=== PATIENT | female | born 1970 | race Caucasian/White ===

== ENCOUNTER 2017-03-26 14:45 | Emergency (ER) | payer MEDICARE, OTHER ==
[2017-03-26 15:04] VITALS: BP 157/84; PULSE 60; RESP 16; TEMP 98.7
--- NOTE | 2017-03-26 15:29 | ED ---
General Adult HPI - General Chief complaint: Eye Problems Stated complaint: Eye Problem Time Seen by Provider: 03/26/17 15:05 Source: patient, RN notes reviewed Mode of arrival: ambulatory Limitations: no limitations - History of Present Illness Initial comments: This is a 46-year-old female who states she came in today because she has some bleeding on her right eye. Patient denies any trauma or injury patient denies any pain or blurred vision. Patient states she woke up this morning and noted that there is a little blood on the lateral aspect of her right eye. Patient denies any itching or discomfort of the eye. Patient denies any other problems at this time. Patient denies being on any blood thinners. - Related Data Previous Rx's Medication Instructions Recorded ALPRAZolam [Xanax] 1 mg PO Q12H PRN #30 tab 06/03/16 Allergies Allergy/AdvReac Type Severity Reaction Status Date / Time codeine Allergy Anaphylaxis Verified 03/26/17 15:20 Penicillins Allergy Rash/Hives Verified 03/26/17 15:20 Review of Systems ROS Statement: Those systems with pertinent positive or pertinent negative responses have been documented in the HPI. ROS Other: All systems not noted in ROS Statement are negative. Past Medical History Past Medical History: Hyperlipidemia, Hypertension, Myocardial Infarction ([place]), Osteoarthritis ([place]) Additional Past Medical History / Comment(s): chronic back, knee, hip pain, [place] x 4. ABDOMEN WOUND Last Myocardial Infarction Date:: 2012 History of Any Multi-Drug Resistant Organisms: MRSA Date of last positivie culture/infection: 09/08/2015 MDRO Source:: Abdomen Past Surgical History: Section, Heart Catheterization With Stent, Hernia Repair, Tubal Ligation Additional Past Surgical History / Comment(s): .stents 2012, stent 2015, abdominal hernia repair initially done in 2003, revision of the abdominal hernia repair in 10/23/2014, abdominal wall exploration and placement of wound VAC. ABDOMEN SURGERY SURGICAL DEBRIDEMENT X 15 JANUARY 2015 Additional Past Anesthesia/Blood Transfusion Reaction / Comment(s): Hard time coming out of anesthesia. Date of Last Stent Placement:: 2012 Past Psychological History: Anxiety, Bipolar, Depression Smoking Status: Current every day smoker Past Alcohol Use History: Rare Past Drug Use History: Marijuana - Past Family History Father Family Medical History: COPD, CVA/TIA, Diabetes Mellitus Mother Family Medical History: COPD Additional Family Medical History / Comment(s): Hiatal hernia, anxiety General Exam - General Exam Comments Initial Comments: GENERAL Patient is well-developed and well-nourished. Patient is in mild distress. EYES Patient's pupils are equal and round. Extraocular motion is intact. Patient has a conjunctival hemorrhage on the lateral aspect of her right eye. NEURO The patient is alert and oriented 3 PYSCH Patient has normal interpersonal interactions. MUSCULOSKELETAL All 4 times and full range of motion Limitations: no limitations Course Vital Signs 03/26/17 15:02 Temperature 98.7 F Pulse Rate 60 Respiratory 16 Rate Blood Pressure 157/84 O2 Sat by Pulse 99 Oximetry Disposition Clinical Impression: Subconjunctival hemorrhage Disposition: HOME SELF-CARE Condition: Good Instructions: Subconjunctival Hemorrhage (ED) Referrals: Kwan Moore MD [Primary Care Provider] - 1-2 days Time of Disposition: 15:28
== END 2017-03-26 15:40 | disposition home or self-care (01) ==
LOC: EC 14:45
DX: H11.31 Conjunctival hemorrhage, right eye (principal); F17.200 Nicotine dependence, unspecified, uncomplicated; Z86.14 Personal history of Methicillin resistant Staphylococcus aureus infection; Z88.0 Allergy status to penicillin; Z88.5 Allergy status to narcotic agent
CPT/HCPCS: 99283

== ENCOUNTER 2017-06-01 10:23 | Emergency (ER) | payer MEDICARE, OTHER ==
--- NOTE | 2017-06-01 10:50 | ED ---
General Adult HPI - General Chief complaint: Skin/Abscess/Foreign Body Stated complaint: ?GLASS IN RT FOOT Time Seen by Provider: 06/01/17 10:45 Source: patient, family, RN notes reviewed Mode of arrival: ambulatory Limitations: no limitations - History of Present Illness Initial comments: Patient is a pleasant 46-year-old female presenting to the emergency department with right foot pain. Patient states around a month ago she stepped on a piece of glass. Patient thought that she got it all out however now questions if she did. Patient has had continued discomfort since that time. Patient states it hurts to walk on. Last tetanus immunization was 1.5 years ago. No history of chronic foot prominence region. Area discomfort is the distal plantar foot proximal to the second toe. - Related Data Previous Rx's Medication Instructions Recorded Cephalexin [Keflex] 500 mg PO QID #40 cap 06/01/17 Allergies Allergy/AdvReac Type Severity Reaction Status Date / Time codeine Allergy Anaphylaxis Verified 06/01/17 10:42 Penicillins Allergy Rash/Hives Verified 06/01/17 10:42 Review of Systems ROS Statement: Those systems with pertinent positive or pertinent negative responses have been documented in the HPI. ROS Other: All systems not noted in ROS Statement are negative. Constitutional: Denies: fever Eyes: Denies: eye pain ENT: Denies: ear pain Respiratory: Denies: cough Cardiovascular: Denies: chest pain Endocrine: Denies: fatigue Gastrointestinal: Denies: abdominal pain Genitourinary: Denies: dysuria Musculoskeletal: Reports: as per HPI. Denies: back pain Skin: Denies: rash Neurological: Denies: weakness Past Medical History Past Medical History: Hyperlipidemia, Hypertension, Myocardial Infarction ([place]), Osteoarthritis ([place]) Additional Past Medical History / Comment(s): chronic back, knee, hip pain, [place] x 4. ABDOMEN WOUND Last Myocardial Infarction Date:: 2012 History of Any Multi-Drug Resistant Organisms: MRSA Date of last positivie culture/infection: 09/08/2015 MDRO Source:: Abdomen Past Surgical History: Section, Heart Catheterization With Stent, Hernia Repair, Tubal Ligation Additional Past Surgical History / Comment(s): .stents 2012, stent 2015, abdominal hernia repair initially done in 2003, revision of the abdominal hernia repair in 10/23/2014, abdominal wall exploration and placement of wound VAC. ABDOMEN SURGERY SURGICAL DEBRIDEMENT X 15 JANUARY 2015 Additional Past Anesthesia/Blood Transfusion Reaction / Comment(s): Hard time coming out of anesthesia. Date of Last Stent Placement:: 2012 Past Psychological History: Anxiety, Bipolar, Depression Smoking Status: Current every day smoker Past Alcohol Use History: Rare Past Drug Use History: Marijuana - Past Family History Father Family Medical History: COPD, CVA/TIA, Diabetes Mellitus Mother Family Medical History: COPD Additional Family Medical History / Comment(s): Hiatal hernia, anxiety General Exam Limitations: no limitations General appearance: alert, in no apparent distress Head exam: Present: atraumatic Eye exam: Present: normal appearance Neck exam: Present: normal inspection Respiratory exam: Present: normal lung sounds bilaterally Cardiovascular Exam: Present: regular rate, normal rhythm GI/Abdominal exam: Present: soft. Absent: tenderness Extremities exam: Present: tenderness (Right plantar foot on the distal portion just proximal to the second toe with mild swelling and moderate tenderness. No erythema. No warmth.), other (Good strength with flexion and extension against resistance of distal toes. Cap refill less than 2 seconds. Sensation intact.) Neurological exam: Present: alert, other. Absent: motor sensory deficit Psychiatric exam: Present: normal affect, normal mood Skin exam: Present: normal color. Absent: rash Course Vital Signs 06/01/17 10:31 Temperature 97.7 F Pulse Rate 64 Respiratory 20 Rate Blood Pressure 146/109 O2 Sat by Pulse 95 Oximetry Procedures - Incision & Drainage Consent Obtained: verbal consent Time Out Performed?: Yes Site: foot I&D Cleaning Method: Betadine Needle Aspiration Performed?: Yes (No drainage) Patient Tolerated Procedure: well, no complications Medical Decision Making - Medical Decision Making Attempted needle I&D without any evidence of drainage. Patient and family were updated on results and need for follow-up with orthopedics for further evaluation. Patiently placed on antibiotics for possible infection. - Radiology Data Radiology results: report reviewed (Ultrasound right foot shows no evidence of foreign body), image reviewed (Foot x-ray shows no evidence of foreign body) Disposition Clinical Impression: Foot pain Disposition: HOME SELF-CARE Condition: Stable Instructions: Acute Wound Care (ED), Soft Tissue Foreign Body (ED) Additional Instructions: Please follow-up with your primary care physician and orthopedics in the next day or 2 for recheck. Antibiotics as prescribed. Return for increased pain, swelling, redness, fever, worsening symptoms or other concerns. Prescriptions: Cephalexin [Keflex] 500 mg PO QID #40 cap Referrals: Kwan Moore MD [Primary Care Provider] - 1-2 days Omar Palma MD [STAFF PHYSICIAN] - 1-2 days Time of Disposition: 13:14
--- NOTE | 2017-06-01 11:05 | XR ---
EXAMINATION TYPE: XR foot complete RT DATE OF EXAM: 06/01/2017 CLINICAL HISTORY: Stepped on a piece of glass one month ago with persistent pain near the second meta tarsal phalangeal joint concern for foreign body. TECHNIQUE: Frontal, lateral, and oblique images of the right foot are obtained. COMPARISON: None FINDINGS: There is no acute fracture/dislocation evident in the right foot. The joint spaces in the right foot appear within normal limits. The overlying soft tissue appears unremarkable. No radiopaq ue foreign body is identified. Mild hallux valgus deformity is appreciated of the first metatarsal. IMPRESSION: There is no acute fracture or dislocation in the right foot. No radiopaque foreign body is appreciated.
--- NOTE | 2017-06-01 12:41 | US ---
EXAMINATION TYPE: US extremity nonvasc mass RT DATE OF EXAM: 06/01/2017 COMPARISON: NONE CLINICAL HISTORY: r foot pain, r/o fb. Patient states she stepped on glass 1 month ago. Right foot pa in. Small lump on bottom on right foot per patient No abnormality visualized at the area of concern. No focal subcutaneous edema or soft tissue swelling is appreciated sonographically. No focal fluid collection is seen. Plantar aspect of the imaged righ t foot appear symmetric to the left foot. IMPRESSION: No sonographic evidence of radiopaque foreign body.
[2017-06-01 13:27] VITALS: BP 126/69; PULSE 69; RESP 18; TEMP 97.3
== END 2017-06-01 13:26 | disposition home or self-care (01) ==
LOC: EC 10:23
DX: M79.671 Pain in right foot (principal); M79.89 Other specified soft tissue disorders; F17.200 Nicotine dependence, unspecified, uncomplicated; Z88.0 Allergy status to penicillin; Z88.5 Allergy status to narcotic agent
CPT/HCPCS: 10060; 99284

== ENCOUNTER 2017-08-31 12:31 | Inpatient (IN) | payer MEDICARE, OTHER ==
[2017-08-31 13:01] LABS: Basophils % (A) 1 %; Eosinophils # (A) 0.2 k/uL (0-0.7); Eosinophils % (A) 2 %; HCT 47.3 % (34.0-46.0); HGB 15.4 gm/dL (11.4-16.0); Lymphocytes # (A) 1.6 k/uL (1.0-4.8); Lymphocytes % (A) 18 %; MCH 29.3 pg (25.0-35.0); MCHC 32.7 g/dL (31.0-37.0); MCV 89.8 fL (80.0-100.0); Mean Platelet Volume 7.5; Monocytes # (A) 0.4 k/uL (0-1.0); Monocytes % (A) 4 %; Neutrophils % (A) 75 %; Platelet Count 264 k/uL (150-450); RBC 5.26 m/uL (3.80-5.40); RDW 13.2 % (11.5-15.5); WBC 9.4 k/uL (3.8-10.6)
[2017-08-31 13:11] LABS: ALT 33 U/L (9-52); AST 15 U/L (14-36); Acetaminophen <10.0 ug/mL; Alkaline Phosphatase 72 U/L (38-126); Anion Gap 11 mmol/L; Blood Urea Nitrogen 17 mg/dL (7-17); Calcium 9.3 mg/dL (8.4-10.2); Carbon Dioxide 22 mmol/L (22-30); Chloride 107 mmol/L (98-107); Glucose 104 mg/dL (74-99); Potassium 4.4 mmol/L (3.5-5.1); Salicylate <1.0 mg/dL; Sodium 140 mmol/L (137-145); Total Bilirubin 0.2 mg/dL (0.2-1.3)
--- NOTE | 2017-08-31 13:13 | ED ---
General Adult HPI - General Source: patient, family, EMS, RN notes reviewed, old records reviewed Mode of arrival: EMS Limitations: no limitations <Kristopher Shay - Last Filed: 08/31/17 13:12> <Nikunj Goodwin - Last Filed: 08/31/17 20:03> - General Chief complaint: Psychiatric Symptoms Stated complaint: Mental Health Time Seen by Provider: 08/31/17 12:57 - History of Present Illness Initial comments: This is a 47-year-old female to the ER for evaluation. States she presents for evaluation regarding overdose, patient overdosed on necessary as an attempt to kill herself, suicide attempt. Patient denies taking any other drugs or alcohol. (Kristopher Shay) - Related Data Home Medications Medication Instructions Recorded Confirmed No Known Home Medications [No 08/31/17 08/31/17 Known Home Medications] Allergies Allergy/AdvReac Type Severity Reaction Status Date / Time codeine Allergy Anaphylaxis Verified 08/31/17 12:55 Penicillins Allergy Anaphylaxis Verified 08/31/17 12:55 Review of Systems ROS Other: All systems not noted in ROS Statement are negative. <Kristopher Shay - Last Filed: 08/31/17 13:12> ROS Other: All systems not noted in ROS Statement are negative. <Nikunj Goodwin - Last Filed: 08/31/17 20:03> ROS Statement: Those systems with pertinent positive or pertinent negative responses have been documented in the HPI. Past Medical History Past Medical History: Hyperlipidemia, Hypertension, Myocardial Infarction ([place]), Osteoarthritis ([place]) Additional Past Medical History / Comment(s): chronic back, knee, hip pain, [place] x 4. ABDOMEN WOUND Last Myocardial Infarction Date:: 2012 History of Any Multi-Drug Resistant Organisms: MRSA Date of last positivie culture/infection: 09/08/2015 MDRO Source:: Abdomen Past Surgical History: Section, Heart Catheterization With Stent, Hernia Repair, Tubal Ligation Additional Past Surgical History / Comment(s): .stents 2012, stent 2015, abdominal hernia repair initially done in 2003, revision of the abdominal hernia repair in 10/23/2014, abdominal wall exploration and placement of wound VAC. ABDOMEN SURGERY SURGICAL DEBRIDEMENT X 15 JANUARY 2015 Additional Past Anesthesia/Blood Transfusion Reaction / Comment(s): Hard time coming out of anesthesia. Date of Last Stent Placement:: 2012 Past Psychological History: Anxiety, Bipolar, Depression Smoking Status: Current every day smoker Past Alcohol Use History: Rare Past Drug Use History: Marijuana - Past Family History Father Family Medical History: COPD, CVA/TIA, Diabetes Mellitus Mother Family Medical History: COPD Additional Family Medical History / Comment(s): Hiatal hernia, anxiety <Kristopher Shay - Last Filed: 08/31/17 13:12> General Exam Limitations: no limitations General appearance: alert, in no apparent distress Head exam: Present: atraumatic, normocephalic, normal inspection Eye exam: Present: normal appearance, PERRL, EOMI. Absent: scleral icterus, conjunctival injection, periorbital swelling ENT exam: Present: normal exam, mucous membranes moist Neck exam: Present: normal inspection. Absent: tenderness, meningismus, lymphadenopathy Respiratory exam: Present: normal lung sounds bilaterally. Absent: respiratory distress, wheezes, rales, rhonchi, stridor Cardiovascular Exam: Present: regular rate, normal rhythm, normal heart sounds. Absent: systolic murmur, diastolic murmur, rubs, gallop, clicks GI/Abdominal exam: Present: soft, normal bowel sounds. Absent: distended, tenderness, guarding, rebound, rigid Extremities exam: Present: normal inspection, full ROM, normal capillary refill. Absent: tenderness, pedal edema, joint swelling, calf tenderness Back exam: Present: normal inspection Neurological exam: Present: alert, oriented X3, CN II-XII intact Psychiatric exam: Present: normal affect, normal mood Skin exam: Present: warm, dry, intact, normal color. Absent: rash <Kristopher Shay - Last Filed: 08/31/17 13:12> Course <Kristopher Shay - Last Filed: 08/31/17 13:12> <Nikunj Goodwin - Last Filed: 08/31/17 20:03> Vital Signs 08/31/17 08/31/17 08/31/17 12:31 12:53 13:17 Temperature 97.7 F Pulse Rate 130 H 103 H 150 H Respiratory 22 18 24 Rate Blood Pressure 149/83 113/72 O2 Sat by Pulse 94 L 94 L 93 L Oximetry 08/31/17 08/31/17 08/31/17 14:39 16:22 17:10 Temperature 97.2 F L Pulse Rate 96 88 86 Respiratory 14 15 17 Rate Blood Pressure 128/67 120/81 103/56 O2 Sat by Pulse 98 100 95 Oximetry 08/31/17 08/31/17 19:06 19:18 Temperature Pulse Rate 94 80 Respiratory 17 18 Rate Blood Pressure 109/78 109/78 O2 Sat by Pulse 95 94 L Oximetry - Reevaluation(s) Reevaluation #1: 08/31/17 13:12 Patient is medically clear for psychiatric evaluation (Kristopher Shay) Medical Decision Making - Lab Data Result diagrams: 08/31/17 12:46 08/31/17 12:46 <Kristopher Shay - Last Filed: 08/31/17 13:12> - Lab Data Result diagrams: 08/31/17 12:46 08/31/17 12:46 <Nikunj Goodwin - Last Filed: 08/31/17 20:03> - Medical Decision Making This 47-year-old came in for cervical overdose. Patient was monitored in the ER for several half hours and was still quite somnolent. Psyche numbness here twice and was unable to get any information from her because of her somnolence. At this time I feel that she needs observation and serial EKGs until she is awake enough to speak with psychiatry. I spoke with Dr. Moore who accepts the admission. Orders were placed. Psych was placed on consult. (Nikunj Goodwin) - Lab Data Lab Results 08/31/17 08/31/17 Range/Units 12:46 12:46 WBC 9.4 (3.8-10.6) k/uL RBC 5.26 (3.80-5.40) m/uL Hgb 15.4 (11.4-16.0) gm/dL Hct 47.3 H (34.0-46.0) % MCV 89.8 (80.0-100.0) fL MCH 29.3 (25.0-35.0) pg MCHC 32.7 (31.0-37.0) g/dL RDW 13.2 (11.5-15.5) % Plt Count 264 (150-450) k/uL Neutrophils % 75 % Lymphocytes % 18 % Monocytes % 4 % Eosinophils % 2 % Basophils % 1 % Neutrophils # 7.0 (1.3-7.7) k/uL Lymphocytes # 1.6 (1.0-4.8) k/uL Monocytes # 0.4 (0-1.0) k/uL Eosinophils # 0.2 (0-0.7) k/uL Basophils # 0.0 (0-0.2) k/uL Sodium 140 (137-145) mmol/L Potassium 4.4 (3.5-5.1) mmol/L Chloride 107 (98-107) mmol/L Carbon Dioxide 22 (22-30) mmol/L Anion Gap 11 mmol/L BUN 17 (7-17) mg/dL Creatinine 0.90 (0.52-1.04) mg/dL Est GFR (MDRD) Af Amer >60 (>60 ml/min/1.73 sqM) Est GFR (MDRD) Non-Af >60 (>60 ml/min/1.73 sqM) Glucose 104 H (74-99) mg/dL Calcium 9.3 (8.4-10.2) mg/dL Total Bilirubin 0.2 (0.2-1.3) mg/dL AST 15 (14-36) U/L ALT 33 (9-52) U/L Alkaline Phosphatase 72 (38-126) U/L Total Protein 7.0 (6.3-8.2) g/dL Albumin 4.0 (3.5-5.0) g/dL Salicylates <1.0 mg/dL Acetaminophen <10.0 ug/mL Disposition <Kristopher Shay - Last Filed: 08/31/17 13:12> <Nikunj Goodwin - Last Filed: 08/31/17 20:03> Clinical Impression: Overdose Disposition: ADMITTED IP TO THIS [facility] Condition: Stable
[2017-08-31] MEDS ORDERED: SODIUM CHLORIDE 0.9% 500 ML IV STA (13:57)
[2017-08-31] MEDS ORDERED: SODIUM CHLORIDE 0.9% 1,000 ML IV STA ×2 (13:57)
[2017-08-31] MEDS ORDERED: NALOXONE 0.4 MG/ML 1 ML VIAL IV PRN (19:58)
[2017-08-31 21:47] VITALS: BMI 51.7
[2017-08-31 23:43] LABS: Glucose,Whole Blood 101 mg/dL (75-99)
[2017-08-31] MEDS ORDERED: SODIUM CHLORIDE 0.9% 1,000 ML IV ONE (23:44)
[2017-09-01 00:29] LABS: ABG Base Excess -1.1 mmol/L; ABG HCO3 23 mmol/L (21-25); ABG PCO2 38 mmHg (35-45); ABG PO2 70 mmHg (83-108); ABG TCO2 24 mmol/L (19-24)
[2017-09-01 04:52] LABS: HCT 41.5 % (34.0-46.0); HGB 13.3 gm/dL (11.4-16.0); MCH 29.2 pg (25.0-35.0); MCHC 32.1 g/dL (31.0-37.0); MCV 91.1 fL (80.0-100.0); Mean Platelet Volume 6.9; Platelet Count 249 k/uL (150-450); RBC 4.56 m/uL (3.80-5.40); RDW 13.3 % (11.5-15.5)
[2017-09-01 05:03] LABS: ALT 33 U/L (9-52); AST 15 U/L (14-36); Albumin 3.3 g/dL (3.5-5.0); Alkaline Phosphatase 58 U/L (38-126); Anion Gap 4 mmol/L; Blood Urea Nitrogen 15 mg/dL (7-17); Calcium 8.9 mg/dL (8.4-10.2); Carbon Dioxide 27 mmol/L (22-30); Chloride 112 mmol/L (98-107); Glucose 109 mg/dL (74-99); Phosphorus 4.4 mg/dL (2.5-4.5); Potassium 4.2 mmol/L (3.5-5.1); Sodium 143 mmol/L (137-145); Total Bilirubin 0.4 mg/dL (0.2-1.3)
[2017-09-01 05:46] LABS: Amphetamine Screen,Urine Not Detected (NotDetected); Appearance,Urine Clear (Clear); Bacteria,Urine Occasional /hpf; Barbiturate Screen,Urine Not Detected (NotDetected); Benzodiazepines Screen,Urine Detected (NotDetected); Bilirubin,Urine Negative (Negative); Blood,Urine Negative (Negative); Cocaine Screen,Urine Not Detected (NotDetected); Color,Urine Light Yellow; Glucose,Urine (UA) Negative (Negative); Ketones,Urine Negative (Negative); Leukocyte Esterase,Urine Negative (Negative); Methadone Screen, Urine Not Detected (NotDetected); Nitrite,Urine Positive (Negative); Opiate Screen,Urine Not Detected (NotDetected); Oxycodone Screen, Urine Not Detected (NotDetected); PH, Urine 5.5 (5.0-8.0); Phencyclidine Screen,Urine Not Detected (NotDetected); Protein,Urine Negative (Negative); Specific Gravity,Urine 1.004 (1.001-1.035); Squamous Epithelial Cell,Urine <1 /hpf (0-4); Tricyclic Antidepressant,Urine Detected (NotDetected); Urn Cannabinoid Scrn Detected (NotDetected); Urobilinogen,Urine <2.0 mg/dL (<2.0); WBC,Urine 1 /hpf (0-5)
[2017-09-01] MEDS ORDERED: HALOPERIDOL LACTATE 5 MG/ML 1 ML VIAL IVP PRN (09:58)
--- NOTE | 2017-09-01 15:52 | P.CNPUL ---
History of Present Illness Consult date: 09/01/17 Reason for consult: dyspnea, hypoxemia Chief complaint: Agitation and anxiety and hypoxia and drug overdose History of present illness: Mrs. Ma is a 47-year-old female who was seen and evaluated examined in the ICU not much data can be obtained from her and she is sleeping but off note that patient has been very anxious and agitated and combative on the floor as well as in the ICU she is been restrained data has been obtained from sore from the chart as exact details are not available patient unable to give a detailed history it appears that patient intend to do and commit suicide she overdose on Seroquel patient is being monitor observe by psych services as well her EKGs are being monitored closely besides said desaturation hemodynamic status are marginal but stable she was hypotensive requiring fluid resuscitation she did response her hypoxia improved with supplemental oxygen due to her combative nature some of the medical care could not be delivered to her I reviewed her laboratory data, CBC arterial blood gas and chemistry fairly within normal limit , urine for drug screen is positive for nitrite as well as positive for tricyclic antidepressant, benzodiazepine and marijuana Review of Systems ROS unobtainable: due to mental status All systems: negative Past Medical History Past Medical History: Hyperlipidemia, Hypertension, Myocardial Infarction ([place]), Osteoarthritis (OA) Additional Past Medical History / Comment(s): chronic back, knee, hip pain, [place] x 4. ABDOMEN WOUND Last Myocardial Infarction Date:: 2012 History of Any Multi-Drug Resistant Organisms: MRSA Date of last positivie culture/infection: 09/08/2015 MDRO Source:: Abdomen Past Surgical History: Section, Heart Catheterization With Stent, Hernia Repair, Tubal Ligation Additional Past Surgical History / Comment(s): .stents 2012, stent 2015, abdominal hernia repair initially done in 2003, revision of the abdominal hernia repair in 10/23/2014, abdominal wall exploration and placement of wound VAC. ABDOMEN SURGERY SURGICAL DEBRIDEMENT X 15 JANUARY 2015 Additional Past Anesthesia/Blood Transfusion Reaction / Comment(s): Hard time coming out of anesthesia. Date of Last Stent Placement:: 2012 Past Psychological History: Anxiety, Bipolar, Depression Smoking Status: Current every day smoker Past Alcohol Use History: Rare Additional Past Alcohol Use History / Comment(s): Patient is a smoker one pack per day and is currently cut back to 6 cigarettes per day since she was 9 years of age. She does smoke marijuana on a regular basis which is medicalshaneme. She denies any alcohol use. She lives at home with her parents. 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 She is currently unemployed. [place]. Past Drug Use History: Marijuana - Past Family History Father Family Medical History: COPD, CVA/TIA, Diabetes Mellitus Mother Family Medical History: COPD Additional Family Medical History / Comment(s): Hiatal hernia, anxiety Medications and Allergies Home Medications Medication Instructions Recorded Confirmed Type No Known Home Medications [No 08/31/17 08/31/17 History Known Home Medications] Allergies Allergy/AdvReac Type Severity Reaction Status Date / Time codeine Allergy Anaphylaxis Verified 08/31/17 12:55 Penicillins Allergy Anaphylaxis Verified 08/31/17 12:55 Physical Exam Vitals: Vital Signs Temp Pulse Pulse Resp BP BP Pulse Ox 09/01/17 15:00 79 21 138/81 94 L 09/01/17 14:30 77 22 141/73 97 09/01/17 14:00 82 21 137/82 96 09/01/17 13:30 83 19 97 09/01/17 13:00 79 19 181/99 99 09/01/17 12:30 82 20 95 09/01/17 12:00 97.4 F L 74 14 148/95 98 09/01/17 11:30 97 14 134/81 98 09/01/17 11:00 87 22 141/92 92 L 09/01/17 10:30 100 20 141/92 91 L 09/01/17 10:00 86 21 141/74 93 L 09/01/17 09:30 75 18 133/73 93 L 09/01/17 09:00 77 24 133/77 93 L 09/01/17 08:30 77 19 130/75 92 L 09/01/17 08:00 79 24 137/72 97 09/01/17 07:30 80 20 138/77 97 09/01/17 07:00 100 20 131/87 92 L 09/01/17 06:30 82 24 125/85 97 09/01/17 06:00 111 H 20 133/76 92 L 09/01/17 05:30 76 22 132/88 93 L 09/01/17 05:00 123 H 20 123/90 92 L 09/01/17 04:30 94 24 104/67 92 L 09/01/17 04:00 83 24 123/76 92 L 09/01/17 03:30 82 19 104/73 93 L 09/01/17 03:00 109 H 28 H 121/77 93 L 09/01/17 02:30 106 H 29 H 122/81 86 L 09/01/17 02:00 94 21 133/76 79 L 09/01/17 01:30 98 18 136/92 86 L 09/01/17 01:00 80 18 111/68 83 L 09/01/17 00:30 76 23 140/83 92 L 08/31/17 23:30 97 F L 80 18 80/42 90 L 08/31/17 19:18 80 18 109/78 94 L 08/31/17 19:06 94 17 109/78 95 08/31/17 17:10 97.2 F L 86 17 103/56 95 08/31/17 16:22 88 15 120/81 100 Intake and Output 09/01/17 09/01/17 09/01/17 06:59 14:59 22:59 Intake Total 1630 1100 100 Output Total 450 900 130 Balance 1180 200 -30 Intake: IV 1600 1100 100 Sodium Chloride 0.9% 1, 1600 1100 100 000 ml @ 100 mls/hr IV . Q10H [facility] Rx#:[id number] Oral 30 Output: Urine 450 900 130 Other: Voiding Method Indwelling Catheter Indwelling Catheter Indwelling Catheter # Voids 1 Limitations: no limitations General appearance: Reported to be very combinative alert, in no apparent distress, currently sleeping Head exam: Present: atraumatic, normocephalic, normal inspection Eye exam: Present: normal appearance, PERRL, EOMI. Absent: scleral icterus, conjunctival injection, periorbital swelling ENT exam: Present: normal exam, mucous membranes moist Neck exam: Present: normal inspection. Absent: tenderness, meningismus, lymphadenopathy Respiratory exam: Present: normal lung sounds bilaterally. Absent: respiratory distress, wheezes, rales, rhonchi, stridor Cardiovascular Exam: Present: regular rate, normal rhythm, normal heart sounds. Absent: systolic murmur, diastolic murmur, rubs, gallop, clicks GI/Abdominal exam: Present: soft, normal bowel sounds. Absent: distended, tenderness, guarding, rebound, rigid Extremities exam: Present: normal inspection, full ROM, normal capillary refill. Absent: tenderness, pedal edema, joint swelling, calf tenderness Back exam: Present: normal inspection Neurological exam: Agitated and combative but resting right now neurological examination is grossly within normal limits CN II-XII intact Psychiatric exam: As dictated above Skin exam: Present: warm, dry, intact, normal color. Absent: rash Results - Laboratory Findings CBC and BMP: 09/01/17 04:33 09/01/17 04:33 ABG ABG pH 7.40 (7.35-7.45) 09/01/17 00:28 ABG pCO2 38 mmHg (35-45) 09/01/17 00:28 ABG pO2 70 mmHg (83-108) L 09/01/17 00:28 ABG O2 Saturation 94.0 % (94-97) 09/01/17 00:28 Abnormal lab findings: Abnormal Labs 08/31/17 08/31/17 08/31/17 12:46 12:46 23:31 Hct 47.3 H ABG pO2 Chloride Glucose 104 H POC Glucose (mg/dL) 101 H Total Protein Albumin Urine Nitrite Urine Bacteria U Tricyclic Antidepress U Benzodiazepines Scrn U Marijuana (THC) Screen 09/01/17 09/01/17 09/01/17 00:28 03:00 03:00 Hct ABG pO2 70 L Chloride Glucose POC Glucose (mg/dL) Total Protein Albumin Urine Nitrite Positive H Urine Bacteria Occasional H U Tricyclic Antidepress Detected H U Benzodiazepines Scrn Detected H U Marijuana (THC) Screen Detected H 09/01/17 04:33 Hct ABG pO2 Chloride 112 H Glucose 109 H POC Glucose (mg/dL) Total Protein 6.0 L Albumin 3.3 L Urine Nitrite Urine Bacteria U Tricyclic Antidepress U Benzodiazepines Scrn U Marijuana (THC) Screen Assessment and Plan Assessment: Major depression with suicidal attempt with drug overdose Multiple substance overdose with positive urine drug screen Urinary tract infection and early Sirs-like process cannot be excluded Transient hypoxia and hypotension improved now clearly related to dehydration Plan: We'll continue gentle rehydration supportive care patient will be started on EMPERIC antibiotics DVT and peptic ulcer disease prophylaxis will obtain chest x -ray and labs as well Time with Patient: Greater than 30
[2017-09-01] MEDS ORDERED: LEVOFLOXACIN 500MG-D5W PMX 500 MG in DEXTROSE/WATER 1 100ML.BAG IVPB SCH (16:30)
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
[2017-09-01] MEDS: HEPARIN SODIUM,PORCINE 5,000 UNIT/ML 1 ML VIAL SQ SCH (20:33)
[2017-09-02 05:32] LABS: Basophils # (A) 0.1 k/uL (0-0.2); Basophils % (A) 1 %; Eosinophils # (A) 0.2 k/uL (0-0.7); Eosinophils % (A) 3 %; HCT 43.1 % (34.0-46.0); HGB 13.7 gm/dL (11.4-16.0); Lymphocytes # (A) 1.9 k/uL (1.0-4.8); Lymphocytes % (A) 28 %; MCH 29.5 pg (25.0-35.0); MCHC 31.7 g/dL (31.0-37.0); Mean Platelet Volume 7.7; Monocytes # (A) 0.5 k/uL (0-1.0); Monocytes % (A) 7 %; Neutrophils % (A) 60 %; Platelet Count 233 k/uL (150-450); RBC 4.64 m/uL (3.80-5.40); RDW 14.7 % (11.5-15.5); WBC 6.7 k/uL (3.8-10.6)
[2017-09-02 05:43] LABS: Anion Gap 8 mmol/L; Blood Urea Nitrogen 10 mg/dL (7-17); Calcium 8.7 mg/dL (8.4-10.2); Carbon Dioxide 24 mmol/L (22-30); Chloride 108 mmol/L (98-107); Glucose 89 mg/dL (74-99); Magnesium 1.8 mg/dL (1.6-2.3); Phosphorus 4.3 mg/dL (2.5-4.5); Potassium 4.4 mmol/L (3.5-5.1); Sodium 140 mmol/L (137-145)
[2017-09-02] MEDS ORDERED: PANTOPRAZOLE 40 MG TABLET PO SCH (07:30)
--- NOTE | 2017-09-02 07:45 | CONS ---
CONSULTATION DATE OF SERVICE: 09/01/2017 PURPOSE FOR CONSULTATION: Evaluate for overdose/suicide attempt. HISTORY OF PRESENTING ILLNESS: The patient is a 47-year-old female. She was admitted to ICU after having taken an unknown quantity of Seroquel and Xanax. The patient herself stated that she had 3 tablets of Xanax in a bottle which she took. She also described as having taken "a handful of Seroquel at a time in attempt to kill herself", Apparently on admission to ICU, she was very confused. She became aggressive. She was yelling and this hurtling obscenities at staff. She became very combative. She received p.r.n. medications. She slept some last night. Today she has been awake and clear in her thoughts. She told me today that she did not recall anything about yesterday including the difficult behavior she had. She said that she did have some suicide thoughts, though it came out of a stressful situation at home. She had been away for a few days. She returned early only to find that her significant other had been having an affair. They got into a big argument. She became agitated and had taken the medications. The patient says today she is not suicidal. She acknowledges that she had a behavior like this in 2012. She says that otherwise she is at home. She has not been sleeping well for many months. She has had low mood. She says the home situation is very stressful. She lives with her parents, her son and a niece and nephew. She says the niece and nephew are heavy into drugs. She says that she has had depression over a long period of time, though she ended up losing medication coverage so has not been taking any psychotropic medications. She did have 2 admissions in July 2016 in May 2016. During those admissions, it was noted that the patient was on Xanax 1 mg twice a day and Celexa 40 mg a day. There are no further details. The patient was vague at what point in time she may have stopped those medications. When I asked her about her daily life situation, she says mostly she is at home. She sits on the couch and watches TV as about her only activity. Notes that she smokes marijuana on a daily basis. She reports that she does not drink alcohol or do other abusive substances. MENTAL STATUS: When he saw the patient, she was lying in bed. She gave fair eye contact. Psychomotor activity was slow. Speech was monotone. She answered questions with brief responses. Her affect was blunted. Her mood reserved. It was difficult to say if she was distressed. ASSESSMENT: This 47-year-old female is diagnosed with major depression and overdose of Seroquel and Xanax. She also has likely marijuana dependence. When I started talking to the patient about the issues of ongoing marijuana use in the phase of depressive issues, the patient became very angry and indicated that she had no interest in getting information regarding marijuana. She said her issues at home had nothing to do with marijuana, but rather a bad situation. I did make the suggestion that use of marijuana can contribute to depression as well as impulsive behavior, though did not make an effort to discuss issues further. At this point, the patient has shown progress in terms of some clearing of cognition. I will not make any further changes in treatment at this time. I did make mention to the patient that there might be the option of transferring to the psychiatric unit if that seemed to be a good treatment choice. Indicated to nursing that we would need to look at making connection with the family if the patient were to return home as we need some reliable information about any risks for safety. I will continue to follow. GILBERTO / KAIT: [id number] /
[2017-09-02] MEDS: HEPARIN SODIUM,PORCINE 5,000 UNIT/ML 1 ML VIAL SQ SCH (08:59)
--- NOTE | 2017-09-02 09:20 | XR ---
EXAMINATION TYPE: XR chest 1V portable DATE OF EXAM: 09/02/2017 COMPARISON: 07/24/2016 HISTORY: Chest pain TECHNIQUE: Single frontal view of the chest is obtained. FINDINGS: Nodular appearing 8 mm density right midlung. Heart prominent but stable. No pleural effus ion or pneumothorax. No overt failure. IMPRESSION: 8 mm right midlung area of nodule or subsegmental consolidation. Short-term follow-up PA and lateral views the chest recommended.
[2017-09-02] MEDS ORDERED: CITALOPRAM HYDROBROMIDE 20 MG TAB PO SCH (09:30)
[2017-09-02] MEDS ORDERED: METOPROLOL TARTRATE 12.5 MG TAB PO SCH (12:45)
--- NOTE | 2017-09-02 12:52 | P.PN ---
Subjective Progress Note Date: 09/02/17 09/02/2017, patient seen and evaluated examined during the rounds she is awake and alert breathing comfortably more comfortable her blood pressure noted to be very I1 90/70 heart rate in 70s to 80s patient used to take Lopressor 2 times a day has stopped as well unknown time in the past, patient is being evaluated for the drug overdose suicidal ideation thought by psychiatric service Objective - Vital Signs Vital signs: Vital Signs Temp 98.6 F 09/02/17 12:00 Pulse 72 09/02/17 12:00 Resp 20 09/02/17 12:00 BP 171/100 09/02/17 12:00 Pulse Ox 93 L 09/02/17 12:00 Intake & Output 09/01/17 09/02/17 09/02/17 18:59 06:59 18:59 Intake Total 1600 740 500 Output Total 1580 1630 1030 Balance 20 -250 -530 Weight 141.5 kg Intake: IV 1600 740 400 Levofloxacin 500Mg-D5w 100 Pmx 500 mg In Dextrose/ Water 1 100ml.bag @ 100 mls/hr IVPB Q24H [facility] Rx#: [id number] Sodium Chloride 0.9% 1, 1500 740 400 000 ml @ 100 mls/hr IV . Q10H STA Rx#:[id number] Intake, IV Titration 100 Amount Sodium Chloride 0.9% 1, 100 000 ml @ 100 mls/hr IV . Q10H STA Rx#:[id number] Output: Urine 1580 1630 1030 Other: Voiding Method Indwelling Catheter Indwelling Catheter Indwelling Catheter - Exam Limitations: altered mental status General appearance: alert, in no apparent distress Head exam: Present: atraumatic Eye exam: Present: normal appearance, PERRL ENT exam: Present: mucous membranes dry Neck exam: Present: normal inspection Respiratory exam: Present: decreased breath sounds Cardiovascular Exam: Present: tachycardia, systolic murmur GI/Abdominal exam: Present: soft. Absent: tenderness Extremities exam: Present: normal inspection Neurological exam: Present: alert, oriented X3. Absent: motor sensory deficit Psychiatric exam: Present: normal affect, normal mood - Labs CBC & Chem 7: 09/02/17 04:50 09/02/17 04:50 Labs: Abnormal Lab Results - Last 24 Hours (Table) 09/02/17 Range/Units 04:50 Chloride 108 H (98-107) mmol/L Assessment and Plan Assessment: unControlled hypertension Major depression with suicidal attempt with drug overdose Multiple substance overdose with positive urine drug screen Urinary tract infection and early Sirs-like process cannot be excluded Transient hypoxia and hypotension improved now clearly related to dehydration Plan: Resume Lopressor 12.5 by mouth 2 times a day also on 25 mg of Cozaar and monitor observe clinical course closely, We'll continue gentle rehydration supportive care patient will be started on EMPERIC antibiotics DVT and peptic ulcer disease prophylaxis patient can be moved out of the ICU to the remote telemetry Time with Patient: Greater than 30
--- NOTE | 2017-09-02 14:45 | CDI ---
Last Revision, July 2017 Documentation Clarification Form Date: 09/02/2017 2:18:00 PM From: Rachelle Meyer Admit Date: 08/31/2017 7:58:00 PM Patient Name: Mirela Ma Visit Number: [id number] Discharge Date: ATTENTION: The Clinical Documentation Specialists (CDI) and [facility] Coding Staff appreciate your assistance in clarifying documentation. Please respond to the clarification below the line at the bottom and electronically sign. The CDI & [facility] Coding staff will review the response and follow-up if needed. Please note: Queries are made part of the Legal Health Record. If you have any questions, please contact the author of this message via ITS. Dr. Kwan Moore Altered mental status was documented in the in your consult on 09/01/17 review of systems unobtainable due to mental status. Patient history/risk factors: Hyperlipidemia, Hypertension, [place] Clinical Indicators: Present for intent to commit suicide with overdose on Seroquel. She is noted to have anxiety, agitated, combative and had to be restrained. She was hypotensive and requiring fluid resuscitation. Labs: Urine drug screen is positive for nitrite, tricyclic antidepressants, benzodiazepine and marijuana. WBC 9.0, 09/01/17 Psych consult: on admission to ICU she was very confused. She became aggressive. She was yelling obscenities at staff. Chest X-ray: 8 mm right midlung area of nodule or subsegmental consolidation Treatment: IV Fluids ICU/Telemetary monitoring Monitor labs In your professional opinion, please clarify the etiology of the altered mental status, if known. Encephalopathy (specify Type: Metabolic encephalopathy, Toxic encephalopathy, Other, and Underlying Medical Illness) Delirium (specify cause) Other condition (please specify) Unable to determine Please continue to document in your progress notes and discharge summary in order to capture severity of illness and risk of mortality. Include clinical findings that support your diagnosis. MTDD
--- NOTE | 2017-09-02 15:12 | CONS ---
CONSULTATION DATE OF SERVICE: 09/02/2017 PURPOSE FOR CONSULTATION: Evaluate for overdose/suicide attempt. INTERVAL HISTORY: The patient has been doing fairly well. She had a quiet evening last night. She has been awake. She interacts with staff. She has been appropriate in her mood and behavior. I met with the patient and her mother. The concern was about behavior at home that prompted her coming into the hospital, mainly an overdose. Both mother and the patient confirmed that the behavior was impulsive and out of character for the patient. Mother indicates that she believes it would be safe for the patient to return home and that inpatient psychiatric hospitalization is not needed at this time. The patient herself was in agreement with that. She stated that she was willing to continue on medications. Both she and her mother believe that Celexa was quite helpful for her in the past, though she did not have the money to keep getting refills and so ended up going off it. Mother indicates that the patient is consistent in her followup with Dr. Moore. The patient is willing to be referred for outpatient counseling, which she sees as a potential benefit for her. At this point, from a psychiatric standpoint, the patient is stable to return home. I have completed a negative cert in regards to the petition for hospitalization. I indicated to the nurse that the unit delinquency prevention social worker should meet with the patient to set up a follow-up appointment for individual counseling. She will continue on Celexa [address] Moore will follow her up for her medications. MMODL / IJN: [id number] /
[2017-09-02 15:36] VITALS: BP 163/85; PULSE 70; RESP 14; TEMP 97.8
[2017-09-02] MEDS ORDERED: LEVOFLOXACIN 500 MG TAB PO SCH (16:00)
[2017-09-03] MEDS ORDERED: LOSARTAN 25 MG TAB PO SCH (09:00)
--- NOTE | 2017-09-06 15:00 | CDI ---
Last Revision, July 2017 Documentation Clarification Form Date: 09/02/2017 2:18:00 PM From: Rachelle Meyer RN, CCDS Admit Date: 08/31/2017 7:58:00 PM Patient Name: Mirela Ma Visit Number: [id number] Discharge Date: ATTENTION: The Clinical Documentation Specialists (CDI) and [facility] Coding Staff appreciate your assistance in clarifying documentation. Please respond to the clarification below the line at the bottom and electronically sign. The CDI & [facility] Coding staff will review the response and follow-up if needed. Please note: Queries are made part of the Legal Health Record. If you have any questions, please contact the author of this message via ITS. Dr. Kwan Moore Altered mental status was documented in the in your consult on 09/01/17 review of systems unobtainable due to mental status. Patient history/risk factors: Hyperlipidemia, Hypertension, [place] Clinical Indicators: Present for intent to commit suicide with overdose on Seroquel. She is noted to have anxiety, agitated, combative and had to be restrained. She was hypotensive and requiring fluid resuscitation. Labs: Urine drug screen is positive for nitrite, tricyclic antidepressants, benzodiazepine and marijuana. WBC 9.0, 09/01/17 Psych consult: on admission to ICU she was very confused. She became aggressive. She was yelling obscenities at staff. Chest X-ray: 8 mm right midlung area of nodule or subsegmental consolidation Treatment: IV Fluids ICU/Telemetary monitoring Monitor labs In your professional opinion, please clarify the etiology of the altered mental status, if known. Encephalopathy (specify Type: Metabolic encephalopathy, Toxic encephalopathy, Other, and Underlying Medical Illness) Delirium (specify cause) Other condition (please specify) Unable to determine Please continue to document in your progress notes and discharge summary in order to capture severity of illness and risk of mortality. Include clinical findings that support your diagnosis. MTDD
--- NOTE | 2017-09-15 09:13 | CDI ---
Last Revision, July 2017 Documentation Clarification Form Date: 09/02/2017 2:18:00 PM From: Rachelle Meyer RN, CCDS Admit Date: 08/31/2017 7:58:00 PM Patient Name: Mirela Ma Visit Number: [id number] Discharge Date: ATTENTION: The Clinical Documentation Specialists (CDI) and [facility] Coding Staff appreciate your assistance in clarifying documentation. Please respond to the clarification below the line at the bottom and electronically sign. The CDI & [facility] Coding staff will review the response and follow-up if needed. Please note: Queries are made part of the Legal Health Record. If you have any questions, please contact the author of this message via ITS. Dr. Kwan Moore Altered mental status was documented in the in your consult on 09/01/17 review of systems unobtainable due to mental status. Patient history/risk factors: Hyperlipidemia, Hypertension, [place] Clinical Indicators: Present for intent to commit suicide with overdose on Seroquel. She is noted to have anxiety, agitated, combative and had to be restrained. She was hypotensive and requiring fluid resuscitation. Labs: Urine drug screen is positive for nitrite, tricyclic antidepressants, benzodiazepine and marijuana. WBC 9.0, 09/01/17 Psych consult: on admission to ICU she was very confused. She became aggressive. She was yelling obscenities at staff. Chest X-ray: 8 mm right midlung area of nodule or subsegmental consolidation Treatment: IV Fluids ICU/Telemetary monitoring Monitor labs In your professional opinion, please clarify the etiology of the altered mental status, if known: Encephalopathy (specify Type: Metabolic encephalopathy, Toxic encephalopathy, Other, and Underlying Medical Illness) Delirium (specify cause) Other condition (please specify) Unable to determine Please continue to document in your progress notes and discharge summary in order to capture severity of illness and risk of mortality. Include clinical findings that support your diagnosis. MTDD
--- NOTE | 2017-09-29 14:36 | CDI ---
Last Revision, July 2017 Documentation Clarification Form Date: 09/02/2017 2:18:00 PM From: Rachelle Meyer RN, CCDS Admit Date: 08/31/2017 7:58:00 PM Patient Name: Mirela Ma Visit Number: [id number] Discharge Date: ATTENTION: The Clinical Documentation Specialists (CDI) and [facility] Coding Staff appreciate your assistance in clarifying documentation. Please respond to the clarification below the line at the bottom and electronically sign. The CDI & [facility] Coding staff will review the response and follow-up if needed. Please note: Queries are made part of the Legal Health Record. If you have any questions, please contact the author of this message via ITS. Dr. Kwan Moore Altered mental status was documented in the consult on 09/01/17 review of systems unobtainable due to mental status. Patient history/risk factors: Hyperlipidemia, Hypertension, [place] Clinical Indicators: Per your H/P: Present for intent to commit suicide with overdose on Seroquel. She is noted to have anxiety, agitated, combative and had to be restrained. She is aggressive, yelling and screaming. She was hypotensive and requiring fluid resuscitation. 08/31/17 Vital sign: 80/42 80 18 97. 90 % RA Labs: Urine drug screen is positive for nitrite, tricyclic antidepressants, benzodiazepine and marijuana. WBC 9.0, 09/01/17 Psych consult: on admission to ICU she was very confused. She became aggressive. She was yelling obscenities at staff. Chest X-ray: 8 mm right midlung area of nodule or subsegmental consolidation Treatment: IV Fluids ICU/Telemetary monitoring Monitor labs Neuro checks per protocol In your professional opinion, please further clarify the etiology of the altered mental status, if known. Encephalopathy (specify Type: Toxic encephalopathy, Metabolic encephalopathy, Other, and Underlying Medical Illness) Delirium (specify cause) Other condition (please specify) Unable to determine Please continue to document in your progress notes and discharge summary in order to capture severity of illness and risk of mortality. Include clinical findings that support your diagnosis. MTDD
--- NOTE | 2017-10-01 09:14 | DS ---
DISCHARGE SUMMARY ADDENDUM: Please add under diagnoses: 1. Acute toxic encephalopathy, possibly due to Seroquel overdose. MMODL / IJN: [id number] /
--- NOTE | 2017-10-30 07:27 | DS ---
DISCHARGE SUMMARY DATE OF ADMISSION: 08/31/2017. DATE OF DISCHARGE: 09/02/2017. MEDICATIONS: None. CONDITION: Stable. PROGNOSIS: Guarded. Ambulate as tolerated. Patient was admitted with acute toxic encephalopathy secondary to Seroquel overdose. She was stabilized from medical admission. In the ICU she had delirium and emotional disturbance. Once cleared by psychiatry and Neurology for discharge, she signed herself out AGAINST MEDICAL ADVICE and left the hospital from the ICU. MMODL / IJN: [id number] /
== END 2017-09-02 15:40 | disposition home or self-care (01) | DRG 917 ==
LOC: EC 12:31 → 6SEL 19:58 → 6ICU 23:52
PROVIDERS: ADMIT Family Medicine; ATTEND Family Medicine
DX: T43.592A Poisoning by other antipsychotics and neuroleptics, intentional self-harm, initial encounter (principal); G92 Toxic encephalopathy; Z78.1 Physical restraint status; Z68.42 Body mass index [BMI] 45.0-49.9, adult; N39.0 Urinary tract infection, site not specified; F31.9 Bipolar disorder, unspecified; I25.10 Atherosclerotic heart disease of native coronary artery without angina pectoris; E78.5 Hyperlipidemia, unspecified; I10 Essential (primary) hypertension; M19.90 Unspecified osteoarthritis, unspecified site; R01.1 Cardiac murmur, unspecified; R00.0 Tachycardia, unspecified; R09.02 Hypoxemia; E86.0 Dehydration; F12.20 Cannabis dependence, uncomplicated; R45.87 Impulsiveness; F17.210 Nicotine dependence, cigarettes, uncomplicated; E66.9 Obesity, unspecified; F41.9 Anxiety disorder, unspecified; Z83.3 Family history of diabetes mellitus; I25.2 Old myocardial infarction; Z82.5 Family history of asthma and other chronic lower respiratory diseases; Z82.3 Family history of stroke; Z88.0 Allergy status to penicillin; Z88.5 Allergy status to narcotic agent; Z79.899 Other long term (current) drug therapy; Z86.14 Personal history of Methicillin resistant Staphylococcus aureus infection; Z87.19 Personal history of other diseases of the digestive system; Z95.5 Presence of coronary angioplasty implant and graft; Z91.5 Personal history of self-harm
CPT/HCPCS: 36415; 36600; 71045; 80048; 80053; 80306; 81001; 82075; 82805; 83520; 83735; 84100; 85025; 85027; 93005; 96360; 96361; 99285

== ENCOUNTER 2021-01-10 20:36 | Observation (INO) | payer MEDICARE, OTHER ==
[2021-01-10] MEDS ORDERED: LORazepam 2 MG/ML INJ IV STA (21:05)
[2021-01-10 21:14] LABS: Basophils # (A) 0.1 k/uL (0-0.2); Basophils % (A) 0 %; Eosinophils # (A) 0.2 k/uL (0-0.7); Eosinophils % (A) 2 %; HCT 43.9 % (34.0-46.0); HGB 15.1 gm/dL (11.4-16.0); Lymphocytes # (A) 1.8 k/uL (1.0-4.8); Lymphocytes % (A) 12 %; MCH 29.8 pg (25.0-35.0); MCHC 34.4 g/dL (31.0-37.0); MCV 86.7 fL (80.0-100.0); Mean Platelet Volume 7.2; Monocytes # (A) 0.7 k/uL (0-1.0); Monocytes % (A) 5 %; Neutrophils # (A) 11.9 k/uL (1.3-7.7); Neutrophils % (A) 80 %; Platelet Count 282 k/uL (150-450); RBC 5.06 m/uL (3.80-5.40); RDW 14.1 % (11.5-15.5); WBC 14.8 k/uL (3.8-10.6)
[2021-01-10 21:23] LABS: Albumin 4.1 g/dL (3.5-5.0); Magnesium 1.7 mg/dL (1.6-2.3); Potassium 4.6 mmol/L (3.5-5.1); Total Bilirubin 0.5 mg/dL (0.2-1.3)
--- NOTE | 2021-01-10 21:29 | XR ---
EXAMINATION TYPE: XR chest 2V DATE OF EXAM: 01/10/2021 COMPARISON: 09/02/2017 HISTORY: Chest pain TECHNIQUE: 2 views FINDINGS: There is no heart failure nor confluent pneumonic infiltrate. Costophrenic angles are clear . There are chest leads. IMPRESSION: No active cardiopulmonary disease. Normal heart.
[2021-01-10 21:41] LABS: D-Dimer 0.53 mg/L FEU (<0.60); Partial Thromboplastin Time 23.5 sec (22.0-30.0); Prothrombin Time 10.3 sec (9.0-12.0)
[2021-01-10] MEDS ORDERED: ASPIRIN 81 MG PO STA (21:52)
[2021-01-10] MEDS ORDERED: HYDROmorphone 0.5 MG/0.5 ML SYRINGE IVP STA (21:53)
--- NOTE | 2021-01-10 21:55 | ED ---
General Adult HPI - General Chief complaint: Chest Pain Stated complaint: Chest Pain Time Seen by Provider: 01/10/21 20:48 Source: patient, RN notes reviewed Mode of arrival: wheelchair Limitations: no limitations - History of Present Illness Initial comments: 50-year-old female with a past medical history of CAD with 5 stents presents to the emergency room for chest pain. Patient reports that she is having chest pain and left shoulder numbness. States the pain is sharp in nature. Patient also feels short of breath. States she feels very anxious. Patient reports the pain started around 3:30 this afternoon or about 5 hours prior to arrival. She states she also feels diaphoretic. Patient has no other complaints at this time including shortness of breath, chest pain, abdominal pain, nausea or vomiting, headache, or visual changes. - Related Data Home Medications Medication Instructions Recorded Confirmed No Known Home Medications 08/31/17 08/31/17 Allergies Allergy/AdvReac Type Severity Reaction Status Date / Time codeine Allergy Anaphylaxis Verified 01/10/21 20:45 Influenza Virus Vaccines Allergy Anaphylaxis Verified 01/10/21 20:45 Penicillins Allergy Anaphylaxis Verified 01/10/21 20:45 Review of Systems ROS Statement: Those systems with pertinent positive or pertinent negative responses have been documented in the HPI. ROS Other: All systems not noted in ROS Statement are negative. Past Medical History Past Medical History: Hyperlipidemia, Hypertension, Myocardial Infarction ([place]), Osteoarthritis ([place]) Additional Past Medical History / Comment(s): chronic back, knee, hip pain, [place] x 4. ABDOMEN WOUND Last Myocardial Infarction Date:: 2012 History of Any Multi-Drug Resistant Organisms: MRSA Date of last positivie culture/infection: 09/08/2015 MDRO Source:: Abdomen Past Surgical History: Section, Heart Catheterization With Stent, Hernia Repair, Tubal Ligation Additional Past Surgical History / Comment(s): .stents 2012, stent 2015, abdominal hernia repair initially done in 2003, revision of the abdominal hernia repair in 10/23/2014, abdominal wall exploration and placement of wound VAC. ABDOMEN SURGERY SURGICAL DEBRIDEMENT X 15 JANUARY 2015 Additional Past Anesthesia/Blood Transfusion Reaction / Comment(s): Hard time coming out of anesthesia. Date of Last Stent Placement:: 2012 Past Psychological History: Anxiety, Bipolar, Depression Smoking Status: Current every day smoker Past Alcohol Use History: Rare Past Drug Use History: IV Drug Use, Marijuana - Past Family History Father Family Medical History: COPD, CVA/TIA, Diabetes Mellitus Mother Family Medical History: COPD Additional Family Medical History / Comment(s): Hiatal hernia, anxiety General Exam Limitations: no limitations General appearance: alert, in no apparent distress Head exam: Present: atraumatic, normocephalic, normal inspection Eye exam: Present: normal appearance, PERRL, EOMI. Absent: scleral icterus, conjunctival injection, periorbital swelling ENT exam: Present: normal exam, mucous membranes moist Neck exam: Present: normal inspection, full ROM. Absent: tenderness, meningismus, lymphadenopathy Respiratory exam: Present: normal lung sounds bilaterally. Absent: respiratory distress, wheezes, rales, rhonchi, stridor Cardiovascular Exam: Present: regular rate, normal rhythm, normal heart sounds. Absent: systolic murmur, diastolic murmur, rubs, gallop, clicks GI/Abdominal exam: Present: soft, normal bowel sounds. Absent: distended, tenderness, guarding, rebound, rigid Course Vital Signs 01/10/21 01/10/21 20:43 22:22 Temperature 97.9 F 97.7 F Pulse Rate 98 70 Respiratory 26 H 18 Rate Blood Pressure 156/87 123/74 O2 Sat by Pulse 95 91 L Oximetry EKG Findings - EKG Comments: EKG Findings:: 2054: Sinus rhythm, ventricular rate 85, AL interval 136, QTC 473. 2055: Normal sinus rhythm, ventricular rate 72, QRS duration 80, QTc 453 Medical Decision Making - Medical Decision Making Vitals are stable. Patient very anxious upon arrival. Nonischemic. Pain did not resolve with nitro 3 at home, although patient reports these may have been . CBC shows leukocytosis, likely reactive. CMP unremarkable. Troponin negative. D-dimer within normal limits. Given patient's risk factors she will be admitted for cardiology consultation and trending troponin. - Lab Data Result diagrams: 01/10/21 21:07 01/10/21 21:07 Lab Results 01/10/21 01/10/21 01/10/21 Range/Units 21:07 21:07 21:07 WBC 14.8 H (3.8-10.6) k/uL RBC 5.06 (3.80-5.40) m/uL Hgb 15.1 (11.4-16.0) gm/dL Hct 43.9 (34.0-46.0) % MCV 86.7 (80.0-100.0) fL MCH 29.8 (25.0-35.0) pg MCHC 34.4 (31.0-37.0) g/dL RDW 14.1 (11.5-15.5) % Plt Count 282 (150-450) k/uL MPV 7.2 Neutrophils % 80 % Lymphocytes % 12 % Monocytes % 5 % Eosinophils % 2 % Basophils % 0 % Neutrophils # 11.9 H (1.3-7.7) k/uL Lymphocytes # 1.8 (1.0-4.8) k/uL Monocytes # 0.7 (0-1.0) k/uL Eosinophils # 0.2 (0-0.7) k/uL Basophils # 0.1 (0-0.2) k/uL PT 10.3 (9.0-12.0) sec INR 1.0 (<1.2) APTT 23.5 (22.0-30.0) sec D-Dimer 0.53 (<0.60) mg/L FEU Sodium 135 L (137-145) mmol/L Potassium 4.6 (3.5-5.1) mmol/L Chloride 103 (98-107) mmol/L Carbon Dioxide 23 (22-30) mmol/L Anion Gap 9 mmol/L BUN 14 (7-17) mg/dL Creatinine 0.92 (0.52-1.04) mg/dL Est GFR (CKD-EPI)AfAm 83 (>60 ml/min/1.73 sqM) Est GFR (CKD-EPI)NonAf 72 (>60 ml/min/1.73 sqM) Glucose 111 H (74-99) mg/dL Calcium 9.0 (8.4-10.2) mg/dL Magnesium 1.7 (1.6-2.3) mg/dL Total Bilirubin 0.5 (0.2-1.3) mg/dL AST 23 (14-36) U/L ALT 17 (4-34) U/L Alkaline Phosphatase 78 (38-126) U/L Troponin I (0.000-0.034) ng/mL Total Protein 7.0 (6.3-8.2) g/dL Albumin 4.1 (3.5-5.0) g/dL Lipase 81 (23-300) U/L 01/10/21 Range/Units 21:07 WBC (3.8-10.6) k/uL RBC (3.80-5.40) m/uL Hgb (11.4-16.0) gm/dL Hct (34.0-46.0) % MCV (80.0-100.0) fL MCH (25.0-35.0) pg MCHC (31.0-37.0) g/dL RDW (11.5-15.5) % Plt Count (150-450) k/uL MPV Neutrophils % % Lymphocytes % % Monocytes % % Eosinophils % % Basophils % % Neutrophils # (1.3-7.7) k/uL Lymphocytes # (1.0-4.8) k/uL Monocytes # (0-1.0) k/uL Eosinophils # (0-0.7) k/uL Basophils # (0-0.2) k/uL PT (9.0-12.0) sec INR (<1.2) APTT (22.0-30.0) sec D-Dimer (<0.60) mg/L FEU Sodium (137-145) mmol/L Potassium (3.5-5.1) mmol/L Chloride (98-107) mmol/L Carbon Dioxide (22-30) mmol/L Anion Gap mmol/L BUN (7-17) mg/dL Creatinine (0.52-1.04) mg/dL Est GFR (CKD-EPI)AfAm (>60 ml/min/1.73 sqM) Est GFR (CKD-EPI)NonAf (>60 ml/min/1.73 sqM) Glucose (74-99) mg/dL Calcium (8.4-10.2) mg/dL Magnesium (1.6-2.3) mg/dL Total Bilirubin (0.2-1.3) mg/dL AST (14-36) U/L ALT (4-34) U/L Alkaline Phosphatase (38-126) U/L Troponin I <0.012 (0.000-0.034) ng/mL Total Protein (6.3-8.2) g/dL Albumin (3.5-5.0) g/dL Lipase (23-300) U/L Disposition Clinical Impression: Chest pain Disposition: ADMITTED IP TO THIS HOSP Is patient prescribed a controlled substance at d/c from ED?: No Referrals: Kwan Moore MD [Primary Care Provider] - 1-2 days Time of Disposition: 22:26
[2021-01-10] MEDS ORDERED: NITROGLYCERIN SL TABS 0.4 MG TAB SUBLINGUAL PRN (22:36)
[2021-01-10] MEDS ORDERED: ONDANSETRON 4 MG/2 ML VIAL IVP PRN (22:39)
[2021-01-11] MEDS: HYDROmorphone 0.5 MG/0.5 ML SYRINGE IVP PRN ×4 (01:11→15:44)
[2021-01-11 01:28] LABS: Glucose,Whole Blood 107 mg/dL (75-99)
[2021-01-11] MEDS ORDERED: LORazepam 2 MG/ML INJ IV STA (07:55)
[2021-01-11] MEDS ORDERED: ATORVASTATIN 80 MG TAB PO SCH ×2 (08:11→21:00)
[2021-01-11] MEDS ORDERED: METOPROLOL SUCCINATE (ER) 25 MG TAB.ER.24H PO SCH ×2 (08:11→21:00)
--- NOTE | 2021-01-11 08:54 | CONS ---
CONSULTATION Mirela Ma is a 50-year-old lady who is morbidly obese and seems to be quite noncompliant with medications. She has history of CAD with prior stenting of circumflex performed in May, rechecked in July and this was in 2015. However, she stopped all her medications and recently saw Dr. Melgoza and medications were resumed in the form of aspirin 81 mg daily, metoprolol succinate 25 mg daily and Lipitor 80 mg daily. She was at a [facility] yesterday and developed chest discomfort and decided to come to the emergency room. She was having left shoulder numbness and a sharp pain in the left chest. Quality of pain seemed very atypical. She was quite anxious on arrival and after arrival 3 sets of troponins have been performed and were unremarkable. When I walked into the room, she was actually sleeping and I asked her about the chest pain. She started crying and then I asked her about compliance with medications and then she was very rude and nasty, did not wish to see me and wanted to see Dr. Melgoza. I explained to her that I am production operator and I will be the one evaluating her. She continues to smoke. When I questioned about her smoking, she was also upset again. However, it appears that this patient is noncompliant with medications, wishes to have some pain medications and has no chest pain to suggest angina. She carries a diagnosis of anxiety, depression, possible bipolar disorder, smokes every day and uses marijuana. At the time of my evaluation, she is more upset but does not have any chest discomfort. Her 3 sets of troponins are unremarkable. EKG is unremarkable. I am suggesting that we should optimize her medical therapy and suggested that I will resume aspirin 81 mg daily, metoprolol succinate and Lipitor. She is receptive to this. PAST MEDICAL HISTORY: 1. Morbid obesity. 2. Smoking and COPD, possible sleep apnea. 3. History of smoking and marijuana use and also IV drug abuse in the past according to the chart. 4. She has anxiety and depression. 5. She has a chronic back pain and knee and hip pain as well. 6. She is status post PCI of circumflex in May 2016, which was patent in July 2016. EXAMINATION: Her blood pressure is 130/70, pulse rate is 68 per minute regular. HEENT unremarkable. Fundus was not examined by me. Neck is supple. Short, thick cannot appreciate JVD. No carotid bruit. Heart exam reveals S1, S2. distant heart sounds. No significant murmurs. Lungs reveal diminished air entry. Abdomen is soft. Lower extremities reveal diminished pulses. Central nervous system grossly no focal deficits. EKG revealed sinus mechanism, leftward axis, nonspecific ST changes. LAB DATA: Reveals normal troponins. IMPRESSION: 1. Agitation. 2. Atypical chest pain. 3. History of coronary artery disease with previous stenting of circumflex in 2016. 4. Obesity. 5. Hypertension. 6. Hyperlipidemia. 7. History of bipolar disorder. RECOMMENDATIONS: I am recommending that we should resume her medications and observe her till tomorrow. If she has no further pain, she can be discharged. I would increase activity. However, patient is agitated. She may sign out against medical advice. Advised to be compliant with medications. Thank you very much for the consult. MMODL / IJN: [id number] /
[2021-01-11] MEDS ORDERED: ASPIRIN 81 MG PO SCH (09:00)
[2021-01-11] MEDS ORDERED: ASPIRIN 325 MG TAB PO SCH (09:00)
[2021-01-11 09:56] LABS: Chol/HDL Ratio 3.37; LDL Cholesterol,Calculated 66.8 mg/dL (0.0-131.0); VLDL Calculation 16.2 mg/dL (5.00-40.00)
[2021-01-11 15:17] VITALS: BP 115/73; PULSE 58; RESP 20; TEMP 98.2
--- NOTE | 2021-01-11 21:34 | P.HPIM ---
History of Present Illness H&P Date: 01/11/21 Chief Complaint: Chest pain 50-year-old female with a past medical history of CAD with 5 stents presents to the emergency room for chest pain. Patient reports that she is having chest pain and left shoulder numbness. States the pain is sharp in nature. Patient also feels short of breath. States she feels very anxious. Patient reports the pain started around 3:30 this afternoon or about 5 hours prior to arrival. She states she also feels diaphoretic. Patient has no other complaints at this time including shortness of breath, chest pain, abdominal pain, nausea or vomiting, headache, or visual changes. EKG Findings:: 2054: Sinus rhythm, ventricular rate 85, PA interval 136, QTC 473. 2055: Normal sinus rhythm, ventricular rate 72, QRS duration 80, QTc 453 CBC shows leukocytosis, likely reactive. CMP unremarkable. Troponin negative. D-dimer within normal limits. Given patient's risk factors she will be admitted for cardiology consultation and trending troponin. Review of Systems REVIEW OF SYSTEMS: CONSTITUTIONAL: No fever, no malaise, no fatigue. HEENT: No recent visual problems or hearing problems. Denied any sore throat. CARDIOVASCULAR: No chest pain, orthopnea, PND, no palpitations, no syncope. PULMONARY: No shortness of breath, no cough, no hemoptysis. GASTROINTESTINAL: No diarrhea, no nausea, no vomiting, no abdominal pain. NEUROLOGICAL: No headaches, no weakness, no numbness. HEMATOLOGICAL: Denies any bleeding or petechiae. GENITOURINARY: Denies any burning micturition, frequency, or urgency. MUSCULOSKELETAL/RHEUMATOLOGICAL: Denies any joint pain, swelling, or any muscle pain. ENDOCRINE: Denies any polyuria or polydipsia. The rest of the 14-point review of systems is negative. Past Medical History Past Medical History: Hyperlipidemia, Hypertension, Myocardial Infarction ([place]), Osteoarthritis (OA) Additional Past Medical History / Comment(s): chronic back, knee, hip pain, [place] x 4. ABDOMEN WOUND Last Myocardial Infarction Date:: 2012 History of Any Multi-Drug Resistant Organisms: MRSA Date of last positivie culture/infection: 09/08/2015 MDRO Source:: Abdomen Past Surgical History: Section, Heart Catheterization With Stent, Herni a Repair, Tubal Ligation Additional Past Surgical History / Comment(s): .stents 2012, stent 2015, abdominal hernia repair initially done in 2004, revision of the abdominal hernia repair in 10/23/2014, abdominal wall exploration and placement of wound VAC. ABDOMEN SURGERY SURGICAL DEBRIDEMENT X 15 JANUARY 2015 Additional Past Anesthesia/Blood Transfusion Reaction / Comment(s): Hard time coming out of anesthesia. Date of Last Stent Placement:: 2012 Past Psychological History: Anxiety, Bipolar, Depression Smoking Status: Current every day smoker, Current some day smoker Past Alcohol Use History: Rare Additional Past Alcohol Use History / Comment(s): Patient is a smoker one pack per day and is currently cut back to 6 cigarettes per day since she was 9 years of age. She does smoke marijuana on a regular basis which is m [email or web address]. She denies any alcohol use. She lives at home with her parents. 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 She is currently unemployed. There [facility]. Past Drug Use History: IV Drug Use, Marijuana - Past Family History Father Family Medical History: COPD, CVA/TIA, Diabetes Mellitus Mother Family Medical History: COPD Additional Family Medical History / Comment(s): Hiatal hernia, anxiety Medications and Allergies Home Medications Medication Instructions Recorded Confirmed Type Aspirin 81 mg PO DAILY chew 01/11/21 Rx Atorvastatin [Lipitor] 80 mg PO HS 01/11/21 01/11/21 History Metoprolol Succinate (ER) [Toprol 25 mg PO HS 01/11/21 01/11/21 History XL] Allergies Allergy/AdvReac Type Severity Reaction Status Date / Time codeine Allergy Anaphylaxis Verified 01/11/21 07:27 Influenza Virus Vaccines Allergy Anaphylaxis Verified 01/11/21 07:27 Penicillins Allergy Anaphylaxis Verified 01/11/21 07:27 Physical Exam Vitals: Vital Signs Temp Pulse Pulse Resp BP BP Pulse Ox 01/11/21 15:00 98.2 F 58 L 20 115/73 92 L 01/11/21 14:50 58 L 01/11/21 08:00 18 01/11/21 07:00 97.7 F 67 18 130/79 93 L 01/11/21 01:08 98.1 F 81 20 132/84 94 L 01/10/21 23:23 98.0 F 71 20 126/75 95 01/10/21 22:22 97.7 F 70 18 123/74 91 L 01/10/21 20:43 97.9 F 98 26 H 156/87 95 Intake and Output 01/11/21 01/11/21 01/11/21 06:59 14:59 22:59 Other: # Voids 1 Weight 163.293 kg - Constitutional General appearance: Present: average body habitus, cooperative, no acute distress - EENT Eyes: Present: anicteric sclerae, EOMI, PERRLA, normal appearance ENT: Present: hearing grossly normal, normal oropharynx Ears: bilateral: normal - Neck Neck: Present: normal ROM. Absent: lymphadenopathy, rigidity, thyromegaly Carotids: negative: bruit present Thyroid: bilateral: normal size, negative: enlarged, nodule - Respiratory Respiratory: bilateral: CTA, negative: rales, rhonchi, wheezing - Cardiovascular Rhythm: regular Heart sounds: normal: S1, S2 Abnormal Heart Sounds: Absent: systolic murmur, diastolic murmur - Gastrointestinal General gastrointestinal: Present: normal bowel sounds, soft. Absent: distended, organomegaly, tenderness - Genitourinary Genitourinary Comment(s): deferred - Integumentary Integumentary: Present: normal turgor. Absent: jaundiced, rash, ulcer - Neurologic Neurologic: Present: CNII-XII intact. Absent: focal deficits - Musculoskeletal Musculoskeletal: Present: gait normal, strength equal bilaterally - Psychiatric Psychiatric: Present: A&O x's 3, appropriate affect, intact judgment & insight Results CBC & Chem 7: 01/10/21 21:07 01/10/21 21:07 Labs: Abnormal Lab Results - Last 24 Hours (Table) 01/10/21 01/10/21 01/11/21 Range/Units 21:07 21:07 01:26 WBC 14.8 H (3.8-10.6) k/uL Neutrophils # 11.9 H (1.3-7.7) k/uL Sodium 135 L (137-145) mmol/L Glucose 111 H (74-99) mg/dL POC Glucose (mg/dL) 107 H (75-99) mg/dL HDL Cholesterol (40.0-60.0) mg/dL 01/11/21 Range/Units 02:53 WBC (3.8-10.6) k/uL Neutrophils # (1.3-7.7) k/uL Sodium (137-145) mmol/L Glucose (74-99) mg/dL POC Glucose (mg/dL) (75-99) mg/dL HDL Cholesterol 35.0 L (40.0-60.0) mg/dL Thrombosis Risk Factor Assmnt - Choose All That Apply Each Factor Represents 1 point: Acute [place], Age 41-60 years, Obesity (BMI >25), Swollen legs (current), Varicose veins Thrombosis Risk Factor Assessment Total Risk Factor Score: 5 Thrombosis Risk Factor Assessment Level: High Risk Assessment and Plan Assessment: 1. Atypical chest pain/history of coronary artery disease - Patient had previous stenting of left circumflex in 2016 - We will monitor EKG and trend troponin - Consult cardiology for further recommendations 2. Hypertension; metoprolol 25 mg daily 3. Hyperlipidemia; Lipitor 80 mg by mouth daily at bedtime 4. Morbid obesity; counseling done and need for weight reduction 5. Bipolar disorder; currently not on any meds DVT prophylaxis; SCDs CODE STATUS; full code
== END 2021-01-11 16:43 | disposition home or self-care (01) ==
LOC: EC 20:36 → 6NMEDSUR 22:36
PROVIDERS: ADMIT Hospitalist; ATTEND Hospitalist
DX: R07.89 Other chest pain (principal); I25.10 Atherosclerotic heart disease of native coronary artery without angina pectoris; I10 Essential (primary) hypertension; E78.5 Hyperlipidemia, unspecified; E66.01 Morbid (severe) obesity due to excess calories; F31.9 Bipolar disorder, unspecified; Z20.822 Contact with and (suspected) exposure to COVID-19; Z91.14 Patient's other noncompliance with medication regimen; D72.829 Elevated white blood cell count, unspecified; J44.9 Chronic obstructive pulmonary disease, unspecified; M19.90 Unspecified osteoarthritis, unspecified site; I25.2 Old myocardial infarction; G89.29 Other chronic pain; M54.9 Dorsalgia, unspecified; M25.559 Pain in unspecified hip; F41.9 Anxiety disorder, unspecified; F17.210 Nicotine dependence, cigarettes, uncomplicated; Z68.25 Body mass index [BMI] 25.0-25.9, adult; F12.90 Cannabis use, unspecified, uncomplicated; Z79.82 Long term (current) use of aspirin; Z79.899 Other long term (current) drug therapy; Z88.5 Allergy status to narcotic agent; Z88.0 Allergy status to penicillin; Z88.7 Allergy status to serum and vaccine; Z16.24 Resistance to multiple antibiotics; Z98.51 Tubal ligation status; Z56.0 Unemployment, unspecified; Z98.890 Other specified postprocedural states; Z98.891 History of uterine scar from previous surgery; Z87.19 Personal history of other diseases of the digestive system; Z86.59 Personal history of other mental and behavioral disorders; Z95.5 Presence of coronary angioplasty implant and graft; Z82.5 Family history of asthma and other chronic lower respiratory diseases; Z83.3 Family history of diabetes mellitus
CPT/HCPCS: 96376; 96374; 96375; 99285; 36415; 93005; 85379; 80061; 80053; 83690; 83735; 84484 ×2; 85025; 85610; 85730; 87635; 71046; G0378 ×2; J2060 ×2; J1170 ×2

== ENCOUNTER 2021-02-12 05:47 | Day surgery (SDC) | payer MEDICARE, OTHER ==
[2021-02-09 16:20] VITALS: BMI 59.5
[2021-02-12] MEDS ORDERED: NITROGLYCERIN SL TABS 0.4 MG TAB SUBLINGUAL PRN (05:53)
[2021-02-12] MEDS ORDERED: ASPIRIN 325 MG TAB PO STA (05:53)
[2021-02-12] MEDS ORDERED: SODIUM CHLORIDE 0.9% 1,000 ML in EMPTY BAG 1 BAG IV ONE (05:53)
[2021-02-12] MEDS ORDERED: ATORVASTATIN 80 MG TAB PO STA (05:53)
[2021-02-12] MEDS ORDERED: ALPRAZolam 0.25 MG TAB PO PRN (05:53)
[2021-02-12] MEDS ORDERED: ALPRAZolam 0.5 MG TAB PO PRN (05:53)
[2021-02-12 06:39] VITALS: TEMP 98.4
[2021-02-12 06:41] LABS: Basophils # (A) 0.1 k/uL (0-0.2); Basophils % (A) 1 %; Eosinophils # (A) 0.2 k/uL (0-0.7); Eosinophils % (A) 2 %; HCT 48.3 % (34.0-46.0); HGB 15.6 gm/dL (11.4-16.0); Lymphocytes # (A) 1.8 k/uL (1.0-4.8); Lymphocytes % (A) 16 %; MCH 28.8 pg (25.0-35.0); MCHC 32.4 g/dL (31.0-37.0); Mean Platelet Volume 7.2; Monocytes # (A) 0.6 k/uL (0-1.0); Monocytes % (A) 5 %; Neutrophils # (A) 8.6 k/uL (1.3-7.7); Neutrophils % (A) 75 %; Platelet Count 300 k/uL (150-450); RBC 5.42 m/uL (3.80-5.40); RDW 14.3 % (11.5-15.5); WBC 11.5 k/uL (3.8-10.6)
[2021-02-12] MEDS ORDERED: HEPARIN SODIUM,PORCINE 2,500 UNIT in SODIUM CHLORIDE 0.9% 250 ML IRRIGATION PRN (07:00)
[2021-02-12] MEDS ORDERED: HEPARIN SODIUM,PORCINE 10,000 UNIT in SODIUM CHLORIDE 0.9% 1,000 ML IRRIGATION PRN (07:00)
[2021-02-12 07:13] LABS: Potassium 4.8 mmol/L (3.5-5.1)
[2021-02-12] MEDS ORDERED: MIDAZOLAM 2 MG/2 ML VIAL IV ONE ×2 (07:50→07:58)
[2021-02-12] MEDS ORDERED: LIDOCAINE 1% INJ 10MG/ML (20 ML MDV) SQ ONE ×2 (07:51→08:09)
[2021-02-12] MEDS ORDERED: IOPAMIDOL-370 125ML BTL INJ ONE (08:10)
[2021-02-12] MEDS ORDERED: fentaNYL (PF) 50 MCG/ML 2 ML AMP IV ONE (08:12)
[2021-02-12] MEDS ORDERED: RX INFO: IV CONTRAST WAS GIVEN 1 EACH MISC MISCELLANE PRN (08:13)
[2021-02-12] MEDS ORDERED: SODIUM CHLORIDE 0.9% 1,000 ML IV SCH (08:15)
[2021-02-12] MEDS ORDERED: HYDROmorphone 1 MG/ML 1 ML SYRINGE ONE (09:04)
[2021-02-12] MEDS ORDERED: HYDROmorphone 1 MG/ML 1 ML SYRINGE IVP STA (09:05)
--- NOTE | 2021-02-12 09:16 | CC ---
CARDIAC CATHETERIZATION REPORT DATE OF SERVICE: 02/12/2021 PERFORMING PHYSICIAN: Micheal Melgoza MD. PROCEDURE PERFORMED: 1. Selective right and left coronary angiogram. 2. Left heart catheterization. INDICATION: Chest discomfort concerning for angina in this 50-year-old female patient who unfortunately continues to smoke. APPROACH: Right common femoral artery. COMPLICATION: None. LEVEL OF SEDATION: Moderate with sedation length of 16 minutes. PROCEDURE DESCRIPTION: After obtaining informed consent, the patient was brought to the cardiac equipment operator/laborer. The right common femoral artery was cannulated using micropuncture technique and a micropuncture wire passed easily. Then I placed a 6-Eritrean sheath in the right common femoral artery. I did selective right and left coronary angiogram performed using JR4 and JL4 catheters. Left heart catheterization was performed using the JR4 catheter which crossed the aortic valve then I did pullback across the valve. The procedure was completed without any complication. SELECTIVE CORONARY ANGIOGRAM: 1. The RCA is a large caliber vessel and is a dominant vessel. The RCA is angiographically normal. Distally, it bifurcates into PDA and PLV branches and both appeared to be angiographically normal. 2. The left main is angiographically normal. It bifurcates into LCX and LAD. 3. The LCX is a moderate caliber vessel. It is a nondominant vessel. The LCX is chronically occluded by the ostium from the left main. It fills by collateral very faintly. 4. The LAD is a large caliber vessel. The LAD is angiographically normal. The LAD gives branches into the first and second diagonal branches and both appeared to be angiographically normal. CONCLUSION: 1. 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 The chronic total occlusion is in-stent occlusion. 2. Normal LVEDP. POSTPROCEDURE MANAGEMENT: 1. Given the above anatomy, with the occlusion from the bifurcation from the left main, I would advise a conservative medical approach and maximize medical treatment at this point. 2. If the patient continues to be symptomatic in spite of that, we will perform a PCI of the left circumflex. MMODL / IJN: [id number] /
--- NOTE | 2021-02-12 09:21 | LTR ---
02/12/2021 RE: Mirela Ma Dear Dr. Moore. Ms. Mirela Ma underwent today heart catheterization and that revealed chronic total occlusion of the left circumflex coronary artery. I advised maximized medical treatment and follow up with the patient. I want to thank you for allowing me to participate in her care and please do not hesitate to call if you have any questions or concerns. Sincerely, MD GILBERTO Power / KATI: [id number] /
[2021-02-12 10:26] VITALS: BP 149/70; PULSE 54; RESP 16
== END 2021-02-12 12:37 | disposition home or self-care (01) ==
LOC: CATHCVL 05:47
PROVIDERS: ATTEND Internal Medicine Interventional Cardiology
DX: I25.110 Atherosclerotic heart disease of native coronary artery with unstable angina pectoris (principal); I25.82 Chronic total occlusion of coronary artery; I10 Essential (primary) hypertension; E78.00 Pure hypercholesterolemia, unspecified; Z20.822 Contact with and (suspected) exposure to COVID-19
CPT/HCPCS: 93458; 80048; 85025; 81025; 87635; C1760; C1894 ×2; C1769 ×2; J2250; J2001; J3010; J1170; Q9967

== ENCOUNTER 2021-05-15 15:11 | Emergency (ER) | payer MEDICARE, OTHER ==
--- NOTE | 2021-05-15 15:39 | ED ---
General Adult HPI - General Chief complaint: Psychiatric Symptoms Stated complaint: Mental Health Time Seen by Provider: 05/15/21 15:22 Source: patient, police, RN notes reviewed Mode of arrival: ambulatory Limitations: no limitations - History of Present Illness Initial comments: Patient is a pleasant 50-year-old female presenting to the emergency Department with complaints of depression. Patient states symptoms worsen especially today. Patient is having palms with her sister who tells her she has not been enough money for rent. Patient feels depressed and suicidal. Patient had thoughts of shooting herself with a gun. Patient states police officers remove the gun from her. No homicidal thoughts. No hallucinations. Patient did take an extra Xanax today because of her anxiety. No other ingestion. No new physical complaints. - Related Data Home Medications Medication Instructions Recorded Confirmed Atorvastatin [Lipitor] 80 mg PO DAILY 01/11/21 05/15/21 Metoprolol Succinate (ER) [Toprol 25 mg PO DAILY 01/11/21 05/15/21 XL] Previous Rx's Medication Instructions Recorded Aspirin 81 mg PO DAILY chew 01/11/21 Allergies Allergy/AdvReac Type Severity Reaction Status Date / Time codeine Allergy Anaphylaxis Verified 05/15/21 16:36 Influenza Virus Vaccines Allergy Anaphylaxis Verified 05/15/21 16:36 Penicillins Allergy Anaphylaxis Verified 05/15/21 16:36 Review of Systems ROS Statement: Those systems with pertinent positive or pertinent negative responses have been documented in the HPI. ROS Other: All systems not noted in ROS Statement are negative. Constitutional: Denies: fever Eyes: Denies: eye pain ENT: Denies: ear pain Respiratory: Denies: cough, dyspnea Cardiovascular: Denies: palpitations Endocrine: Denies: fatigue Gastrointestinal: Denies: abdominal pain Genitourinary: Denies: dysuria Musculoskeletal: Denies: back pain Skin: Denies: rash Neurological: Denies: weakness Psychiatric: Reports: anxiety, depression, suicidal thoughts Past Medical History Past Medical History: Chest Pain / Angina, Hyperlipidemia, Hypertension, Myocardial Infarction (DC), Osteoarthritis (OA) Additional Past Medical History / Comment(s): chronic back, knee, hip pain, DC x 4. hx. ABDOMEN WOUND 2016, recent hospitalization for chest pain Last Myocardial Infarction Date:: 2012 History of Any Multi-Drug Resistant Organisms: MRSA Date of last positivie culture/infection: 09/08/2015 MDRO Source:: Abdomen Past Surgical History: Section, Heart Catheterization With Stent, Hernia Repair, Tubal Ligation Additional Past Surgical History / Comment(s): stents 2012, stent 2015, abdominal hernia repair initially done in 2003, revision of the abdominal hernia repair in 10/23/2014, abdominal wall exploration and placement of wound VAC. ABDOMEN SURGERY SURGICAL DEBRIDEMENT X 15 JANUARY 2015 Past Anesthesia/Blood Transfusion Reactions: Previous Problems w/ Anesthesia Additional Past Anesthesia/Blood Transfusion Reaction / Comment(s): Hard time coming out of anesthesia. Date of Last Stent Placement:: 2015 Past Psychological History: Anxiety, Bipolar, Depression Smoking Status: Current every day smoker Past Alcohol Use History: Occasional Past Drug Use History: Marijuana - Past Family History Father Family Medical History: COPD, CVA/TIA, Diabetes Mellitus Mother Family Medical History: COPD Additional Family Medical History / Comment(s): Hiatal hernia, anxiety General Exam Limitations: no limitations General appearance: alert, anxious Head exam: Present: normocephalic Eye exam: Present: normal appearance Neck exam: Present: normal inspection Respiratory exam: Present: normal lung sounds bilaterally Cardiovascular Exam: Present: regular rate, normal rhythm GI/Abdominal exam: Present: soft. Absent: tenderness Extremities exam: Present: normal inspection Neurological exam: Present: alert Psychiatric exam: Present: depressed Skin exam: Present: normal color Course Vital Signs 05/15/21 05/15/21 15:13 16:16 Temperature 98.4 F Pulse Rate 98 Respiratory 18 18 Rate Blood Pressure 157/103 O2 Sat by Pulse 98 Oximetry Medical Decision Making - Medical Decision Making Patient seen by mental health services with plan for psychiatric transfer. Positive clinical certificate completed. Disposition Clinical Impression: Depression, Suicidal ideation Disposition: TRANSFER TO PSYCH HOSP/UNIT Is patient prescribed a controlled substance at d/c from ED?: No Referrals: Kwan Moore MD [Primary Care Provider] - 1-2 days Decision Time: 17:00
[2021-05-15] MEDS ORDERED: LORazepam 1 MG TAB PO STA (17:50)
[2021-05-15 18:31] LABS: Amphetamine Screen,Urine Not Detected (NotDetected); Barbiturate Screen,Urine Not Detected (NotDetected); Benzodiazepines Screen,Urine Detected (NotDetected); Cocaine Screen,Urine Not Detected (NotDetected); Methadone Screen, Urine Not Detected (NotDetected); Opiate Screen,Urine Not Detected (NotDetected); Oxycodone Screen, Urine Not Detected (NotDetected); Phencyclidine Screen,Urine Not Detected (NotDetected); Tricyclic Antidepressant,Urine Not Detected (NotDetected); Urn Cannabinoid Scrn Detected (NotDetected)
[2021-05-15 20:35] LABS: Appearance,Urine Cloudy (Clear); Bacteria,Urine Many /hpf; Bilirubin,Urine Negative (Negative); Blood,Urine Negative (Negative); Color,Urine Yellow; Glucose,Urine (UA) Negative (Negative); Ketones,Urine Trace (Negative); Leukocyte Esterase,Urine Large (Negative); Mucus,Urine Occasional /hpf; Nitrite,Urine Positive (Negative); PH, Urine 5.5 (5.0-8.0); Protein,Urine Trace (Negative); RBC,Urine 4 /hpf (0-5); Specific Gravity,Urine 1.031 (1.001-1.035); Squamous Epithelial Cell,Urine 2 /hpf (0-4); Urobilinogen,Urine <2.0 mg/dL (<2.0); WBC,Urine 106 /hpf (0-5)
[2021-05-15 21:00] LABS: Basophils # (A) 0.1 k/uL (0-0.2); Basophils % (A) 1 %; Eosinophils # (A) 0.3 k/uL (0-0.7); Eosinophils % (A) 3 %; HCT 43.4 % (34.0-46.0); HGB 14.4 gm/dL (11.4-16.0); Lymphocytes % (A) 21 %; MCHC 33.1 g/dL (31.0-37.0); MCV 90.5 fL (80.0-100.0); Mean Platelet Volume 7.3; Monocytes # (A) 0.3 k/uL (0-1.0); Monocytes % (A) 3 %; Neutrophils # (A) 6.6 k/uL (1.3-7.7); Neutrophils % (A) 70 %; Platelet Count 332 k/uL (150-450); RBC 4.79 m/uL (3.80-5.40); RDW 14.9 % (11.5-15.5); WBC 9.4 k/uL (3.8-10.6)
[2021-05-15] MEDS ORDERED: HALOPERIDOL LACTATE 5 MG/ML 1 ML VIAL IM STA (23:46)
[2021-05-16] MEDS ORDERED: ZIPRASIDONE 20 MG VIAL IM STA (00:15)
[2021-05-16] MEDS ORDERED: ACETAMINOPHEN TAB 325 MG TAB PO PRN (08:06)
[2021-05-16] MEDS: METOPROLOL SUCCINATE (ER) 25 MG TAB.ER.24H PO SCH (11:42)
[2021-05-16] MEDS: ATORVASTATIN 80 MG TAB PO SCH (13:05)
[2021-05-16] MEDS: ASPIRIN 81 MG PO SCH (13:05)
[2021-05-16] MEDS ORDERED: ACETAMINOPHEN TAB 325 MG TAB PO STA (19:34)
[2021-05-17 07:55] LABS: ALT 23 U/L (4-34); AST 19 U/L (14-36); African American GFR (CKD) >90 (>60 ml/min/1.73 sqM); Albumin 3.6 g/dL (3.5-5.0); Alkaline Phosphatase 87 U/L (38-126); Anion Gap 7 mmol/L; Blood Urea Nitrogen 11 mg/dL (7-17); Calcium 8.9 mg/dL (8.4-10.2); Carbon Dioxide 26 mmol/L (22-30); Chloride 105 mmol/L (98-107); Glucose 119 mg/dL (74-99); Non-African American GFR(CKD) >90 (>60 ml/min/1.73 sqM); Potassium 4.4 mmol/L (3.5-5.1); Sodium 138 mmol/L (137-145); Total Bilirubin 0.4 mg/dL (0.2-1.3); Total Protein 6.9 g/dL (6.3-8.2)
[2021-05-17] MEDS ORDERED: ACETAMINOPHEN TAB 325 MG TAB PO STA (12:09)
[2021-05-17] MEDS: ATORVASTATIN 80 MG TAB PO SCH (12:15)
[2021-05-17] MEDS: METOPROLOL SUCCINATE (ER) 25 MG TAB.ER.24H PO SCH (12:15)
[2021-05-17] MEDS: ASPIRIN 81 MG PO SCH (12:15)
[2021-05-17] MEDS ORDERED: HYDROcodone/APAP 5-325MG 1 EACH TAB PO STA (20:20)
[2021-05-18 04:10] VITALS: RESP 18
[2021-05-18 07:56] VITALS: BP 135/82; PULSE 71; TEMP 97.8
[2021-05-18] MEDS ORDERED: ACETAMINOPHEN TAB 325 MG TAB PO STA (08:50)
[2021-05-18] MEDS ORDERED: METOPROLOL SUCCINATE (ER) 25 MG TAB.ER.24H PO SCH (09:00)
[2021-05-18] MEDS ORDERED: ASPIRIN 81 MG PO SCH (09:00)
[2021-05-18] MEDS ORDERED: ATORVASTATIN 80 MG TAB PO SCH (09:00)
--- NOTE | 2021-05-18 14:51 | P.CN ---
Psychiatric Consult - . Consult date: 05/18/21 Consult:: 05/18/21 14:41 IDENTIFYING DATA: This patient is a 50-year-old female currently lives with her mother in a house has one son collects Social Security and is on food stamps. REASON FOR REFERRAL: Psychiatry was consulted for depression HISTORY OF PRESENT ILLNESS: The patient presented to the hospital and evaluated in the ER for depression. Patient came on May 15. She was endorsing at the time problems with her sister and not enough money for rent. Patient apparently had a gun in her hand and was threatening to shoot herself. Police apparently had removed the guns from the house. Patient was brought into the ER for evaluation and was certified by the ER doctor. Patient's UDS is positive for methamphetamine and benzodiazepines and THC. Patient was seen today for reevaluation over the weekend as patient was reportedly doing better. Patient nurse claims that patient has been more cooperative and not endorsing any suicidal thoughts. Patient states that she was feeling overwhelmed and angry at her sister over money issues. She claims that "she drove me to the breaking point" and spoke about taking a gun and was threatening to harm herself with it. She states that she wasn't actually going to do it and that the bag valver pulled it out of her hand and took it away from her. She states there are no other guns in the house. She states that since then she has regretted it and claims that she wants to use better coping skills When she gets upset. She states that she is not feeling depressed at all today. She claims that she is not endorsing any anxiety. She states that she spoke to her mom over the weekend and talked about how they can pay for different bills and how she can be more supportive. She states that her sleep is fair and appetite is fair . At this time patient denies any suicidal or homical ideations, intent or plan. Patient denies any auditory, visual hallucinations and denies any paranoia or delusions. Patients admits to using cigarettes occasional alcohol and smokes marijuana every other day. She denies any methamphetamine use. PAST PSYCHIATRIC HISTORY: Patient has a a history of anxiety and depression. Patient apparently used to have access to Xanax however is on no other psychiatric meds. She states that she was admitted to [facility] in 2011 for an overdose. Patient denies any psychiatric outpatient follow-up. PAST MEDICAL HISTORY: Please refer to ER note.. ALLERGIES: as per EMR. CHEMICAL DEPENDENCY HISTORY: as per HPI. FAMILY PSYCHIATRIC/SUBSTANCE USE HISTORY: denies SOCIAL HISTORY: Patient was born and raised in [place]. She states that she completed up to the 10th grade. 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 She is currently on Social Security and collecting food stamps. She went to care home for 11 days in the past for drug related charges. She has 1 son. She lives in a house with her mother.. MENTAL STATUS EXAM: General Appearance: Patient appears to be obese, stated age is alert, pleasant, and cooperative. Patient appears to have improved hygiene and grooming wearing hospital gown with fair eye contact. Behavior: Patient is calmly lying in bed without any agitated behavior. Cooperative Speech: Patient's speech is fluent and nonpressured. Mood/Affect: Patient reports their mood is "ok today ", affect is congruent Suicidality/Homicidality: Patient denies having any suicidal or homicidal ideation intent or plan. Perceptions: Patient denies any visual hallucinations and denies any auditory hallucinations Though content/process: There is no evidence of any delusional thought content and thought process is linear and goal-directed. Memory and concentration: AOX3, grossly intact for the purposes of this session. Can spell "WORLD" backwards Judgment and insight: Improving IMPRESSIONS: Adjustment disorder History of depression and anxiety Cannabis use disorder mild Nicotine dependence PLAN: -At this time patient DOES NOT meet criteria for inpatient psychiatric admission. -Would recommend the following medication changes/additions: Sizer Hand reviewed medication options with patient however patient claims that she will be following up with an outpatient psychrist to be started on medications. -Sizer Hand completed a negative certificate. -Sizer Hand spoke with patient's sister Cristina over the phone at [phone] who claims that patient is allowed back to the mother's house and also that the bag valver have taken away all the guns and weapons from the house and that the environment is safe. She also claims that she will be helping patient get enrolled in mental health treatment and find a psychiatrist. -Nurse will provide patient with outpatient mental health/psychiatry resources for appropriate follow up upon discharge -Sizer Hand spoke with patient about substance abuse and the harmful effects on medical and mental health, patient verbally understood and agreed. -Please provide patient substance use treatment resources including AA/NA meetings in the community. -Communicated plan to patient's nurse -Psychiatry will sign off at this time -Please contact with any questions.
== END 2021-05-18 14:33 ==
LOC: EC 15:11
DX: F32.9 Major depressive disorder, single episode, unspecified (principal); R45.851 Suicidal ideations; I10 Essential (primary) hypertension; I25.2 Old myocardial infarction; E78.5 Hyperlipidemia, unspecified; M19.90 Unspecified osteoarthritis, unspecified site; F41.9 Anxiety disorder, unspecified; F12.90 Cannabis use, unspecified, uncomplicated; F17.200 Nicotine dependence, unspecified, uncomplicated; Z79.82 Long term (current) use of aspirin; Z79.899 Other long term (current) drug therapy; Z83.3 Family history of diabetes mellitus; Z88.0 Allergy status to penicillin
CPT/HCPCS: 96372 ×2; 99285 ×2; 82075; 36415 ×2; 85025; 81001; 80306; 87635; J1630

== ENCOUNTER 2023-10-21 16:26 | Inpatient (IN) | payer MEDICARE, OTHER ==
[2023-10-21 17:15] LABS: Basophils % (A) 0 %; Eosinophils # (A) 0.1 k/uL (0-0.7); Eosinophils % (A) 1 %; HCT 42.1 % (34.0-46.0); HGB 13.7 gm/dL (11.4-16.0); Hypochromasia Slight; Lymphocytes # (A) 1.2 k/uL (1.0-4.8); Lymphocytes % (A) 14 %; MCH 28.9 pg (25.0-35.0); MCHC 32.4 g/dL (31.0-37.0); Mean Platelet Volume 7.7; Monocytes # (A) 0.4 k/uL (0-1.0); Monocytes % (A) 5 %; Neutrophils % (A) 79 %; Platelet Count 207 k/uL (150-450); RBC 4.73 m/uL (3.80-5.40); RDW 15.7 % (11.5-15.5); WBC 8.9 k/uL (3.8-10.6)
[2023-10-21 17:30] LABS: ALT 18 U/L (4-34); AST 20 U/L (14-36); African American GFR (CKD) >90 (>60 ml/min/1.73 sqM); Albumin 3.6 g/dL (3.5-5.0); Alkaline Phosphatase 102 U/L (38-126); Anion Gap 5 mmol/L; Blood Urea Nitrogen 14 mg/dL (7-17); Calcium 8.4 mg/dL (8.4-10.2); Carbon Dioxide 29 mmol/L (22-30); Chloride 105 mmol/L (98-107); Glucose 102 mg/dL (74-99); Non-African American GFR(CKD) >90 (>60 ml/min/1.73 sqM); Potassium 4.2 mmol/L (3.5-5.1); Sodium 139 mmol/L (137-145); Total Bilirubin 0.9 mg/dL (0.2-1.3); Total Protein 6.6 g/dL (6.3-8.2)
[2023-10-21 17:31] LABS: Partial Thromboplastin Time 23.1 sec (22.0-30.0); Prothrombin Time 11.1 sec (10.0-12.5)
[2023-10-21 17:39] LABS: NT-Pro-B-Type Natriuretic Pept 924 pg/mL
--- NOTE | 2023-10-21 18:06 | XR ---
EXAMINATION TYPE: XR chest 2V DATE OF EXAM: 10/21/2023 COMPARISON: 09/17/2022 HISTORY: 53 year-old female shortness of breath, difficulty breathing TECHNIQUE: PA and lateral views FINDINGS: Heart borderline in size. Diffuse interstitial density without consolidation. Also trace effusion on the lateral view. IMPRESSION: Borderline heart size and diffuse interstitial density. Possible trace effusion on the lateral view. Consider mild CHF with pulmonary vascular congestion.
--- NOTE | 2023-10-21 18:13 | US ---
EXAMINATION TYPE: US venous doppler duplex LE RT DATE OF EXAM: 10/21/2023 5:08 PM COMPARISON: NONE CLINICAL INDICATION: Female, 53 years old with history of leg swelling; RT lower leg swelling and red ness x 6 months SIDE PERFORMED: Right TECHNIQUE: The lower extremity deep venous system is examined utilizing real time linear array sonog anh with graded compression, doppler sonography and color-flow sonography. VESSELS IMAGED: Common Femoral Vein Deep Femoral Vein Greater Saphenous Vein * Femoral Vein Popliteal Vein Small Saphenous Vein * Proximal Calf Veins (* superficial vessels) Right Leg: Negative for DVT IMPRESSION: No evidence for DVT within the right lower extremity imaged from the groin to the upper calf.
[2023-10-21] MEDS: FUROSEMIDE 10 MG/ML 4 ML VIAL IV STA (19:51)
[2023-10-21] MEDS ORDERED: NALOXONE 0.4 MG/ML 1 ML VIAL IV PRN (20:12)
--- NOTE | 2023-10-21 20:12 | ED ---
SOB HPI - General Chief Complaint: Shortness of Breath Stated Complaint: Heart issues/SOB Source: patient Mode of arrival: ambulatory Limitations: no limitations - History of Present Illness Initial Comments: 53-year-old female with past medical history of COPD not on home O2, congestive heart failure, morbid obesity who presents to the emergency department reporting shortness of breath. States that she has been short of breath for several months however it has gotten progressively worse. She does report to swelling in her bilateral lower extremities with the swelling being worse than the right. Patient has progressed to having upper extremity swelling. Admits that she has gained 100 pounds. She is more short of breath with laying flat. Admits to a history of congestive heart failure for which she was prescribed Lasix but does not take it. She denies any chest pain. Was seen in her primary care office this morning and was instructed to come to the emergency department for evaluation - Related Data Home Medications Medication Instructions Recorded Confirmed Atorvastatin [Lipitor] 80 mg PO DAILY 01/11/21 10/21/23 Metoprolol Succinate (ER) [Toprol 25 mg PO DAILY 01/11/21 10/21/23 XL] Albuterol Inhaler [Ventolin Hfa 2 puff INHALATION RT-QID PRN 10/21/23 10/21/23 Inhaler] Albuterol Nebulized [Ventolin 2.5 mg INHALATION RT-QID 10/21/23 10/21/23 Nebulized] Previous Rx's Medication Instructions Recorded Clopidogrel [Plavix] 75 mg PO DAILY #30 tab 09/19/22 Allergies Allergy/AdvReac Type Severity Reaction Status Date / Time codeine Allergy Anaphylaxis Verified 10/21/23 20:10 Influenza Virus Vaccines Allergy Anaphylaxis Verified 10/21/23 20:10 Penicillins Allergy Anaphylaxis Verified 10/21/23 20:10 Review of Systems ROS Statement: Those systems with pertinent positive or pertinent negative responses have been documented in the HPI. ROS Other: All systems not noted in ROS Statement are negative. Past Medical History Past Medical History: Chest Pain / Angina, Heart Failure, COPD, CVA/TIA, Hearing Disorder / Deafness, Hyperlipidemia, Hypertension, Myocardial Infarction (NE), Osteoarthritis (OA), Skin Disorder Additional Past Medical History / Comment(s): See Dr Melgoza's H&P. SOB with activity, has O2 that she uses as needed, but states it was not prescibed to her, it was her Dad's. Chronic back, knee and hip pain. Hx NE X4. Varicose veins. Acne. Last Myocardial Infarction Date:: 2012 History of Any Multi-Drug Resistant Organisms: MRSA Date of last positivie culture/infection: 09/08/2015 MDRO Source:: Abdomen Past Surgical History: Section, Heart Catheterization With Stent, Hernia Repair, Tubal Ligation Additional Past Surgical History / Comment(s): Cardiac stents 2012 and 2015, abdominal hernia repair initially done in 2003, with revision 10/23/2014, abdominal wall exploration and placement of wound vac, abdominal wound surgical debridement X3 January 2015. Past Anesthesia/Blood Transfusion Reactions: Previous Problems w/ Anesthesia, Motion Sickness Additional Past Anesthesia/Blood Transfusion Reaction / Comment(s): Very hard time coming out of anesthesia. Dad and Mom have hard time up waking up. Date of Last Stent Placement:: 2015 Past Psychological History: Anxiety, Bipolar, Depression Smoking Status: Current every day smoker Past Alcohol Use History: Occasional Past Drug Use History: Marijuana - Past Family History Father Family Medical History: COPD, CVA/TIA, Diabetes Mellitus, Deep Vein Thrombosis (DVT) Mother Family Medical History: COPD Additional Family Medical History / Comment(s): Hiatal hernia, anxiety. Sister(s) Family Medical History: Cancer Additional Family Medical History / Comment(s): Lung cancer. General Exam Limitations: no limitations General appearance: obese Head exam: Present: atraumatic, normocephalic, normal inspection Eye exam: Present: normal appearance, PERRL, EOMI. Absent: scleral icterus, conjunctival injection, periorbital swelling ENT exam: Present: normal exam, mucous membranes moist Neck exam: Present: normal inspection. Absent: tenderness, meningismus, lymphadenopathy Respiratory exam: Present: wheezes, accessory muscle use, decreased breath sounds. Absent: respiratory distress, rales, rhonchi, stridor Cardiovascular Exam: Present: regular rate, normal rhythm, normal heart sounds. Absent: systolic murmur, diastolic murmur, rubs, gallop, clicks GI/Abdominal exam: Present: soft, normal bowel sounds. Absent: distended, tenderness, guarding, rebound, rigid Extremities exam: Present: full ROM, normal capillary refill, pedal edema. Absent: tenderness, joint swelling, calf tenderness Back exam: Present: normal inspection Neurological exam: Present: alert, oriented X3, CN II-XII intact Psychiatric exam: Present: normal affect, normal mood Skin exam: Present: warm, dry, intact, normal color. Absent: rash Course Vital Signs 10/21/23 10/21/23 10/21/23 16:32 21:16 21:27 Temperature 98.5 F Pulse Rate 72 84 80 Respiratory 28 H Rate Blood Pressure 139/69 O2 Sat by Pulse 90 L Oximetry 10/21/23 10/21/23 10/21/23 22:52 23:20 23:53 Temperature Pulse Rate 66 66 Respiratory 18 Rate Blood Pressure 151/79 O2 Sat by Pulse 90 L 92 L Oximetry 10/22/23 10/22/23 00:02 00:35 Temperature Pulse Rate 68 85 Respiratory 16 Rate Blood Pressure 152/83 O2 Sat by Pulse 92 L Oximetry Medical Decision Making - Medical Decision Making Was pt. sent in by a medical professional or institution (, PA, COLOR DEVELOPER, urgent care, hospital, or detention...) When possible be specific @ -No Did you speak to anyone other than the patient for history (EMS, parent, family, police, friend...)? What history was obtained from this source @ -Spoke with patient's family Did you review nursing and triage notes (agree or disagree)? Why? @ -I reviewed and agree with nursing and triage notes Were old charts reviewed (outside hosp., previous admission, EMS record, old EKG, old radiological studies, urgent care reports/EKG's, detention records)? Report findings @ -No old charts were reviewed Differential Diagnosis (chest pain, altered mental status, abdominal pain women, abdominal pain men, vaginal bleeding, weakness, fever, dyspnea, syncope, headache, dizziness, GI bleed, back pain, seizure, CVA, palpatations, mental health, musculoskeletal)? @ -Differential Dyspnea: Coronary syndrome, arrhythmia, tamponade, asthma, COPD, pulmonary embolism, pneumonia, pneumothorax, pulmonary effusion, anaphylaxis, diabetic ketoacidosis, flailed chest, pulmonary contusion, diaphragmatic rupture, anemia, neuromuscular, this is not meant to be an all-inclusive list. EKG interpreted by me (3pts min.). @ -Yes and demonstrates sinus rhythm with a rate of 80. IN interval 147. QRS 98. QTc of 395. No acute ST segment elevations or depressions X-rays interpreted by me (1pt min.). @ -Yes and demonstrates some pulmonary vascular congestion CT interpreted by me (1pt min.). @ -None done U/S interpreted by me (1pt. min.). @ -Yes and demonstrates no DVT What testing was considered but not performed or refused? (CT, X-rays, U/S, labs)? Why? @ -None What meds were considered but not given or refused? Why? @ -None Did you discuss the management of the patient with other professionals (professionals i.e. , PA, COLOR DEVELOPER, lab, RT, psych nurse, social problems specialist, supervisor throwing department, teacher, small business banking officer, patient case manager)? Give summary @ -Yes, spoke with Ross from [facility] Was smoking cessation discussed for >3mins.? @ -No Was critical care preformed (if so, how long)? @ -No Were there social determinants of health that impacted care today? How? (Homelessness, low income, unemployed, alcoholism, drug addiction, transportation, low edu. Level, literacy, decrease access to med. care, custodial, rehab)? @ -No Was there de-escalation of care discussed even if they declined (Discuss DNR or withdrawal of care, Hospice)? DNR status @ -No What co-morbidities impacted this encounter? (DM, HTN, Smoking, COPD, CAD, Cancer, CVA, ARF, Chemo, Hep., AIDS, mental health diagnosis, sleep apnea, morbid obesity)? @ -Morbid obesity, COPD Was patient admitted / discharged? Hospital course, mention meds given and route, prescriptions, significant lab abnormalities, going to OR and other pertinent info. @ -Admitted. Upon arrival patient placed into room 8. Thorough history and physical exam was performed. Patient placed on continuous pulse ox and cardiac monitoring. Laboratory studies are conducted. Chest x-ray was performed. Patient given a dose of Lasix, DuoNeb breathing treatment and steroids. Recommended admission for which she was agreeable. Spoke with Ross from [facility] who will admit the patient Undiagnosed new problem with uncertain prognosis? @ -Yes Drug Therapy requiring intensive monitoring for toxicity (Heparin, Nitro, Insulin, Cardizem)? @ -No Were any procedures done? @ -No Diagnosis/symptom? @ -Acute respiratory insufficiency, acute exacerbation of COPD, CHF exacerbation Acute, or Chronic, or Acute on Chronic? @ -Acute Uncomplicated (without systemic symptoms) or Complicated (systemic symptoms)? @ -Complicated Side effects of treatment? @ -No Exacerbation, Progression, or Severe Exacerbation? @ -No Poses a threat to life or bodily function? How? (Chest pain, USA, NE, pneumonia, PE, COPD, DKA, ARF, appy, cholecystitis, CVA, Diverticulitis, Homicidal, Suicidal, threat to staff... and all critical care pts) @Yes as patient is severely dyspneic - Lab Data Result diagrams: 10/22/23 07:36 10/22/23 07:36 Lab Results 10/21/23 10/21/23 10/21/23 Range/Units 17:02 17:02 17:02 WBC 8.9 (3.8-10.6) k/uL RBC 4.73 (3.80-5.40) m/uL Hgb 13.7 (11.4-16.0) gm/dL Hct 42.1 (34.0-46.0) % MCV 89.0 (80.0-100.0) fL MCH 28.9 (25.0-35.0) pg MCHC 32.4 (31.0-37.0) g/dL RDW 15.7 H (11.5-15.5) % Plt Count 207 (150-450) k/uL MPV 7.7 Neutrophils % 79 % Lymphocytes % 14 % Monocytes % 5 % Eosinophils % 1 % Basophils % 0 % Neutrophils # 7.0 (1.3-7.7) k/uL Lymphocytes # 1.2 (1.0-4.8) k/uL Monocytes # 0.4 (0-1.0) k/uL Eosinophils # 0.1 (0-0.7) k/uL Basophils # 0.0 (0-0.2) k/uL Hypochromasia Slight PT 11.1 (10.0-12.5) sec INR 1.0 (<1.2) APTT 23.1 (22.0-30.0) sec D-Dimer 1.17 H (<0.60) mg/L FEU Sodium 139 (137-145) mmol/L Potassium 4.2 (3.5-5.1) mmol/L Chloride 105 (98-107) mmol/L Carbon Dioxide 29 (22-30) mmol/L Anion Gap 5 mmol/L BUN 14 (7-17) mg/dL Creatinine 0.61 (0.52-1.04) mg/dL Est GFR (CKD-EPI)AfAm >90 (>60 ml/min/1.73 sqM) Est GFR (CKD-EPI)NonAf >90 (>60 ml/min/1.73 sqM) Glucose 102 H (74-99) mg/dL Estimated Ave Glu mg/dL mg/dL Hemoglobin A1c (<=6.0) % Plasma Lactic Acid Valerio (0.7-2.0) mmol/L Calcium 8.4 (8.4-10.2) mg/dL Total Bilirubin 0.9 (0.2-1.3) mg/dL AST 20 (14-36) U/L ALT 18 (4-34) U/L Alkaline Phosphatase 102 (38-126) U/L Troponin I (0.000-0.034) ng/mL NT-Pro-B Natriuret Pep 924 pg/mL Total Protein 6.6 (6.3-8.2) g/dL Albumin 3.6 (3.5-5.0) g/dL TSH 2.750 (0.465-4.680) mIU/L 10/21/23 10/21/23 10/21/23 Range/Units 17:02 17:02 17:02 WBC (3.8-10.6) k/uL RBC (3.80-5.40) m/uL Hgb (11.4-16.0) gm/dL Hct (34.0-46.0) % MCV (80.0-100.0) fL MCH (25.0-35.0) pg MCHC (31.0-37.0) g/dL RDW (11.5-15.5) % Plt Count (150-450) k/uL MPV Neutrophils % % Lymphocytes % % Monocytes % % Eosinophils % % Basophils % % Neutrophils # (1.3-7.7) k/uL Lymphocytes # (1.0-4.8) k/uL Monocytes # (0-1.0) k/uL Eosinophils # (0-0.7) k/uL Basophils # (0-0.2) k/uL Hypochromasia PT (10.0-12.5) sec INR (<1.2) APTT (22.0-30.0) sec D-Dimer (<0.60) mg/L FEU Sodium (137-145) mmol/L Potassium (3.5-5.1) mmol/L Chloride (98-107) mmol/L Carbon Dioxide (22-30) mmol/L Anion Gap mmol/L BUN (7-17) mg/dL Creatinine (0.52-1.04) mg/dL Est GFR (CKD-EPI)AfAm (>60 ml/min/1.73 sqM) Est GFR (CKD-EPI)NonAf (>60 ml/min/1.73 sqM) Glucose (74-99) mg/dL Estimated Ave Glu mg/dL 123 mg/dL Hemoglobin A1c 5.9 (<=6.0) % Plasma Lactic Acid Valerio 1.8 (0.7-2.0) mmol/L Calcium (8.4-10.2) mg/dL Total Bilirubin (0.2-1.3) mg/dL AST (14-36) U/L ALT (4-34) U/L Alkaline Phosphatase (38-126) U/L Troponin I <0.012 (0.000-0.034) ng/mL NT-Pro-B Natriuret Pep pg/mL Total Protein (6.3-8.2) g/dL Albumin (3.5-5.0) g/dL TSH (0.465-4.680) mIU/L Disposition Clinical Impression: COPD exacerbation, CHF exacerbation, Respiratory insufficiency, Lymphedema, Elevated d-dimer Disposition: ADMITTED IP TO THIS [facility] Condition: Stable Is patient prescribed a controlled substance at d/c from ED?: No Time of Disposition: 20:12 Decision to Admit Reason: Admit from EC Decision Date: 10/21/23 Decision Time: 20:12
[2023-10-21] MEDS: methylPREDNISolone SOD SUCCI 125 MG/2 ML VIAL IV STA (21:02)
[2023-10-21] MEDS: IPRATROPIUM-ALBUTEROL 3 ML NEB INHALATION STA (21:16)
[2023-10-21] MEDS: FUROSEMIDE 10 MG/ML 4 ML VIAL IV SCH (23:23)
[2023-10-21] MEDS: methylPREDNISolone SOD SUCCI 40 MG/ML 1 ML VIAL IV SCH (23:24)
[2023-10-21] MEDS: IPRATROPIUM-ALBUTEROL 3 ML NEB INHALATION SCH (23:53)
[2023-10-22] MEDS: CLOPIDOGREL 75 MG TAB PO SCH (08:26)
[2023-10-22] MEDS: ATORVASTATIN 80 MG TAB PO SCH (08:26)
[2023-10-22] MEDS: FAMOTIDINE 20 MG/2 ML VIAL IV SCH (08:26)
[2023-10-22] MEDS: HEPARIN SODIUM,PORCINE 5,000 UNIT/ML 1 ML VIAL SQ SCH (08:26)
[2023-10-22] MEDS: METOPROLOL SUCCINATE (ER) 25 MG TAB.ER.24H PO SCH (08:26)
[2023-10-22 08:37] LABS: Basophils % (A) 0 %; Eosinophils % (A) 0 %; HCT 43.5 % (34.0-46.0); HGB 14.2 gm/dL (11.4-16.0); Hypochromasia Slight; Lymphocytes # (A) 0.4 k/uL (1.0-4.8); Lymphocytes % (A) 6 %; MCH 29.2 pg (25.0-35.0); MCHC 32.7 g/dL (31.0-37.0); MCV 89.3 fL (80.0-100.0); Mean Platelet Volume 8.1; Monocytes # (A) 0.1 k/uL (0-1.0); Monocytes % (A) 2 %; Neutrophils # (A) 6.3 k/uL (1.3-7.7); Neutrophils % (A) 91 %; Platelet Count 208 k/uL (150-450); RBC 4.87 m/uL (3.80-5.40); RDW 15.7 % (11.5-15.5); WBC 6.9 k/uL (3.8-10.6)
[2023-10-22 09:10] LABS: African American GFR (CKD) >90 (>60 ml/min/1.73 sqM); Anion Gap 10 mmol/L; Blood Urea Nitrogen 17 mg/dL (7-17); Calcium 8.8 mg/dL (8.4-10.2); Carbon Dioxide 29 mmol/L (22-30); Chloride 99 mmol/L (98-107); Glucose 144 mg/dL (74-99); Non-African American GFR(CKD) >90 (>60 ml/min/1.73 sqM); Potassium 4.7 mmol/L (3.5-5.1); Sodium 138 mmol/L (137-145)
--- NOTE | 2023-10-22 09:52 | P.HPIM ---
History of Present Illness This is a pleasant 53 years old female with past medical history of Coronary artery disease status post stent , heart Failure, COPD, CVA/TIA, Hearing Disorder / Deafness, Hyperlipidemia, Hypertension,, Osteoarthritis (OA), has O2 that she uses as needed, but states it was not prescibed to her, it was her Dad's. Chronic back, knee and hip, anxiety depression and bipolar Patient presents because of worsening dyspnea over a few days without specification associated with cough and yellow phlegm but no chest pain She denies chills or urine or bowel symptoms. No headache dizziness weakness. She cutting down her smoking down to 3 to 7 cigarettes/day and she was counseled to quit and she agrees but she declines nicotine patch. No alcohol or illicit drugs. Currently she is saturating 90s on 6 L oxygen via nasal cannula. Blood pressure stable. Patient is afebrile. She has unremarkable CBC, INR, BMP, liver enzymes and troponin x 3 are negative less than 0.012. D-dimer is 1.17. proBNP is 924. Chest x-ray showing evidence of congestive heart failure. Right leg ultrasound is negative for deep venous thrombosis Patient was started on IV Lasix 40 mgevery 8 hours with IV Solu-Medrol 40 mg. He was admitted with pulmonary and cardiology consult. Review of Systems Review of systems CONSTITUTIONAL: No fever, no malaise, no fatigue. HEENT: No recent visual problems or hearing problems. Denied any sore throat. CARDIOVASCULAR: No orthopnea, PND, no palpitations, no syncope. PULMONARY: No shortness of breath, no cough, no hemoptysis. GASTROINTESTINAL: No diarrhea, no nausea, no vomiting, no abdominal pain. Normoactive bowel sounds. NEUROLOGICAL: No headaches, no weakness, no numbness. HEMATOLOGICAL: Denies any bleeding or petechiae. GENITOURINARY: Denies any burning micturition, frequency, or urgency. MUSCULOSKELETAL/RHEUMATOLOGICAL: Denies any joint pain, swelling, or any muscle pain. ENDOCRINE: Denies any polyuria or polydipsia. Past Medical History Past Medical History: Chest Pain / Angina, Heart Failure, COPD, CVA/TIA, Hearing Disorder / Deafness, Hyperlipidemia, Hypertension, Myocardial Infarction (ID), Osteoarthritis (OA), Skin Disorder Additional Past Medical History / Comment(s): See Dr Melgoza's H&P. SOB with activity, has O2 that she uses as needed, but states it was not prescibed to her, it was her Dad's. Chronic back, knee and hip pain. Hx ID [id number]. Varicose veins. Acne. Last Myocardial Infarction Date:: 2020 History of Any Multi-Drug Resistant Organisms: MRSA Date of last positivie culture/infection: 09/08/2015 MDRO Source:: Abdomen Past Surgical History: Section, Heart Catheterization With Stent, Hernia Repair, Tubal Ligation Additional Past Surgical History / Comment(s): Cardiac and peripheral stents 2012 and 2015, abdominal hernia repair initially done in 2003, with revision 10/23/2014, abdominal wall exploration and placement of wound vac, abdominal wound surgical debridement X3 January 2015. Past Anesthesia/Blood Transfusion Reactions: Previous Problems w/ Anesthesia, Motion Sickness Additional Past Anesthesia/Blood Transfusion Reaction / Comment(s): Very hard time coming out of anesthesia. Dad and Mom have hard time up waking up. Date of Last Stent Placement:: 2018 Past Psychological History: Anxiety, Bipolar, Depression Smoking Status: Current every day smoker Past Alcohol Use History: Occasional Additional Past Alcohol Use History / Comment(s): Smoker of 1ppd, currently down to 6-10 cigarettes per day, has smoked since age 9. No alcohol in 2 yrs. Past Drug Use History: Marijuana Additional Drug Use History / Comment(s): Occasional medical marijuana. Aware no use 24 hrs prior to procedure. - Past Family History Father Family Medical History: COPD, CVA/TIA, Diabetes Mellitus, Deep Vein Thrombosis (DVT) Mother Family Medical History: COPD Additional Family Medical History / Comment(s): Hiatal hernia, anxiety. Sister(s) Family Medical History: Cancer Additional Family Medical History / Comment(s): Lung cancer. Medications and Allergies Home Medications Medication Instructions Recorded Confirmed Type Atorvastatin [Lipitor] 80 mg PO DAILY 01/11/21 10/21/23 History Metoprolol Succinate (ER) [Toprol 25 mg PO DAILY 01/11/21 10/21/23 History XL] Clopidogrel [Plavix] 75 mg PO DAILY #30 tab 09/19/22 10/21/23 Rx Albuterol Inhaler [Ventolin Hfa 2 puff INHALATION RT-QID PRN 10/21/23 10/21/23 History Inhaler] Albuterol Nebulized [Ventolin 2.5 mg INHALATION RT-QID 10/21/23 10/21/23 History Nebulized] Allergies Allergy/AdvReac Type Severity Reaction Status Date / Time codeine Allergy Anaphylaxis Verified 10/21/23 20:10 Influenza Virus Vaccines Allergy Anaphylaxis Verified 10/21/23 20:10 Penicillins Allergy Anaphylaxis Verified 10/21/23 20:10 Physical Exam Vitals: Vital Signs Temp Pulse Pulse Resp BP BP Pulse Ox 10/22/23 09:08 85 10/22/23 08:58 84 10/22/23 08:00 98.2 F 83 24 150/76 91 L 10/22/23 05:00 98.2 F 91 22 137/75 92 L 10/22/23 04:36 67 10/22/23 04:27 65 10/22/23 01:00 98.1 F 92 28 H 142/72 10/22/23 00:35 85 16 152/83 92 L 10/22/23 00:02 68 10/21/23 23:53 66 10/21/23 23:20 92 L 10/21/23 22:52 66 18 151/79 90 L 10/21/23 21:27 80 10/21/23 21:16 84 10/21/23 16:32 98.5 F 72 28 H 139/69 90 L Intake and Output 10/21/23 10/22/23 10/22/23 22:59 06:59 14:59 Output Total 1999 3200 Balance -1999 -3200 Output: Urine 1999 3200 Other: Voiding Method Bedside Commode External Catheter # Voids 1 Weight 186.88 kg 195 kg -GENERAL: The patient is alert and oriented x3, not in any acute distress. We morbidly obese. HEENT: Pupils are round and equally reacting to light. EOMI. No scleral icterus. No conjunctival pallor. Normocephalic, atraumatic. No pharyngeal erythema. No thyromegaly. CARDIOVASCULAR: S1 and S2 present. No murmurs, rubs, or gallops. -PULMONARY: Chest is clear to auscultation, no wheezing. Faint bilateral basal crackles. Mildly tachypneic ABDOMEN: Soft, nontender, nondistended, normoactive bowel sounds. No palpable organomegaly. MUSCULOSKELETAL: No joint swelling or deformity. -EXTREMITIES: No cyanosis, clubbing,. Bilateral pitting leg edema. NEUROLOGICAL: Gross neurological examination did not reveal any focal deficits. SKIN: No rashes. no petechiae. Results CBC & Chem 7: 10/22/23 07:36 10/22/23 07:36 Labs: Abnormal Lab Results - Last 24 Hours (Table) 10/21/23 10/21/23 10/21/23 Range/Units 17:02 17:02 17:02 RDW 15.7 H (11.5-15.5) % Lymphocytes # (1.0-4.8) k/uL D-Dimer 1.17 H (<0.60) mg/L FEU Glucose 102 H (74-99) mg/dL 10/22/23 10/22/23 Range/Units 07:36 07:36 RDW 15.7 H (11.5-15.5) % Lymphocytes # 0.4 L (1.0-4.8) k/uL D-Dimer (<0.60) mg/L FEU Glucose 144 H (74-99) mg/dL Thrombosis Risk Factor Assmnt - Choose All That Apply Any of the Below Risk Factors Present?: Yes Each Factor Represents 1 point: Abnormal pulmonary function (COPD), Age 41-60 years, Obesity (BMI >25), Swollen legs (current) Other Risk Factors: No Other congenital or acquired thrombophilia - If yes, enter type in comment: No Thrombosis Risk Factor Assessment Total Risk Factor Score: 4 Thrombosis Risk Factor Assessment Level: Moderate Risk Assessment and Plan Assessment: Acute on chronic diastolic CHF with preserved ejection fraction Acute COPD exacerbation Acute on chronic hypoxic respiratory failure Morbid obesity with BMI of 69.4. History of coronary artery disease status post stent Diabetes mellitus Hypertension Hyperlipidemia History of osteoarthritis Plan: Continue with IV Lasix Continue with IV Solu-Medrol Continue with bronchodilator Continue with oxygen as needed. Pulmonary and cardiology consult. Labs and medication were reviewed.. Continue same treatment. Continue with symptomatic treatment. Resume home medication. Monitor lytes and vitals. DVT and GI prophylaxis. Further recommendations depends on the clinical course of the patient DVT prophylaxis: Subcutaneous heparin GI Prophylaxis: Pepcid PT/OT: Pending Prognosis is guarded
[2023-10-22] MEDS: IPRATROPIUM-ALBUTEROL 3 ML NEB INHALATION SCH (12:05)
--- NOTE | 2023-10-22 13:46 | P.CNPUL ---
History of Present Illness Consult date: 10/22/23 Requesting physician: Alexx García Reason for consult: dyspnea, hypoxemia, abnormal CXR/CT Chief complaint: Shortness of breath, cough, swelling History of present illness: This is a pleasant 53-year-old female patient who is morbidly obese and has a history of chronic diastolic congestive heart failure, chronic and ongoing tobacco dependence, oxygen dependent chronic obstructive pulmonary disease, hyperlipidemia, coronary disease with previous stent placement, preserved left ventricular systolic function with ejection fraction 55 to 60%. She presented here to the emergency room yesterday with complaints of increasing shortness of breath and swelling of her lower extremities. She was sent here from her PCP Dr. Christine's office. X-ray reveals borderline cardiomegaly with diffuse in terstitial density. Mild CHF with pulmonary vascular congestion. Doppler of the lower right extremity negative for DVT. White count 6.9. Hemoglobin 14.2. Platelets 208. Sodium 138. Potassium 4.7. Bicarb 29. BUN 17. Creatinine 0.64. Glucose 144. Troponins were negative x 3. proBNP 924. Lactic acid 1.8. She is seen today in consultation on the regular medical floor. She is currently sitting up in a chair. Awake and alert in no acute distress. She is breathing a bit easier today compared to yesterday. She is requiring oxygen at 6 L high flow nasal cannula. She is normally on 2 to 4 L at home. She has been initiated on Lasix 40 mg IVP every 8 hours. Currently in a -3.2 L balance. She is afebrile. Hemodynamically stable Review of Systems REVIEW OF SYSTEMS: CONSTITUTIONAL: Denies any recent significant weight loss or weight gain. EYES: Denies change in vision. EARS, NOSE, MOUTH, THROAT: Denies headaches, denies sore throat. CARDIOVASCULAR: Denies chest pain, palpitations or syncopal episodes. RESPIRATORY: Positive for shortness of breath, cough, congestion no hemoptysis. GASTROINTESTINAL: Denies change in appetite, denies abdominal pain GENITOURINARY: Denies hematuria, denies infections. MUSKULOSKELETAL: Positive for lower extremity swelling. INTEGUMENTARY: Denies rash, denies eczema. NEUROLOGICAL: Denies recent memory loss, no recent seizure activity. PSYCHIATRIC: Denies anxiety, denies depression. HEMATOLOGIC/LYMPHATIC: Denies anemia, denies enlarged lymph nodes. Past Medical History Past Medical History: Chest Pain / Angina, Heart Failure, COPD, CVA/TIA, Hearing Disorder / Deafness, Hyperlipidemia, Hypertension, Myocardial Infarction (OR), Osteoarthritis (OA), Skin Disorder Additional Past Medical History / Comment(s): See Dr Melgoza's H&P. SOB with activity, has O2 that she uses as needed, but states it was not prescibed to her, it was her Dad's. Chronic back, knee and hip pain. Hx OR X6. Varicose veins. Acne. Last Myocardial Infarction Date:: 2020 History of Any Multi-Drug Resistant Organisms: MRSA Date of last positivie culture/infection: 09/08/2015 MDRO Source:: Abdomen Past Surgical History: Section, Heart Catheterization With Stent, Hernia Repair, Tubal Ligation Additional Past Surgical History / Comment(s): Cardiac and peripheral stents 2012 and 2015, abdominal hernia repair initially done in 2003, with revision 10/23/2014, abdominal wall exploration and placement of wound vac, abdominal wound surgical debridement X3 January 2015. Past Anesthesia/Blood Transfusion Reactions: Previous Problems w/ Anesthesia, Motion Sickness Additional Past Anesthesia/Blood Transfusion Reaction / Comment(s): Very hard time coming out of anesthesia. Dad and Mom have hard time up waking up. Date of Last Stent Placement:: 2018 Past Psychological History: Anxiety, Bipolar, Depression Smoking Status: Current every day smoker Past Alcohol Use History: Occasional Additional Past Alcohol Use History / Comment(s): Smoker of 1ppd, currently down to 6-10 cigarettes per day, has smoked since age 9. No alcohol in 2 yrs. Past Drug Use History: Marijuana Additional Drug Use History / Comment(s): Occasional medical marijuana. Aware no use 24 hrs prior to procedure. - Past Family History Father Family Medical History: COPD, CVA/TIA, Diabetes Mellitus, Deep Vein Thrombosis (DVT) Mother Family Medical History: COPD Additional Family Medical History / Comment(s): Hiatal hernia, anxiety. Sister(s) Family Medical History: Cancer Additional Family Medical History / Comment(s): Lung cancer. Medications and Allergies Home Medications Medication Instructions Recorded Confirmed Type Atorvastatin [Lipitor] 80 mg PO DAILY 01/11/21 10/21/23 History Metoprolol Succinate (ER) [Toprol 25 mg PO DAILY 01/11/21 10/21/23 History XL] Clopidogrel [Plavix] 75 mg PO DAILY #30 tab 09/19/22 10/21/23 Rx Albuterol Inhaler [Ventolin Hfa 2 puff INHALATION RT-QID PRN 10/21/23 10/21/23 History Inhaler] Albuterol Nebulized [Ventolin 2.5 mg INHALATION RT-QID 10/21/23 10/21/23 History Nebulized] Allergies Allergy/AdvReac Type Severity Reaction Status Date / Time codeine Allergy Anaphylaxis Verified 10/21/23 20:10 Influenza Virus Vaccines Allergy Anaphylaxis Verified 10/21/23 20:10 Penicillins Allergy Anaphylaxis Verified 10/21/23 20:10 Physical Exam Vitals: Vital Signs Temp Pulse Pulse Resp BP BP Pulse Ox 10/22/23 12:18 82 10/22/23 12:05 82 10/22/23 09:08 85 10/22/23 08:58 84 10/22/23 08:00 98.2 F 83 24 150/76 91 L 10/22/23 05:00 98.2 F 91 22 137/75 92 L 10/22/23 04:36 67 10/22/23 04:27 65 10/22/23 01:00 98.1 F 92 28 H 142/72 10/22/23 00:35 85 16 152/83 92 L 10/22/23 00:02 68 10/21/23 23:53 66 10/21/23 23:20 92 L 10/21/23 22:52 66 18 151/79 90 L 10/21/23 21:27 80 10/21/23 21:16 84 10/21/23 16:32 98.5 F 72 28 H 139/69 90 L Intake and Output 10/21/23 10/22/23 10/22/23 22:59 06:59 14:59 Output Total 1999 3200 1650 Balance -1999 -3200 -1650 Output: Urine 1999 3200 1650 Other: Voiding Method Bedside Commode External Catheter # Voids 1 1 Weight 186.88 kg 195 kg GENERAL EXAM: Alert, morbidly obese, 53-year-old female, on 6 L high flow nasal cannula, fairly comfortable in no apparent distress. HEAD: Normocephalic. EYES: Normal reaction of pupils, equal size. NOSE: Clear with pink turbinates. THROAT: No erythema or exudates. NECK: No masses, no JVD. CHEST: No chest wall deformity. LUNGS: Equal air entry with Eckels in the bilateral bases. CVS: S1 and S2 normal with no audible murmur, regular rhythm. ABDOMEN: Obesity, unable to appreciate organomegaly, normal bowel sounds, no guarding or rigidity. SPINE: No scoliosis or deformity SKIN: No rashes CENTRAL NERVOUS SYSTEM: No focal deficits, tone is normal in all 4 extremities. EXTREMITIES: Changes of chronic venous stasis. There is 1-2+ peripheral edema. No clubbing, no cyanosis. Peripheral pulses are intact. Results - Laboratory Findings CBC and BMP: 10/22/23 07:36 10/22/23 07:36 PT/INR, D-dimer PT 11.1 sec (10.0-12.5) 10/21/23 17:02 INR 1.0 (<1.2) 10/21/23 17:02 D-Dimer 1.17 mg/L FEU (<0.60) H 10/21/23 17:02 Abnormal lab findings: Abnormal Labs 10/21/23 10/21/23 10/21/23 17:02 17:02 17:02 RDW 15.7 H Lymphocytes # D-Dimer 1.17 H Glucose 102 H 10/22/23 10/22/23 07:36 07:36 RDW 15.7 H Lymphocytes # 0.4 L D-Dimer Glucose 144 H - Diagnostic Findings Chest x-ray: image reviewed Assessment and Plan Assessment: Acute on chronic hypoxemic respiratory failure secondary to an acute exacerbation of diastolic congestive heart failure Acute exacerbation of chronic obstructive pulmonary disease Chronic hypoxemic respiratory failure maintained on oxygen at 2 to 4 L at outpatient setting Chronic and ongoing tobacco dependence Morbid obesity with a BMI of 69.4 kg/m Suspect obesity/hypoventilation syndrome. Mainly sleeps up in a chair Coronary disease with previous stent placement Changes of chronic venous stasis of the lower extremity Hyperlipidemia Hypertension History of hearing disorder History of anxiety/depression History of marijuana use Plan: The patient was seen and evaluated Chest x-ray, labs and medications reviewed Continue with IV diuretics, accurate I& O Continue bronchodilators, steroids Heparin for DVT prophylaxis Educated regarding the importance of smoking cessation Educated regarding the importance of weight loss Titrate the FiO2 as tolerated Increase her activity as tolerated We will continue to follow and make further recommendations based on her clinical status I have personally seen and examined the patient, performed the documentation and the assessment and plan as written. Number of minutes spent on the visit: 20.
[2023-10-22] MEDS: methylPREDNISolone SOD SUCCI 125 MG/2 ML VIAL IV SCH (14:51)
[2023-10-22] MEDS: CYCLOBENZAPRINE 10 MG TAB PO STA ×2 (14:56→21:29)
--- NOTE | 2023-10-22 16:28 | CA ---
Transthoracic Echo Report Name: Mirela Ma Age: 53 Gender: F : 1970 Exam Date: 10/22/2023 13:50 Exam Location: [facility] Ht (in): 66 Wt (lb): 429 Ordering Physician: Thomas Serna MD ([id number]) Attending/Referring Phys: Shoes Salesperson Sirisha Camacho RDCS Procedure CPT: Indications: chf Cardiac Hx: Technical Quality: Very technically difficult study Contrast 1: Definity Total Dose (mL): 2 Contrast 2: Total Dose (mL): MEASUREMENTS (Male / Female) Normal Values 2D ECHO RV Internal Dim ED PLAX 4.2 cm LA Systolic Diameter LX 4.5 cm 3.0 - 4.0 / 2.7 - 3.8 cm LV Diastolic Volume MOD BP 67.7 cm??? 67 - 155 / 56 - 104 cm??? LV Systolic Volume MOD BP 27.3 cm??? 22 - 58 / 19 - 49 cm??? LV Ejection Fraction MOD BP 59.7 % >= 55 % LV Cardiac Index MOD BP 912.4 cm???/min???m??? LV Diastolic Volume MOD 4C 62.9 cm??? LV Systolic Volume MOD 4C 21.0 cm??? LV Ejection Fraction MOD 4C 66.6 % LV Cardiac Index MOD 4C 945.1 cm???/min???m??? LV Diastolic Length 4C 8.4 cm LV Systolic Length 4C 5.8 cm LV Diastolic Volume MOD 2C 71.3 cm??? LV Systolic Volume MOD 2C 32.8 cm??? LV Ejection Fraction MOD 2C 54.0 % LV Cardiac Index MOD 2C 868.7 cm???/min???m??? LV Diastolic Length 2C 8.8 cm LV Systolic Length 2C 6.8 cm M-MODE LV Diastolic Diameter MM 6.5 cm 4.2 - 5.9 / 3.9 - 5.3 cm LV Systolic Diameter MM 3.9 cm LV Cardiac Index MM Teich 3292.8 cm???/min???m??? IVS Diastolic Thickness MM 1.0 cm 0.6 - 1.0 / 0.6 - 0.9 cm LVPW Diastolic Thickness MM 1.1 cm 0.6 - 1.0 / 0.6 - 0.9 cm LV Relative Wall Thickness MM 0.3 0.24 - 0.42 / 0.22 - 0.42 LV Mass Index MM 94.1 g/m??? 49 - 115 / 43 - 95 g/m??? Aortic Root Diameter MM 3.1 cm DOPPLER AV Peak Velocity 171.3 cm/s AV Peak Gradient 11.7 mmHg MV Area PHT 2.0 cm??? Mitral E Point Velocity 89.2 cm/s Mitral A Point Velocity 82.0 cm/s Mitral E to A Ratio 1.1 MV Deceleration Time 385.8 ms TR Peak Velocity 353.1 cm/s TR Peak Gradient 49.9 mmHg Right Ventricular Systolic Press 54.9 mmHg FINDINGS Left Ventricle Left ventricular ejection fraction is estimated at 55-60%. Severely increased left ventricular diastolic diameter. Right Ventricle Severe pulmonary hypertension. Right ventricular systolic pressure estimated at 55 mm hg. Right Atrium Right atrium not well visualized. Left Atrium Moderately increased left atrial diameter. Mitral Valve Mitral valve not well visualized. Aortic Valve Aortic valve not well visualized. Tricuspid Valve Tricuspid valve not well visualized. Mild tricuspid regurgitation. Pulmonic Valve Pulmonic valve not well visualized. Pericardium No pericardial effusion. Aorta Normal size aortic root and proximal ascending aorta. CONCLUSIONS Very technically difficult study. Left ventricular ejection fraction is estimated at 55-60 %. Probably normal wall motion on definity imaging. RV not well visulaized. Severe Pulmo HTN with RVSP 55 mmHg Dilated IVC with poor respiratory collapse Previewed by: Dr Thomas Serna (Electronically Signed) Final Date: 22 October 2023 16:27
--- NOTE | 2023-10-22 17:15 | P.CRDCN ---
History of Present Illness Consult date: 10/22/23 History of present illness: HISTORY OF PRESENTING ILLNESS 53-year-old morbidly obese female presented to the hospital because of worsening dyspnea on exertion, shortness of breath. She has a past medical history of diastolic heart failure, smoking, COPD on oxygen, dyslipidemia, CAD with prior PCI by Dr. Melgoza. Prior echocardiogram showed an EF of 55 to 60%. On presentation her labs showed troponins negative x 3, BNP 900, lactate 1.8, bicarb 29, BUN 17, creatinine 0.6, sodium 138, potassium 4.7. Hemoglobin 14 X-ray showed increased interstitial markings and signs of pulm congestion. Patient reported that she had significant swelling in her bilateral lower and upper extremities. She has received 40 mg of IV Lasix every 8 hours and has significant urine output with a negative fluid balance of 3.2 L per REVIEW OF SYSTEMS 14 point review of system is negative except what is mentioned above in HPI. PHYSICAL EXAMINATION Vital signs reviewed. Neck: Difficult to assess JVD due to body habitus Lungs: Diminished breath sounds bilaterally, mild crackles audible Heart: Regular rate and rhythm, S1-S2, no S3, no murmur or rub. Abdomen: Soft nontender, positive bowel sounds. Extremities: 1+ pitting edema bilateral lower extremity. Neuro: Alert, oritented, no focal deficits. Detailed neuro exam was not performed. ASSESSMENT HFpEF exacerbation Moderate pulmonary hypertension, suspect obstructive sleep apnea COPD with chronic hypoxia on home oxygen Tobacco smoker Morbid obesity CAD s/p PCI PLAN Obtain echocardiogram which showed an EF of 55 to 60%, no obvious regional wall motion abnormality. RV was poorly visualized. RVSP is elevated at 55 mmHg, IVC is dilated suggest fluid overload. Continue IV Lasix 40 mg every 8 hours today. Transition it to twice daily tomorrow Start lisinopril 5 mg daily, spironolactone 25 mg daily for diastolic heart failure Would benefit from SGLT2 which will be started prior to discharge Thomas Serna MD, FACC, RPVI Thank you for allowing [facility] to participate in this patient's care. Feel free to reach out in case of any followup questions. Past Medical History Past Medical History: Chest Pain / Angina, Heart Failure, COPD, CVA/TIA, Hearing Disorder / Deafness, Hyperlipidemia, Hypertension, Myocardial Infarction (SD), Osteoarthritis (OA), Skin Disorder Additional Past Medical History / Comment(s): See Dr Melgoza's H&P. SOB with activity, has O2 that she uses as needed, but states it was not prescibed to her, it was her Dad's. Chronic back, knee and hip pain. Hx SD X6. Varicose veins. Acne. Last Myocardial Infarction Date:: 2020 History of Any Multi-Drug Resistant Organisms: MRSA Date of last positivie culture/infection: 09/08/2015 MDRO Source:: Abdomen Past Surgical History: Section, Heart Catheterization With Stent, Hernia Repair, Tubal Ligation Additional Past Surgical History / Comment(s): Cardiac and peripheral stents 2012 and 2015, abdominal hernia repair initially done in 2003, with revision 10/23/2014, abdominal wall exploration and placement of wound vac, abdominal wound surgical debridement X3 January 2015. Past Anesthesia/Blood Transfusion Reactions: Previous Problems w/ Anesthesia, Motion Sickness Additional Past Anesthesia/Blood Transfusion Reaction / Comment(s): Very hard time coming out of anesthesia. Dad and Mom have hard time up waking up. Date of Last Stent Placement:: 2018 Past Psychological History: Anxiety, Bipolar, Depression Smoking Status: Current every day smoker Past Alcohol Use History: Occasional Additional Past Alcohol Use History / Comment(s): Smoker of 1ppd, currently down to 6-10 cigarettes per day, has smoked since age 9. No alcohol in 2 yrs. Past Drug Use History: Marijuana Additional Drug Use History / Comment(s): Occasional medical marijuana. Aware no use 24 hrs prior to procedure. - Past Family History Father Family Medical History: COPD, CVA/TIA, Diabetes Mellitus, Deep Vein Thrombosis (DVT) Mother Family Medical History: COPD Additional Family Medical History / Comment(s): Hiatal hernia, anxiety. Sister(s) Family Medical History: Cancer Additional Family Medical History / Comment(s): Lung cancer. Medications and Allergies Home Medications Medication Instructions Recorded Confirmed Type Atorvastatin [Lipitor] 80 mg PO DAILY 01/11/21 10/21/23 History Metoprolol Succinate (ER) [Toprol 25 mg PO DAILY 01/11/21 10/21/23 History XL] Clopidogrel [Plavix] 75 mg PO DAILY #30 tab 09/19/22 10/21/23 Rx Albuterol Inhaler [Ventolin Hfa 2 puff INHALATION RT-QID PRN 10/21/23 10/21/23 History Inhaler] Albuterol Nebulized [Ventolin 2.5 mg INHALATION RT-QID 10/21/23 10/21/23 History Nebulized] Allergies Allergy/AdvReac Type Severity Reaction Status Date / Time codeine Allergy Anaphylaxis Verified 10/21/23 20:10 Influenza Virus Vaccines Allergy Anaphylaxis Verified 10/21/23 20:10 Penicillins Allergy Anaphylaxis Verified 10/21/23 20:10 Physical Exam Vitals: Vital Signs Temp Pulse Pulse Resp BP BP Pulse Ox 10/22/23 14:00 83 24 10/22/23 12:18 82 10/22/23 12:05 82 10/22/23 09:08 85 10/22/23 08:58 84 10/22/23 08:00 98.2 F 83 24 150/76 91 L 10/22/23 05:00 98.2 F 91 22 137/75 92 L 10/22/23 04:36 67 10/22/23 04:27 65 10/22/23 01:00 98.1 F 92 28 H 142/72 10/22/23 00:35 85 16 152/83 92 L 10/22/23 00:02 68 10/21/23 23:53 66 10/21/23 23:20 92 L 10/21/23 22:52 66 18 151/79 90 L 10/21/23 21:27 80 10/21/23 21:16 84 Intake and Output 10/22/23 10/22/23 10/22/23 06:59 14:59 22:59 Output Total 3200 1650 1000 Balance -3200 -1650 -1000 Output: Urine 3200 1650 1000 Other: Voiding Method Bedside Commode External Catheter # Voids 1 1 Weight 195 kg Results 10/22/23 07:36 10/22/23 07:36 Cardiac Enzymes 10/21/23 10/21/23 10/21/23 Range/Units 17:02 17:02 20:27 AST 20 (14-36) U/L Troponin I <0.012 <0.012 (0.000-0.034) ng/mL 10/22/23 Range/Units 01:26 AST (14-36) U/L Troponin I <0.012 (0.000-0.034) ng/mL Coagulation 10/21/23 Range/Units 17:02 PT 11.1 (10.0-12.5) sec APTT 23.1 (22.0-30.0) sec CBC 10/21/23 10/22/23 Range/Units 17:02 07:36 WBC 8.9 6.9 (3.8-10.6) k/uL RBC 4.73 4.87 (3.80-5.40) m/uL Hgb 13.7 14.2 (11.4-16.0) gm/dL Hct 42.1 43.5 (34.0-46.0) % Plt Count 207 208 (150-450) k/uL Comprehensive Metabolic Panel 10/21/23 10/22/23 Range/Units 17:02 07:36 Sodium 139 138 (137-145) mmol/L Potassium 4.2 4.7 (3.5-5.1) mmol/L Chloride 105 99 (98-107) mmol/L Carbon Dioxide 29 29 (22-30) mmol/L BUN 14 17 (7-17) mg/dL Creatinine 0.61 0.64 (0.52-1.04) mg/dL Glucose 102 H 144 H (74-99) mg/dL Calcium 8.4 8.8 (8.4-10.2) mg/dL AST 20 (14-36) U/L ALT 18 (4-34) U/L Alkaline Phosphatase 102 (38-126) U/L Total Protein 6.6 (6.3-8.2) g/dL Albumin 3.6 (3.5-5.0) g/dL Current Medications Generic Name Dose Route Start Last Admin Trade Name Freq PRN Reason Stop Dose Admin Albuterol/Ipratropium 3 ml 10/22/23 12:00 10/22/23 16:34 Ipratropium-Albuterol 3 Ml Neb INHALATION Not Given RT-QID CHARBEL Atorvastatin Calcium 80 mg 10/22/23 09:00 10/22/23 08:26 Atorvastatin 80 Mg Tab PO 80 mg DAILY CHARBEL Administration Budesonide/Formoterol Fumarate 2 puff 10/22/23 20:00 Symbicort 160-4.5 Mcg Inhaler INHALATION RT-BID CHARBEL Clopidogrel Bisulfate 75 mg 10/22/23 09:00 10/22/23 08:26 Clopidogrel 75 Mg Tab PO 75 mg DAILY CHARBEL Administration Famotidine 20 mg 10/22/23 09:00 10/22/23 08:26 Famotidine 20 Mg/2 Ml Vial IV 20 mg Q12HR CHARBEL Administration Furosemide 40 mg 10/22/23 00:00 10/22/23 14:51 Furosemide 10 Mg/Ml 4 Ml Vial IV 40 mg Q8HR CHARBEL Administration Heparin Sodium (Porcine) 5,000 unit 10/22/23 08:00 10/22/23 14:50 Heparin Sodium,Porcine 5,000 Unit/Ml 1 Ml Vial SQ 5,000 unit Q8HR CHARBEL Administration Lisinopril 5 mg 10/23/23 09:00 Lisinopril 5 Mg Tab PO DAILY CHARBEL Methylprednisolone Sodium Succinate 60 mg 10/22/23 14:00 10/22/23 14:51 Methylprednisolone Sod Succi 125 Mg/2 Ml Vial IV 60 mg Q6H CHARBEL Administration Metoprolol Succinate 25 mg 10/22/23 09:00 10/22/23 08:26 Metoprolol Succinate (Er) 25 Mg Tab.Er.24h PO 25 mg DAILY CHARBEL Administration Naloxone HCl 0.2 mg 10/21/23 20:12 Naloxone 0.4 Mg/Ml 1 Ml Vial IV Q2M PRN Opioid Reversal Nicotine 1 patch 10/23/23 09:00 Nicotine 21mg/24hr Patch TRANSDERM DAILY CHARBEL Spironolactone 25 mg 10/22/23 15:30 Spironolactone 25 Mg Tab PO DAILY CHARBEL Intake and Output 10/22/23 10/22/23 10/22/23 06:59 14:59 22:59 Output Total 3200 1650 1000 Balance -3200 -1650 -1000 Output: Urine 3200 1650 1000 Other: Voiding Method Bedside Commode External Catheter # Voids 1 1 Weight 195 kg 10/22/23 07:36 10/22/23 07:36
[2023-10-22] MEDS: SPIRONOLACTONE 25 MG TAB PO SCH (18:06)
[2023-10-22] MEDS: SYMBICORT 160-4.5 MCG INHALER INHALATION SCH (19:22)
[2023-10-23] MEDS: FAMOTIDINE 20 MG TAB PO SCH (08:56)
[2023-10-23] MEDS: NICOTINE 21MG/24HR PATCH TRANSDERM SCH (08:56)
[2023-10-23] MEDS: lisinopriL 5 MG TAB PO SCH (08:57)
--- NOTE | 2023-10-23 11:56 | P.PN ---
Subjective This is a pleasant 53 years old female with past medical history of Coronary artery disease status post stent , heart Failure, COPD, CVA/TIA, Hearing Disorder / Deafness, Hyperlipidemia, Hypertension,, Osteoarthritis (OA), has O2 that she uses as needed, but states it was not prescibed to her, it was her Dad's. Chronic back, knee and hip, anxiety depression and bipolar Patient presents because of worsening dyspnea over a few days without specif ication associated with cough and yellow phlegm but no chest pain She denies chills or urine or bowel symptoms. No headache dizziness weakness. She cutting down her smoking down to 3 to 7 cigarettes/day and she was counseled to quit and she agrees but she declines nicotine patch. No alcohol or illicit drugs. Currently she is saturating 90s on 6 L oxygen via nasal cannula. Blood pressure stable. Patient is afebrile. She has unremarkable CBC, INR, BMP, liver enzymes and troponin x 3 are negative less than 0.012. D-dimer is 1.17. proBNP is 924. Chest x-ray showing evidence of congestive heart failure. Right leg ultrasound is negative for deep venous thrombosis Patient was started on IV Lasix 40 mgevery 8 hours with IV Solu-Medrol 40 mg. He was admitted with pulmonary and cardiology consult. Objective - Vital Signs Vital signs: Vital Signs Temp 98 F 10/23/23 08:00 Pulse 88 10/23/23 08:00 Resp 22 10/23/23 08:00 BP 149/87 10/23/23 08:00 Pulse Ox 93 L 10/23/23 08:00 FiO2 Intake & Output 10/22/23 10/23/23 10/23/23 17:59 06:59 18:59 Intake Total 530 Output Total 350 Balance 180 Weight Intake: IV 10 Invasive Line 2 10 Oral 520 Output: Urine 350 Other: Voiding Method # Voids # Bowel Movements - Exam -GENERAL: The patient is alert and oriented x3, not in any acute distress. We morbidly obese. HEENT: Pupils are round and equally reacting to light. EOMI. No scleral icterus. No conjunctival pallor. Normocephalic, atraumatic. No pharyngeal erythema. No thyromegaly. CARDIOVASCULAR: S1 and S2 present. No murmurs, rubs, or gallops. -PULMONARY: Chest is clear to auscultation, no wheezing. Faint bilateral basal crackles. Mildly tachypneic ABDOMEN: Soft, nontender, nondistended, normoactive bowel sounds. No palpable organomegaly. MUSCULOSKELETAL: No joint swelling or deformity. -EXTREMITIES: No cyanosis, clubbing,. Bilateral pitting leg edema. NEUROLOGICAL: Gross neurological examination did not reveal any focal deficits. SKIN: No rashes. no petechiae. - Labs CBC & Chem 7: 10/22/23 07:36 10/22/23 07:36 Assessment and Plan Assessment: Acute on chronic diastolic CHF with preserved ejection fraction Acute COPD exacerbation Acute on chronic hypoxic respiratory failure Morbid obesity with BMI of 69.4. History of coronary artery disease status post stent Diabetes mellitus Hypertension Hyperlipidemia History of osteoarthritis Plan: Continue with IV Lasix. 5 mg lisinopril added Continue with IV Solu-Medrol Continue with bronchodilator Continue with oxygen as needed. Pulmonary and cardiology consult. Labs and medication were reviewed.. Continue same treatment. Continue with symptomatic treatment. Resume home medication. Monitor lytes and vitals. DVT and GI prophylaxis. Further recommendations depends on the clinical course of the patient DVT prophylaxis: Subcutaneous heparin GI Prophylaxis: Pepcid PT/OT: Pending Prognosis is guarded
--- NOTE | 2023-10-23 13:15 | P.PN ---
Subjective Progress Note Date: 10/23/23 This is a pleasant 53-year-old female patient who is morbidly obese and has a history of chronic diastolic congestive heart failure, chronic and ongoing tobacco dependence, oxygen dependent chronic obstructive pulmonary disease, hyperlipidemia, coronary disease with previous stent placement, preserved left ventricular systolic function with ejection fraction 55 to 60%. She presented here to the emergency room yesterday with complaints of increasing shortness of breath and swelling of her lower extremities. She was sent here from her PCP Dr. Christine's office. X-ray reveals borderline cardiomegaly with diffuse interstitial density. Mild CHF with pulmonary vascular congestion. Doppler of the lower right extremity negative for DVT. White count 6.9. Hemoglobin 14.2. Platelets 208. Sodium 138. Potassium 4.7. Bicarb 29. BUN 17. Creatinine 0.64. Glucose 144. Troponins were negative x 3. proBNP 924. Lactic acid 1.8. She is seen today in consultation on the regular medical floor. She is currently sitting up in a chair. Awake and alert in no acute distress. She is breathing a bit easier today compared to yesterday. She is requiring oxygen at 6 L high flow nasal cannula. She is normally on 2 to 4 L at home. She has been initiated on Lasix 40 mg IVP every 8 hours. Currently in a -3.2 L balance. She is afebrile. Hemodynamically stable The patient is seen today October 23, 2023 in follow-up on the selective care unit. She is currently resting comfortably in bed. Awake and alert in no acute distress. She is doing quite a bit better today compared to yesterday. Less shortness of breath. Less edema. Maintaining O2 saturations in the 90s on 4 L/min per nasal cannula. She remains on DuoNeb ventilations, Symbicort, Solu- Medrol. NicoDerm patch in place. Heparin for DVT prophylaxis. Continued on Lasix 40 mg IV every 8 hours. Currently in a -4.2 L balance. Objective - Vital Signs Vital signs: Vital Signs Temp 98 F 10/23/23 08:00 Pulse 88 10/23/23 12:46 Resp 22 10/23/23 12:46 BP 149/87 10/23/23 08:00 Pulse Ox 93 L 10/23/23 08:00 FiO2 Intake & Output 10/22/23 10/23/23 10/23/23 17:59 06:59 18:59 Intake Total 530 Output Total 2300 Balance -1770 Weight Intake: IV 10 Invasive Line 2 10 Oral 520 Output: Urine 2300 Other: Voiding Method # Voids # Bowel Movements - Exam GENERAL EXAM: Alert, morbidly obese, pleasant 53-year-old female, on 4 L nasal cannula, comfortable in no apparent distress. HEAD: Normocephalic. EYES: Normal reaction of pupils, equal size. NOSE: Clear with pink turbinates. THROAT: No erythema or exudates. NECK: No masses, no JVD. CHEST: No chest wall deformity. LUNGS: Equal air entry with Eckels in the bilateral bases. CVS: S1 and S2 normal with no audible murmur, regular rhythm. ABDOMEN: Obesity, unable to appreciate organomegaly, normal bowel sounds, no guarding or rigidity. SPINE: No scoliosis or deformity SKIN: No rashes CENTRAL NERVOUS SYSTEM: No focal deficits, tone is normal in all 4 extremities. EXTREMITIES: Changes of chronic venous stasis. There is 1-2+ peripheral edema. No clubbing, no cyanosis. Peripheral pulses are intact. - Labs CBC & Chem 7: 10/22/23 07:36 10/22/23 07:36 Assessment and Plan Assessment: Acute on chronic hypoxemic respiratory failure secondary to an acute exacerbation of diastolic congestive heart failure Acute exacerbation of chronic obstructive pulmonary disease Chronic hypoxemic respiratory failure maintained on oxygen at 2 to 4 L at outpatient setting Chronic and ongoing tobacco dependence Morbid obesity with a BMI of 69.4 kg/m Suspect obesity/hypoventilation syndrome. Mainly sleeps up in a chair Coronary disease with previous stent placement Changes of chronic venous stasis of the lower extremity Hyperlipidemia Hypertension History of hearing disorder History of anxiety/depression History of marijuana use Plan: The patient was seen and evaluated Labs and medications reviewed Remains in a significant negative balance Continue with the current treatment plan Titrate the FiO2 as tolerated Increase her activity as tolerated We will continue to follow I have personally seen and examined the patient, performed the documentation and the assessment and plan as written. Number of minutes spent on the visit: 10.
[2023-10-23] MEDS ORDERED: ASPIRIN 81 MG PO SCH (17:30)
--- NOTE | 2023-10-23 17:52 | P.PN ---
Subjective Progress Note Date: 10/23/23 HISTORY OF PRESENTING ILLNESS 53-year-old morbidly obese female presented to the hospital because of worsening dyspnea on exertion, shortness of breath. She has a past medical history of diastolic heart failure, smoking, COPD on oxygen, dyslipidemia, CAD with prior PCI by Dr. Melgoza. Prior echocardiogram showed an EF of 55 to 60%. On presentation her labs showed troponins negative x 3, BNP 900, lactate 1.8, bicarb 29, BUN 17, creatinine 0.6, sodium 138, potassium 4.7. Hemoglobin 14 X-ray showed increased interstitial markings and signs of pulm congestion. Patient reported that she had significant swelling in her bilateral lower and upper extremities. She has received 40 mg of IV Lasix every 8 hours and has significant urine output with a negative fluid balance of 3.2 L per Progress note 10/23/2023 Patient has responded well to IV diuretics. Patient reported that she had made significant amount of urine. She reports her swelling in bilateral upper and lower extremity has somewhat returned to her baseline. PHYSICAL EXAMINATION Vital signs reviewed. Neck: Difficult to assess JVD due to body habitus Lungs: Diminished breath sounds bilaterally, mild crackles audible Heart: Regular rate and rhythm, S1-S2, no S3, no murmur or rub. Abdomen: Soft nontender, positive bowel sounds. Extremities: 1+ pitting edema bilateral lower extremity. Neuro: Alert, oritented, no focal deficits. Detailed neuro exam was not performed. ASSESSMENT HFpEF exacerbation Moderate pulmonary hypertension, suspect obstructive sleep apnea COPD with chronic hypoxia on home oxygen Tobacco smoker Morbid obesity CAD s/p PCI LCx with in-stent stenosis with residual [employer] echocardiogram showed an EF of 55 to 60%, no obvious regional wall motion abnormality. RV was poorly visualized. RVSP is elevated at 55 mmHg, IVC is dilated suggest fluid overload. Give 1 dose of IV Lasix along with metolazone today. Transition to Bumex 1 mg p.o. daily from tomorrow. Continue Aldactone 25 mg daily. Start Farxiga 10 mg daily. Increase lisinopril to 10 mg daily for diastolic heart failure. Continue metoprolol succinate 25 mg daily Continue Plavix for prior CAD with PCI If patient is able to ambulate and reports her shortness of breath is back to normal, she is okay to be discharged from cardiovascular standpoint with outpatient follow-up with Dr. Solitario. Continue IV Lasix 40 mg every 8 hours today. Transition it to twice daily tomorrow Salt restriction, water restriction and daily weight discussed with Objective - Vital Signs Vital signs: Vital Signs Temp 98.4 F 10/23/23 14:26 Pulse 89 10/23/23 14:26 Resp 20 10/23/23 14:26 BP 158/67 10/23/23 14:26 Pulse Ox 92 L 10/23/23 14:26 FiO2 Intake & Output 10/22/23 10/23/23 10/23/23 17:59 06:59 18:59 Intake Total 1070 Output Total 2300 Balance -1230 Weight Intake: IV 10 Invasive Line 2 10 Oral 1060 Output: Urine 2300 Other: Voiding Method # Voids 1 # Bowel Movements - Labs CBC & Chem 7: 10/22/23 07:36 10/22/23 07:36
[2023-10-23 18:04] LABS: Glucose,Whole Blood 240 mg/dL (70-110)
[2023-10-23 20:34] LABS: Glucose,Whole Blood 208 mg/dL (70-110)
[2023-10-23] MEDS: FUROSEMIDE 10 MG/ML 4 ML VIAL IV STA (21:52)
[2023-10-23] MEDS: metOLazone 2.5 MG TAB PO SCH (21:53)
[2023-10-23] MEDS: DAPAGLIFLOZIN PROPANEDIOL 10 MG TABLET PO SCH (21:53)
[2023-10-23] MEDS: INSULIN ASPART (NovoLOG) 100 UNIT/ML VIAL SQ SCH (21:54)
[2023-10-23] MEDS: CYCLOBENZAPRINE 10 MG TAB PO PRN (23:17)
[2023-10-24 03:46] VITALS: RESP 18
[2023-10-24 06:15] LABS: Glucose,Whole Blood 155 mg/dL (70-110)
[2023-10-24] MEDS ORDERED: BUMETANIDE 1 MG TAB PO SCH (09:00)
[2023-10-24] MEDS: lisinopriL 10 MG TAB PO SCH (10:15)
[2023-10-24] MEDS: BUMETANIDE 1 MG TAB PO SCH (10:15)
[2023-10-24 12:16] LABS: Glucose,Whole Blood 110 mg/dL (70-110)
[2023-10-24] MEDS: ALPRAZolam 0.25 MG TAB PO STA (13:06)
[2023-10-24 13:49] LABS: Basophils % (A) 0 %; Eosinophils # (A) 0.1 k/uL (0-0.7); Eosinophils % (A) 0 %; HCT 50.6 % (34.0-46.0); HGB 15.9 gm/dL (11.4-16.0); Lymphocytes # (A) 0.5 k/uL (1.0-4.8); Lymphocytes % (A) 3 %; MCH 27.8 pg (25.0-35.0); MCHC 31.4 g/dL (31.0-37.0); MCV 88.6 fL (80.0-100.0); Mean Platelet Volume 7.4; Monocytes # (A) 0.9 k/uL (0-1.0); Monocytes % (A) 5 %; Neutrophils # (A) 14.8 k/uL (1.3-7.7); Neutrophils % (A) 90 %; Platelet Count 307 k/uL (150-450); RBC 5.71 m/uL (3.80-5.40); RDW 15.6 % (11.5-15.5); WBC 16.4 k/uL (3.8-10.6)
[2023-10-24 14:02] LABS: African American GFR (CKD) >90 (>60 ml/min/1.73 sqM); Anion Gap 5 mmol/L; Blood Urea Nitrogen 33 mg/dL (7-17); Calcium 8.9 mg/dL (8.4-10.2); Carbon Dioxide 38 mmol/L (22-30); Chloride 94 mmol/L (98-107); Glucose 143 mg/dL (74-99); Non-African American GFR(CKD) 84 (>60 ml/min/1.73 sqM); Sodium 137 mmol/L (137-145)
--- NOTE | 2023-10-24 14:17 | P.PN ---
Subjective Progress Note Date: 10/24/23 This is a pleasant 53-year-old female patient who is morbidly obese and has a history of chronic diastolic congestive heart failure, chronic and ongoing tobacco dependence, oxygen dependent chronic obstructive pulmonary disease, hyperlipidemia, coronary disease with previous stent placement, preserved left ventricular systolic function with ejection fraction 55 to 60%. She presented here to the emergency room yesterday with complaints of increasing shortness of breath and swelling of her lower extremities. She was sent here from her PCP Dr. Christine's office. X-ray reveals borderline cardiomegaly with diffuse interstitial density. Mild CHF with pulmonary vascular congestion. Doppler of the lower right extremity negative for DVT. White count 6.9. Hemoglobin 14.2. Platelets 208. Sodium 138. Potassium 4.7. Bicarb 29. BUN 17. Creatinine 0.64. Glucose 144. Troponins were negative x 3. proBNP 924. Lactic acid 1.8. She is seen today in consultation on the regular medical floor. She is currently sitting up in a chair. Awake and alert in no acute distress. She is breathing a bit easier today compared to yesterday. She is requiring oxygen at 6 L high flow nasal cannula. She is normally on 2 to 4 L at home. She has been initiated on Lasix 40 mg IVP every 8 hours. Currently in a -3.2 L balance. She is afebrile. Hemodynamically stable The patient is seen today October 23, 2023 in follow-up on the selective care unit. She is currently resting comfortably in bed. Awake and alert in no acute distress. She is doing quite a bit better today compared to yesterday. Less shortness of breath. Less edema. Maintaining O2 saturations in the 90s on 4 L/min per nasal cannula. She remains on DuoNeb ventilations, Symbicort, Solu- Medrol. NicoDerm patch in place. Heparin for DVT prophylaxis. Continued on Lasix 40 mg IV every 8 hours. Currently in a -4.2 L balance. The patient is seen today October 24, 2023 in follow-up on the selective care unit. She is awake and alert in no acute distress. Resting comfortably in bed. She is maintaining O2 saturations in the 90s on 4 L/min per nasal cannula. Count 16.4. Hemoglobin 15.9. Platelets 307. Sodium 137. Potassium 4.0. Bicarb 38. BUN 33. Creatinine 0.80. Glucose 143. She remains on DuoNeb ventilations, Symbicort, Solu-Medrol. Heparin for DVT prophylaxis. Oral diuretics. NicoDerm patch in place. Currently in a -3.1 L balance. Objective - Vital Signs Vital signs: Vital Signs Temp 98 F 10/24/23 10:10 Pulse 76 10/24/23 12:30 Resp 18 10/24/23 10:10 BP 145/78 10/24/23 10:10 Pulse Ox 93 L 10/24/23 10:10 FiO2 Intake & Output 10/23/23 10/24/23 10/24/23 18:59 06:59 18:59 Intake Total 1610 540 Output Total 2300 3000 600 Balance -690 -2460 -600 Weight 187.6 kg Intake: IV 10 Invasive Line 2 10 Oral 1600 540 Output: Urine 2300 3000 600 Other: Voiding Method External Catheter # Voids 1 - Exam GENERAL EXAM: Alert, pleasant 53-year-old female, on 4 L nasal cannula, in no apparent distress. HEAD: Normocephalic. EYES: Normal reaction of pupils, equal size. NOSE: Clear with pink turbinates. THROAT: No erythema or exudates. NECK: No masses, no JVD. CHEST: No chest wall deformity. LUNGS: Equal air entry with crackles in the bilateral bases. CVS: S1 and S2 normal with no audible murmur, regular rhythm. ABDOMEN: Obesity, unable to appreciate organomegaly, normal bowel sounds, no guarding or rigidity. SPINE: No scoliosis or deformity SKIN: No rashes CENTRAL NERVOUS SYSTEM: No focal deficits, tone is normal in all 4 extremities. EXTREMITIES: Changes of chronic venous stasis. There is 1-2+ peripheral edema. No clubbing, no cyanosis. Peripheral pulses are intact. - Labs CBC & Chem 7: 10/24/23 13:02 10/24/23 13:02 Labs: Abnormal Lab Results - Last 24 Hours (Table) 10/23/23 10/23/23 10/24/23 Range/Units 18:02 20:33 06:14 WBC (3.8-10.6) k/uL RBC (3.80-5.40) m/uL Hct (34.0-46.0) % RDW (11.5-15.5) % Neutrophils # (1.3-7.7) k/uL Lymphocytes # (1.0-4.8) k/uL Chloride (98-107) mmol/L Carbon Dioxide (22-30) mmol/L BUN (7-17) mg/dL Glucose (74-99) mg/dL POC Glucose (mg/dL) 240 H 208 H 155 H (70-110) mg/dL 10/24/23 10/24/23 Range/Units 13:02 13:02 WBC 16.4 H (3.8-10.6) k/uL RBC 5.71 H (3.80-5.40) m/uL Hct 50.6 H (34.0-46.0) % RDW 15.6 H (11.5-15.5) % Neutrophils # 14.8 H (1.3-7.7) k/uL Lymphocytes # 0.5 L (1.0-4.8) k/uL Chloride 94 L (98-107) mmol/L Carbon Dioxide 38 H (22-30) mmol/L BUN 33 H (7-17) mg/dL Glucose 143 H (74-99) mg/dL POC Glucose (mg/dL) (70-110) mg/dL Assessment and Plan Assessment: Acute on chronic hypoxemic respiratory failure secondary to an acute exacerbation of diastolic congestive heart failure Acute exacerbation of chronic obstructive pulmonary disease Chronic hypoxemic respiratory failure maintained on oxygen at 2 to 4 L at outpatient setting Chronic and ongoing tobacco dependence Morbid obesity with a BMI of 69.4 kg/m Suspect obesity/hypoventilation syndrome. Mainly sleeps up in a chair Coronary disease with previous stent placement Changes of chronic venous stasis of the lower extremity Hyperlipidemia Hypertension History of hearing disorder History of anxiety/depression History of marijuana use Plan: The patient was seen and evaluated Labs and medications reviewed Remains in a negative balance Titrate the FiO2 as tolerated Increase her activity as tolerated We will continue to follow I have personally seen and examined the patient, performed the documentation and the assessment and plan as written. Number of minutes spent on the visit: 10.
--- NOTE | 2023-10-24 15:53 | P.PN ---
Subjective Progress Note Date: 10/24/23 HISTORY OF PRESENTING ILLNESS 53-year-old morbidly obese female presented to the hospital because of worsening dyspnea on exertion, shortness of breath. She has a past medical history of diastolic heart failure, smoking, COPD on oxygen, dyslipidemia, CAD with prior PCI by Dr. Melgoza. Prior echocardiogram showed an EF of 55 to 60%. On presentation her labs showed troponins negative x 3, BNP 900, lactate 1.8, bicarb 29, BUN 17, creatinine 0.6, sodium 138, potassium 4.7. Hemoglobin 14 X-ray showed increased interstitial markings and signs of pulm congestion. Patient reported that she had significant swelling in her bilateral lower and upper extremities. She has received 40 mg of IV Lasix every 8 hours and has significant urine output with a negative fluid balance of 3.2 L per Progress note 10/23/2023 Patient has responded well to IV diuretics. Patient reported that she had made significant amount of urine. She reports her swelling in bilateral upper and lower extremity has somewhat returned to her baseline. echocardiogram showed an EF of 55 to 60%, no obvious regional wall motion abnor mality. RV was poorly visualized. RVSP is elevated at 55 mmHg, IVC is dilated suggest fluid overload. 10/23 Patient denies any chest pain no lower extremity edema. She is been transition to oral Bumex. Plan is for discharge home tomorrow. Blood pressure 145/70, heart rate 72, pulse ox 93% on 4 L nasal cannula. Repeat blood work reveals WBC 16.4, hemoglobin 15.9, platelet count 307. Sodium 137, potassium 4.0, BUN 33 creatinine 0.8. Blood sugar 143. Patient has a negative fluid balance today of 3150. Weight is down half a kilogram from yesterday. Telemetry sinus rhythm. She still has PHYSICAL EXAMINATION Vital signs reviewed. Neck: Difficult to assess JVD due to body habitus Lungs: Scattered rhonchi and wheezing bilaterally Heart: Regular rate and rhythm, S1-S2, no S3, no murmur or rub. Abdomen: Soft nontender, positive bowel sounds. Extremities: 1+ pitting edema bilateral lower extremity. Neuro: Alert, oritented, no focal deficits. Detailed neuro exam was not performed. ASSESSMENT HFpEF exacerbation Moderate pulmonary hypertension, suspect obstructive sleep apnea COPD with chronic hypoxia on home oxygen Tobacco smoker Morbid obesity CAD s/p PCI LCx with in-stent stenosis with residual [employer] Continue oral Bumex 1 mg p.o. daily, Aldactone 25 mg daily, Farxiga 10 mg daily, lisinopril to 10 mg daily for diastolic heart failure. Continue metoprolol succinate 25 mg daily Continue Plavix for prior CAD with PCI If patient is able to ambulate and reports her shortness of breath is back to normal, she is okay to be discharged from cardiovascular standpoint with outp atient follow-up with Dr. Melgoza. Nurse practitioner note has been reviewed, I agree with documented findings and plan of care. Patient was seen and examined. Objective - Vital Signs Vital signs: Vital Signs Temp 98 F 10/24/23 10:10 Pulse 76 10/24/23 12:30 Resp 18 10/24/23 10:10 BP 145/78 10/24/23 10:10 Pulse Ox 93 L 10/24/23 10:10 FiO2 Intake & Output 10/23/23 10/24/23 10/24/23 18:59 06:59 18:59 Intake Total 1610 540 Output Total 2300 3000 600 Balance -690 -2460 -600 Weight 187.6 kg Intake: IV 10 Invasive Line 2 10 Oral 1600 540 Output: Urine 2300 3000 600 Other: Voiding Method External Catheter # Voids 1 - Labs CBC & Chem 7: 10/24/23 13:02 10/24/23 13:02 Labs: Abnormal Lab Results - Last 24 Hours (Table) 10/23/23 10/23/23 10/24/23 Range/Units 18:02 20:33 06:14 POC Glucose (mg/dL) 240 H 208 H 155 H (70-110) mg/dL
[2023-10-24 17:04] LABS: Glucose,Whole Blood 147 mg/dL (70-110)
[2023-10-24 20:09] LABS: Glucose,Whole Blood 234 mg/dL (70-110)
[2023-10-25 03:12] VITALS: TEMP 97.8
--- NOTE | 2023-10-25 04:39 | P.PN ---
Subjective Progress Note Date: 10/24/23 This is a pleasant 53 years old female with past medical history of Coronary artery disease status post stent , heart Failure, COPD, CVA/TIA, Hearing Disorder / Deafness, Hyperlipidemia, Hypertension,, Osteoarthritis (OA), has O2 that she uses as needed, but states it was not prescibed to her, it was her Dad's. Chronic back, knee and hip, anxiety depression and bipolar Patient presents because of worsening dyspnea over a few days without specification associated with cough and yellow phlegm but no chest pain She denies chills or urine or bowel symptoms. No headache dizziness weakness. She cutting down her smoking down to 3 to 7 cigarettes/day and she was counseled to quit and she agrees but she declines nicotine patch. No alcohol or illicit drugs. Currently she is saturating 90s on 6 L oxygen via nasal cannula. Blood pressure stable. Patient is afebrile. She has unremarkable CBC, INR, BMP, liver enzymes and troponin x 3 are negative less than 0.012. D-dimer is 1.17. proBNP is 924. Chest x-ray showing evidence of congestive heart failure. Right leg ultrasound is negative for deep venous thrombosis Patient was started on IV Lasix 40 mgevery 8 hours with IV Solu-Medrol 40 mg. He was admitted with pulmonary and cardiology consult. 10/24/2023 Patient is seen and evaluated in follow-up today with cardiology and pulmonary following for COPD and CHF exacerbation. Patient is maintained on 4 L via nasal cannula and will arrange for home oxygen in the outpatient setting. Patient r eports she has been using her father's concentrator as she has been unable to obtain her own. Patient continues on IV steroids along with IV Lasix and being transition to oral Bumex. Patient continues with shortness of breath and wheezing will continue IV steroids with Accu-Cheks before meals and at bedtime and sliding scale as needed. Will discuss with case management regarding discharge planning as patient is tearful she has been unable to receive help getting a bedside commode and oxygen outpatient. Patient feels overwhelmed and helpless but denies any thoughts of suicidal ideation or wanting to harm herself. Patient feels frustrated she has been asking her primary care provider for assistance with weight loss and feels this being dismissed. Review of systems: Constitutional: No reports of fatigue, fever, or chills Cardiovascular: No reports of chest pain or palpitations Respiratory: reports of shortness of breath with exertion GI: No reports of nausea, vomiting, or diarrhea : No reports of dysuria or retention Neurovascular: reports of generalized weakness All medications have been reviewed Physical exam: GENERAL: The patient is alert and oriented x3, well-developed, well-nourished. Tearful. Morbidly obese. HEENT: Pupils are round and equally reacting to light. EOMI. No scleral icterus. No conjunctival pallor. Normocephalic, atraumatic. No pharyngeal erythema. No thyromegaly. CARDIOVASCULAR: S1 and S2 muffled PULMONARY: Diminished breath sounds bilaterally with scattered expiratory wheezing. Faint bilateral basal crackles. Mildly tachypneic ABDOMEN: Soft, obese, nontender, nondistended, normoactive bowel sounds. No palpable organomegaly. MUSCULOSKELETAL: No joint swelling or deformity. EXTREMITIES: No cyanosis, clubbing,. Bilateral pitting leg edema. NEUROLOGICAL: Gross neurological examination did not reveal any focal deficits. SKIN: No rashes. no petechiae. Assessment: Acute on chronic diastolic CHF with preserved ejection fraction Acute COPD exacerbation Acute on chronic hypoxic respiratory failure secondary to COPD as well as CHF Morbid obesity with BMI of 66.4. History of coronary artery disease status post stent Diabetes mellitus Hypertension Hyperlipidemia History of osteoarthritis GI prophylaxis DVT prophylaxis Full code Plan: Patient is continued on IV Lasix and being transition to oral Bumex with cardiology following Repeat BMP ordered for a.m. to monitor kidney functions and electrolytes. Replace electrolytes per protocol Pulmonary following maintained on IV steroids along with breathing inhalational treatments and 4 L of oxygen. Case management following arranging for discharge planning including oxygen to manage her COPD Patient is tearful regarding overall health issues and feeling overwhelmed and unhelped. Encouraged patient to discuss with her primary care provider reg arding medication adjustments. Patient reports she feels her primary care provider is dismissive and has been asking for help with weight loss for quite some time. Encouraged increase activity as tolerated Continue diabetic heart healthy diet Due to multiple complex medical issues, prognosis is guarded Possible discharge in the next 24 hours The impression and plan of care has been dictated by Joelle Fitzgerald, Nurse Practitioner as directed. Dr. Tod MD I have performed a history and examination and MDM of this patient, discussed the same with the dictator, and agree with the dictator's assessment and plan as written ,documented as a scribe. Based on total visit time, I have performed more than 50% of the visit. Objective - Vital Signs Vital signs: Vital Signs Temp 97.8 F 10/23/23 20:00 Pulse 80 10/24/23 07:56 Resp 18 10/24/23 03:35 BP 131/73 10/24/23 03:35 Pulse Ox 90 L 10/24/23 03:35 FiO2 Intake & Output 10/23/23 10/24/23 10/24/23 18:59 06:59 18:59 Intake Total 1610 540 Output Total 2300 3000 600 Balance -690 -2460 -600 Weight 187.6 kg Intake: IV 10 Invasive Line 2 10 Oral 1600 540 Output: Urine 2300 3000 600 Other: Voiding Method External Catheter # Voids 1 - Labs CBC & Chem 7: 10/24/23 13:02 10/24/23 13:02 Labs: Abnormal Lab Results - Last 24 Hours (Table) 10/23/23 10/23/23 10/24/23 Range/Units 18:02 20:33 06:14 POC Glucose (mg/dL) 240 H 208 H 155 H (70-110) mg/dL
[2023-10-25 06:06] LABS: Glucose,Whole Blood 161 mg/dL (70-110)
[2023-10-25 09:16] LABS: Basophils % (A) 0 %; Eosinophils # (A) 0.2 k/uL (0-0.7); Eosinophils % (A) 1 %; HCT 48.9 % (34.0-46.0); HGB 15.4 gm/dL (11.4-16.0); Hypochromasia Slight; Lymphocytes # (A) 0.5 k/uL (1.0-4.8); Lymphocytes % (A) 4 %; MCH 27.8 pg (25.0-35.0); MCHC 31.4 g/dL (31.0-37.0); MCV 88.6 fL (80.0-100.0); Mean Platelet Volume 7.8; Monocytes # (A) 0.7 k/uL (0-1.0); Monocytes % (A) 5 %; Neutrophils # (A) 11.9 k/uL (1.3-7.7); Neutrophils % (A) 89 %; Platelet Count 314 k/uL (150-450); RBC 5.52 m/uL (3.80-5.40); RDW 15.7 % (11.5-15.5); WBC 13.4 k/uL (3.8-10.6)
[2023-10-25 09:26] LABS: African American GFR (CKD) >90 (>60 ml/min/1.73 sqM); Anion Gap 8 mmol/L; Blood Urea Nitrogen 38 mg/dL (7-17); Calcium 8.2 mg/dL (8.4-10.2); Carbon Dioxide 34 mmol/L (22-30); Chloride 93 mmol/L (98-107); Glucose 212 mg/dL (74-99); Non-African American GFR(CKD) >90 (>60 ml/min/1.73 sqM); Potassium 3.9 mmol/L (3.5-5.1); Sodium 135 mmol/L (137-145)
[2023-10-25 11:53] LABS: Glucose,Whole Blood 180 mg/dL (70-110)
--- NOTE | 2023-10-25 13:29 | P.PN ---
Subjective Progress Note Date: 10/25/23 This is a pleasant 53-year-old female patient who is morbidly obese and has a history of chronic diastolic congestive heart failure, chronic and ongoing tobacco dependence, oxygen dependent chronic obstructive pulmonary disease, hyperlipidemia, coronary disease with previous stent placement, preserved left ventricular systolic function with ejection fraction 55 to 60%. She presented here to the emergency room yesterday with complaints of increasing shortness of breath and swelling of her lower extremities. She was sent here from her PCP Dr. Christine's office. X-ray reveals borderline cardiomegaly with diffuse interstitial density. Mild CHF with pulmonary vascular congestion. Doppler of the lower right extremity negative for DVT. White count 6.9. Hemoglobin 14.2. Platelets 208. Sodium 138. Potassium 4.7. Bicarb 29. BUN 17. Creatinine 0.64. Glucose 144. Troponins were negative x 3. proBNP 924. Lactic acid 1.8. She is seen today in consultation on the regular medical floor. She is currently sitting up in a chair. Awake and alert in no acute distress. She is breathing a bit easier today compared to yesterday. She is requiring oxygen at 6 L high flow nasal cannula. She is normally on 2 to 4 L at home. She has been initiated on Lasix 40 mg IVP every 8 hours. Currently in a -3.2 L balance. She is afebrile. Hemodynamically stable The patient is seen today October 23, 2023 in follow-up on the selective care unit. She is currently resting comfortably in bed. Awake and alert in no acute distress. She is doing quite a bit better today compared to yesterday. Less shortness of breath. Less edema. Maintaining O2 saturations in the 90s on 4 L/min per nasal cannula. She remains on DuoNeb ventilations, Symbicort, Solu- Medrol. NicoDerm patch in place. Heparin for DVT prophylaxis. Continued on Lasix 40 mg IV every 8 hours. Currently in a -4.2 L balance. The patient is seen today October 24, 2023 in follow-up on the selective care unit. She is awake and alert in no acute distress. Resting comfortably in bed. She is maintaining O2 saturations in the 90s on 4 L/min per nasal cannula. Count 16.4. Hemoglobin 15.9. Platelets 307. Sodium 137. Potassium 4.0. Bicarb 38. BUN 33. Creatinine 0.80. Glucose 143. She remains on DuoNeb ventilations, Symbicort, Solu-Medrol. Heparin for DVT prophylaxis. Oral diuretics. NicoDerm patch in place. Currently in a -3.1 L balance. The patient is seen today October 25, 2023 in follow-up on the selective care unit. She is awake and alert in no acute distress. Sitting up in bed. Denies any worsening shortness of breath, cough or congestion. She is somewhat teary- eyed based on her home situation. Social work is involved. She is continued on DuoNeb elations, Symbicort, Solu-Medrol. Heparin for DVT prophylaxis. NicoDerm patch in place. White count 13.4. Hemoglobin 1415.4. Platelets 314. Sodium 135. Potassium 3.9. Bicarb 34. BUN 38. Creatinine 0.69. Glucose 212. Objective - Vital Signs Vital signs: Vital Signs Temp 97.8 F 10/25/23 08:00 Pulse 64 10/25/23 12:13 Resp 18 10/25/23 12:00 BP 125/64 10/25/23 12:00 Pulse Ox 92 L 10/25/23 12:00 FiO2 Intake & Output 10/24/23 10/25/23 10/25/23 18:59 06:59 18:59 Intake Total 1917 Output Total 1200 1350 Balance 717 -1350 Intake: Oral 1917 Output: Urine 1200 1350 Other: Voiding Method External Catheter External Catheter Indwelling Catheter # Bowel Movements 2 - Exam GENERAL EXAM: Alert, morbidly obese 53-year-old female, on 4 L nasal cannula, in no apparent distress. HEAD: Normocephalic. EYES: Normal reaction of pupils, equal size. NOSE: Clear with pink turbinates. THROAT: No erythema or exudates. NECK: No masses, no JVD. CHEST: No chest wall deformity. LUNGS: Equal air entry with crackles in the bilateral bases. CVS: S1 and S2 normal with no audible murmur, regular rhythm. ABDOMEN: Obesity, unable to appreciate organomegaly, normal bowel sounds, no guarding or rigidity. SPINE: No scoliosis or deformity SKIN: No rashes CENTRAL NERVOUS SYSTEM: No focal deficits, tone is normal in all 4 extremities. EXTREMITIES: Changes of chronic venous stasis. There is 1-2+ peripheral edema. No clubbing, no cyanosis. Peripheral pulses are intact. - Labs CBC & Chem 7: 10/25/23 08:59 10/25/23 08:59 Labs: Abnormal Lab Results - Last 24 Hours (Table) 10/24/23 10/24/23 10/24/23 Range/Units 13:02 13:02 16:58 WBC 16.4 H (3.8-10.6) k/uL RBC 5.71 H (3.80-5.40) m/uL Hct 50.6 H (34.0-46.0) % RDW 15.6 H (11.5-15.5) % Neutrophils # 14.8 H (1.3-7.7) k/uL Lymphocytes # 0.5 L (1.0-4.8) k/uL Sodium (137-145) mmol/L Chloride 94 L (98-107) mmol/L Carbon Dioxide 38 H (22-30) mmol/L BUN 33 H (7-17) mg/dL Glucose 143 H (74-99) mg/dL POC Glucose (mg/dL) 147 H (70-110) mg/dL Calcium (8.4-10.2) mg/dL 10/24/23 10/25/23 10/25/23 Range/Units 20:08 06:03 08:59 WBC 13.4 H (3.8-10.6) k/uL RBC 5.52 H (3.80-5.40) m/uL Hct 48.9 H (34.0-46.0) % RDW 15.7 H (11.5-15.5) % Neutrophils # 11.9 H (1.3-7.7) k/uL Lymphocytes # 0.5 L (1.0-4.8) k/uL Sodium (137-145) mmol/L Chloride (98-107) mmol/L Carbon Dioxide (22-30) mmol/L BUN (7-17) mg/dL Glucose (74-99) mg/dL POC Glucose (mg/dL) 234 H 161 H (70-110) mg/dL Calcium (8.4-10.2) mg/dL 10/25/23 10/25/23 Range/Units 08:59 11:51 WBC (3.8-10.6) k/uL RBC (3.80-5.40) m/uL Hct (34.0-46.0) % RDW (11.5-15.5) % Neutrophils # (1.3-7.7) k/uL Lymphocytes # (1.0-4.8) k/uL Sodium 135 L (137-145) mmol/L Chloride 93 L (98-107) mmol/L Carbon Dioxide 34 H (22-30) mmol/L BUN 38 H (7-17) mg/dL Glucose 212 H (74-99) mg/dL POC Glucose (mg/dL) 180 H (70-110) mg/dL Calcium 8.2 L (8.4-10.2) mg/dL Assessment and Plan Assessment: Acute on chronic hypoxemic respiratory failure secondary to an acute exacerbation of diastolic congestive heart failure Acute exacerbation of chronic obstructive pulmonary disease Chronic hypoxemic respiratory failure maintained on oxygen at 2 to 4 L at outpatient setting Chronic and ongoing tobacco dependence Morbid obesity with a BMI of 69.4 kg/m Suspect obesity/hypoventilation syndrome. Mainly sleeps up in a chair Coronary disease with previous stent placement Changes of chronic venous stasis of the lower extremity Hyperlipidemia Hypertension History of hearing disorder History of anxiety/depression History of marijuana use Plan: The patient was seen and evaluated Labs and medications reviewed Cleared for discharge from the pulmonary standpoint Continue her home oxygen Continue bronchodilators, prednisone taper Again educated regarding the importance of smoking cessation Again educated regarding the importance of weight loss Follow-up in our office in 1 week I have personally seen and examined the patient, performed the documentation and the assessment and plan as written. Number of minutes spent on the visit: 10.
[2023-10-25 13:33] VITALS: BP 125/64
[2023-10-25 14:08] VITALS: PULSE 72
--- NOTE | 2023-10-25 15:01 | P.PN ---
Subjective Progress Note Date: 10/25/23 HISTORY OF PRESENTING ILLNESS 53-year-old morbidly obese female presented to the hospital because of worsening dyspnea on exertion, shortness of breath. She has a past medical history of diastolic heart failure, smoking, COPD on oxygen, dyslipidemia, CAD with prior PCI by Dr. Melgoza. Prior echocardiogram showed an EF of 55 to 60%. On presentation her labs showed troponins negative x 3, BNP 900, lactate 1.8, bicarb 29, BUN 17, creatinine 0.6, sodium 138, potassium 4.7. Hemoglobin 14 X-ray showed increased interstitial markings and signs of pulm congestion. Patient reported that she had significant swelling in her bilateral lower and upper extremities. She has received 40 mg of IV Lasix every 8 hours and has significant urine output with a negative fluid balance of 3.2 L per Progress note 10/23/2023 Patient has responded well to IV diuretics. Patient reported that she had made significant amount of urine. She reports her swelling in bilateral upper and lower extremity has somewhat returned to her baseline. echocardiogram showed an EF of 55 to 60%, no obvious regional wall motion abnor mality. RV was poorly visualized. RVSP is elevated at 55 mmHg, IVC is dilated suggest fluid overload. 10/23 Patient denies any chest pain no lower extremity edema. She is been transition to oral Bumex. Plan is for discharge home tomorrow. Blood pressure 145/70, heart rate 72, pulse ox 93% on 4 L nasal cannula. Repeat blood work reveals WBC 16.4, hemoglobin 15.9, platelet count 307. Sodium 137, potassium 4.0, BUN 33 creatinine 0.8. Blood sugar 143. Patient has a negative fluid balance today of 3150. Weight is down half a kilogram from yesterday. Telemetry sinus rhythm. She still has 10/24 Patient is expecting discharge home today. She states she is going home on oxygen. She denies any cough she states is better. No chest pain, no dizziness, no nausea. She continues to have some dyspnea with exertion such as walking. No lower extremity edema. Blood pressure 125/64, heart rate 60s, pulse ox 92% on 4 L nasal cannula. Repeat blood work reveals WBC 13.4, hemoglobin 15, platelet count 314. Sodium 135, potassium 3.9, creatinine 0.69. PHYSICAL EXAMINATION Vital signs reviewed. Neck: Difficult to assess JVD due to body habitus Lungs: Scattered rhonchi and wheezing bilaterally Heart: Regular rate and rhythm, S1-S2, no S3, no murmur or rub. Abdomen: Soft nontender, positive bowel sounds. Extremities: 1+ pitting edema bilateral lower extremity. Neuro: Alert, oritented, no focal deficits. Detailed neuro exam was not performed. ASSESSMENT HFpEF exacerbation Moderate pulmonary hypertension, suspect obstructive sleep apnea COPD with chronic hypoxia on home oxygen Tobacco smoker Morbid obesity CAD s/p PCI LCx with in-stent stenosis with residual [employer] Continue oral Bumex 1 mg p.o. daily, Aldactone 25 mg daily, Farxiga 10 mg daily, lisinopril to 10 mg daily for diastolic heart failure. Continue metoprolol succinate 25 mg daily Continue Plavix for prior CAD with PCI Patient is cleared for discharge from cardiology and may follow-up with Dr. Melgoza in 1 to 2 weeks. Nurse practitioner note has been reviewed, I agree with documented findings and plan of care. Patient was seen and examined. Objective - Vital Signs Vital signs: Vital Signs Temp 97.8 F 10/25/23 08:00 Pulse 64 10/25/23 09:21 Resp 18 10/25/23 08:00 BP 126/70 10/25/23 08:00 Pulse Ox 94 L 10/25/23 09:14 FiO2 Intake & Output 10/24/23 10/25/23 10/25/23 18:59 06:59 18:59 Intake Total 1917 Output Total 1200 1350 Balance 717 -1350 Intake: Oral 1917 Output: Urine 1200 1350 Other: Voiding Method External Catheter External Catheter Indwelling Catheter # Bowel Movements 2 - Labs CBC & Chem 7: 10/25/23 08:59 10/25/23 08:59 Labs: Abnormal Lab Results - Last 24 Hours (Table) 10/24/23 10/24/23 10/24/23 Range/Units 13:02 13:02 16:58 WBC 16.4 H (3.8-10.6) k/uL RBC 5.71 H (3.80-5.40) m/uL Hct 50.6 H (34.0-46.0) % RDW 15.6 H (11.5-15.5) % Neutrophils # 14.8 H (1.3-7.7) k/uL Lymphocytes # 0.5 L (1.0-4.8) k/uL Sodium (137-145) mmol/L Chloride 94 L (98-107) mmol/L Carbon Dioxide 38 H (22-30) mmol/L BUN 33 H (7-17) mg/dL Glucose 143 H (74-99) mg/dL POC Glucose (mg/dL) 147 H (70-110) mg/dL Calcium (8.4-10.2) mg/dL 10/24/23 10/25/23 10/25/23 Range/Units 20:08 06:03 08:59 WBC 13.4 H (3.8-10.6) k/uL RBC 5.52 H (3.80-5.40) m/uL Hct 48.9 H (34.0-46.0) % RDW 15.7 H (11.5-15.5) % Neutrophils # 11.9 H (1.3-7.7) k/uL Lymphocytes # 0.5 L (1.0-4.8) k/uL Sodium (137-145) mmol/L Chloride (98-107) mmol/L Carbon Dioxide (22-30) mmol/L BUN (7-17) mg/dL Glucose (74-99) mg/dL POC Glucose (mg/dL) 234 H 161 H (70-110) mg/dL Calcium (8.4-10.2) mg/dL 10/25/23 Range/Units 08:59 WBC (3.8-10.6) k/uL RBC (3.80-5.40) m/uL Hct (34.0-46.0) % RDW (11.5-15.5) % Neutrophils # (1.3-7.7) k/uL Lymphocytes # (1.0-4.8) k/uL Sodium 135 L (137-145) mmol/L Chloride 93 L (98-107) mmol/L Carbon Dioxide 34 H (22-30) mmol/L BUN 38 H (7-17) mg/dL Glucose 212 H (74-99) mg/dL POC Glucose (mg/dL) (70-110) mg/dL Calcium 8.2 L (8.4-10.2) mg/dL
== END 2023-10-25 15:14 | disposition home health service (06) | DRG 291 ==
LOC: EC 16:26 → 3SCARD 20:12
PROVIDERS: ADMIT Hospitalist; ATTEND Hospitalist
DX: I11.0 Hypertensive heart disease with heart failure (principal); I50.33 Acute on chronic diastolic (congestive) heart failure; J96.21 Acute and chronic respiratory failure with hypoxia; Z68.44 Body mass index [BMI] 60.0-69.9, adult; E66.2 Morbid (severe) obesity with alveolar hypoventilation; J44.1 Chronic obstructive pulmonary disease with (acute) exacerbation; I25.10 Atherosclerotic heart disease of native coronary artery without angina pectoris; I25.2 Old myocardial infarction; H91.90 Unspecified hearing loss, unspecified ear; F41.9 Anxiety disorder, unspecified; F31.9 Bipolar disorder, unspecified; F17.210 Nicotine dependence, cigarettes, uncomplicated; Z71.6 Tobacco abuse counseling; E78.5 Hyperlipidemia, unspecified; I87.8 Other specified disorders of veins; I27.20 Pulmonary hypertension, unspecified; M19.90 Unspecified osteoarthritis, unspecified site; G89.29 Other chronic pain; I07.1 Rheumatic tricuspid insufficiency; G47.33 Obstructive sleep apnea (adult) (pediatric); I83.93 Asymptomatic varicose veins of bilateral lower extremities; Z88.0 Allergy status to penicillin; Z88.5 Allergy status to narcotic agent; Z88.7 Allergy status to serum and vaccine; Z86.14 Personal history of Methicillin resistant Staphylococcus aureus infection; Z79.02 Long term (current) use of antithrombotics/antiplatelets; Z79.899 Other long term (current) drug therapy; Z95.5 Presence of coronary angioplasty implant and graft; Z99.81 Dependence on supplemental oxygen
CPT/HCPCS: 36415; 71046; 80048; 80053; 83036; 83605; 83880; 84443; 84484; 85025; 85379; 85610; 85730; 93005; 93306; 94640; 94760; 96374; 96375; 96376; 99285

== ENCOUNTER 2024-12-28 20:43 | Emergency (ER) | payer MEDICARE, OTHER ==
[2024-12-28 20:52] VITALS: TEMP 98
[2024-12-28] MEDS: HYDROmorphone 1 MG/ML 1 ML SYRINGE IVP STA (21:44)
[2024-12-28 21:58] LABS: Basophils # (A) 0.09 10*3/uL (0.00-0.10); Basophils % (A) 0.8 %; Eosinophils # (A) 0.24 10*3/uL (0.04-0.35); HCT 44.7 % (37.2-46.3); HGB 15.1 g/dL (12.0-15.0); Lymphocytes # (A) 2.91 10*3/uL (0.90-5.00); Lymphocytes % (A) 24.6 %; MCHC 33.8 g/dL (32.0-37.0); MCV 88.9 fL (80.0-97.0); Monocytes # (A) 0.96 10*3/uL (0.20-1.00); Monocytes % (A) 8.1 %; Neutrophils # (A) 7.58 10*3/uL (1.80-7.70); Neutrophils % (A) 64.2 %; Platelet Count 275 10*3/uL (140-440); RBC 5.03 10*6/uL (4.10-5.20); WBC 11.82 10*3/uL (4.50-10.00)
--- NOTE | 2024-12-28 22:04 | XR ---
EXAMINATION TYPE: XR chest 2V DATE OF EXAM: 12/28/2024 9:56 PM COMPARISON: Chest radiograph 12/13/2023. CLINICAL INDICATION: Female, 54 years old with history of Chest Pain; [facility] TECHNIQUE: XR chest 2V Frontal and lateral views of the chest. FINDINGS: Lungs/Pleura: There is no evidence of pleural effusion, focal consolidation, or pneumothorax. Pulmonary vascularity: Unremarkable. Heart/mediastinum: Cardiomediastinal silhouette is unremarkable. Musculoskeletal: No acute osseous pathology. Other findings: None IMPRESSION: No acute cardiopulmonary disease/process. [facility], , 12/28/2024 10:02 PM
[2024-12-28 22:07] LABS: INR 0.9 (<1.2); Partial Thromboplastin Time 23.6 sec (22.0-30.0); Prothrombin Time 10.4 sec (10.0-12.5)
[2024-12-28 22:09] LABS: ALT 22 U/L (4-34); AST 20 U/L (14-36); African American GFR (CKD) 77 (>60 ml/min/1.73 sqM); Albumin 3.7 g/dL (3.5-5.0); Alkaline Phosphatase 83 U/L (38-126); Anion Gap 9 mmol/L; Blood Urea Nitrogen 19 mg/dL (7-17); Calcium 8.8 mg/dL (8.4-10.2); Carbon Dioxide 22 mmol/L (22-30); Chloride 107 mmol/L (98-107); Glucose 122 mg/dL (74-99); Magnesium 1.6 mg/dL (1.6-2.3); Non-African American GFR(CKD) 66 (>60 ml/min/1.73 sqM); Potassium 4.3 mmol/L (3.5-5.1); Sodium 138 mmol/L (137-145); Total Bilirubin 0.8 mg/dL (0.2-1.3); Total Protein 6.7 g/dL (6.3-8.2)
[2024-12-28 22:15] VITALS: BP 129/65; PULSE 57; RESP 18
[2024-12-28 22:17] LABS: NT-Pro-B-Type Natriuretic Pept 1090 pg/mL
--- NOTE | 2024-12-28 22:43 | ED ---
Neck Injury/Pain HPI - General Chief Complaint: Neck Pain/Injury Stated Complaint: Neck pain Time Seen by Provider: 12/28/24 20:50 Mode of arrival: EMS - History of Present Illness Initial Comments: 54 year old females with history of cva, mi, copd who presents with right sided neck pain. States she was having a coughing fit at home when she had sudden onset of right sided neck pain. described it as a shooting sensation that radiates from the base of her head into her right shoulder. Pain is worse with movement. She immediately called ems. They gave her fentanyl and she states it didnt help at all. She denies chest pain or shortness of breath. No fever. Cough is not productive. She has COPD, is on oxygen occasionally and still smokes. - Related Data Home Medications Medication Instructions Recorded Confirmed Atorvastatin [Lipitor] 80 mg PO DAILY 01/11/21 10/21/23 Metoprolol Succinate (ER) [Toprol 25 mg PO DAILY 01/11/21 10/21/23 XL] Albuterol Inhaler [Ventolin Hfa 2 puff INHALATION RT-QID PRN 10/21/23 10/21/23 Inhaler] Albuterol Nebulized [Ventolin 2.5 mg INHALATION RT-QID 10/21/23 10/21/23 Nebulized] Previous Rx's Medication Instructions Recorded Clopidogrel [Plavix] 75 mg PO DAILY #30 tab 09/19/22 Budesonide-Formot 160-4.5 Mcg 2 puff INHALATION RT-BID 30 Days 10/25/23 [Symbicort 160-4.5 Mcg Inhaler] #1 each Bumetanide [BUMEX] 1 mg PO DAILY #30 tab 10/25/23 Dapagliflozin Propanediol [Farxiga] 10 mg PO DAILY #30 tab 10/25/23 Ipratropium-Albuterol Nebulize 3 ml INHALATION RT-QID #100 each 10/25/23 [Duoneb 0.5 mg-3 mg/3 ml Soln] Nicotine 21Mg/24Hr Patch [Habitrol] 1 patch TRANSDERM DAILY #30 patch 10/25/23 Spironolactone [Aldactone] 25 mg PO DAILY #30 tab 10/25/23 lisinopriL [Zestril] 10 mg PO DAILY #30 tab 10/25/23 predniSONE 10 mg PO DIRECTED #30 tab 10/25/23 diazePAM [Valium] 5 mg PO Q8H PRN 3 Days #9 tab 12/28/24 Allergies Allergy/AdvReac Type Severity Reaction Status Date / Time codeine Allergy Anaphylaxis Verified 12/28/24 20:52 Influenza Virus Vaccines Allergy Anaphylaxis Verified 12/28/24 20:52 Penicillins Allergy Anaphylaxis Verified 12/28/24 20:52 Review of Systems ROS Statement: Those systems with pertinent positive or pertinent negative responses have been documented in the HPI. ROS Other: All systems not noted in ROS Statement are negative. Past Medical History Past Medical History: Chest Pain / Angina, Heart Failure, COPD, CVA/TIA, Hearing Disorder / Deafness, Hyperlipidemia, Hypertension, Myocardial Infarction (HI), Osteoarthritis (OA), Skin Disorder Additional Past Medical History / Comment(s): See Dr Melgoza's H&P. SOB with activity, has O2 that she uses as needed, but states it was not prescibed to her, it was her Dad's. Chronic back, knee and hip pain. Hx HI X4. Varicose veins. Acne. Last Myocardial Infarction Date:: 2012 History of Any Multi-Drug Resistant Organisms: MRSA Date of last positivie culture/infection: 09/08/2015 MDRO Source:: Abdomen Past Surgical History: Section, Heart Catheterization With Stent, Hernia Repair, Tubal Ligation Additional Past Surgical History / Comment(s): Cardiac stents 2012 and 2015, abdominal hernia repair initially done in 2003, with revision 10/23/2014, abdominal wall exploration and placement of wound vac, abdominal wound surgical debridement X3 January 2015. Past Anesthesia/Blood Transfusion Reactions: Previous Problems w/ Anesthesia, Motion Sickness Additional Past Anesthesia/Blood Transfusion Reaction / Comment(s): Very hard time coming out of anesthesia. Dad and Mom have hard time up waking up. Date of Last Stent Placement:: 2016 Past Psychological History: Anxiety, Bipolar, Depression Smoking Status: Current every day smoker Past Alcohol Use History: Occasional Past Drug Use History: Marijuana - Past Family History Father Family Medical History: COPD, CVA/TIA, Diabetes Mellitus, Deep Vein Thrombosis (DVT) Mother Family Medical History: COPD Additional Family Medical History / Comment(s): Hiatal hernia, anxiety. Sister(s) Family Medical History: Cancer Additional Family Medical History / Comment(s): Lung cancer. General Exam General appearance: alert, in distress Head exam: Present: atraumatic, normocephalic, normal inspection Eye exam: Present: normal appearance, PERRL, EOMI. Absent: scleral icterus, conjunctival injection, periorbital swelling ENT exam: Present: normal exam, mucous membranes moist Neck exam: Present: tenderness (to the trapezius muscle on the right). Absent: meningismus, lymphadenopathy Respiratory exam: Present: normal lung sounds bilaterally. Absent: respiratory distress, wheezes, rales, rhonchi, stridor Cardiovascular Exam: Present: regular rate, normal rhythm, normal heart sounds. Absent: systolic murmur, diastolic murmur, rubs, gallop, clicks GI/Abdominal exam: Present: soft, normal bowel sounds. Absent: distended, tenderness, guarding, rebound, rigid Extremities exam: Present: normal inspection, full ROM, normal capillary refill. Absent: tenderness, pedal edema, joint swelling, calf tenderness Back exam: Present: normal inspection Neurological exam: Present: alert, oriented X3, CN II-XII intact Psychiatric exam: Present: normal affect, normal mood Skin exam: Present: warm, dry, intact, normal color. Absent: rash Course Vital Signs 12/28/24 12/28/24 20:44 22:14 Temperature 98.0 F Pulse Rate 108 H 57 L Respiratory 22 18 Rate Blood Pressure 114/80 129/65 O2 Sat by Pulse 95 91 L Oximetry Medical Decision Making - Medical Decision Making Was pt. sent in by a medical professional or institution (, PA, SUBSTITUTE NURSE, urgent care, hospital, or half-way...) When possible be specific @ -No Did you speak to anyone other than the patient for history (EMS, parent, family, police, friend...)? What history was obtained from this source @ -spoke with ems for history Did you review nursing and triage notes (agree or disagree)? Why? @ -I reviewed and agree with nursing and triage notes Were old charts reviewed (outside hosp., previous admission, EMS record, old EKG, old radiological studies, urgent care reports/EKG's, half-way records)? Report findings @ -No old charts were reviewed Differential Diagnosis (chest pain, altered mental status, abdominal pain women, abdominal pain men, vaginal bleeding, weakness, fever, dyspnea, syncope, headache, dizziness, GI bleed, back pain, seizure, CVA, palpatations, mental health, musculoskeletal)? @ -neck strain, torticollis, HI, ACS EKG interpreted by me (3pts min.). @ -Yes and demonstrates sinus rhythm with PACs with a rate of 65. QRS 108. QTc of 438. No acute ST segment elevations or depressions. X-rays interpreted by me (1pt min.). @ -yes and demonstrates no acute process CT interpreted by me (1pt min.). @ -None done U/S interpreted by me (1pt. min.). @ -None done What testing was considered but not performed or refused? (CT, X-rays, U/S, labs)? Why? @ -serial troponins - patient refused and wants to go home What meds were considered but not given or refused? Why? @ -None Did you discuss the management of the patient with other professionals (professionals i.e. , PA, SUBSTITUTE NURSE, lab, RT, psych nurse, social work supervisor, paper control clerk, teacher, protocol officer, director of casework department)? Give summary @ -No Was smoking cessation discussed for >3mins.? @ -yes, patient seems open to quiting. Reports she has cut down already Was critical care preformed (if so, how long)? @ -No Were there social determinants of health that impacted care today? How? (Homelessness, low income, unemployed, alcoholism, drug addiction, transportation, low edu. Level, literacy, decrease access to med. care, care home, rehab)? @ -No Was there de-escalation of care discussed even if they declined (Discuss DNR or withdrawal of care, Hospice)? DNR status @ -No What co-morbidities impacted this encounter? (DM, HTN, Smoking, COPD, CAD, Can cer, CVA, ARF, Chemo, Hep., AIDS, mental health diagnosis, sleep apnea, morbid obesity)? @ -copd, CAD Was patient admitted / discharged? Hospital course, mention meds given and route, prescriptions, significant lab abnormalities, going to OR and other pertinent info. @ -Discharged. Patient evaluated in room 6. History and physical performed. Patient has palpable pain to palpation of the right neck. Given Dilaudid and Valium. Labs and xray performed. Reommended admission due to cardiac history but patient adamently wants to go home. States her pain is resolved at this time. Patient provided with valium rx incase spam reoccurs. Recommend she follow up with her PCP and return for any new or worsening symptoms. Undiagnosed new problem with uncertain prognosis? @ -No Drug Therapy requiring intensive monitoring for toxicity (Heparin, Nitro, Insulin, Cardizem)? @ -No Were any procedures done? @ -No Diagnosis/symptom? @ -acute right neck strain, hx ascad Acute, or Chronic, or Acute on Chronic? @ -acute Uncomplicated (without systemic symptoms) or Complicated (systemic symptoms)? @ -uncomplicated Side effects of treatment? @ -No Exacerbation, Progression, or Severe Exacerbation? @ -No Poses a threat to life or bodily function? How? (Chest pain, USA, HI, pneumonia, PE, COPD, DKA, ARF, appy, cholecystitis, CVA, Diverticulitis, Homicidal, Suicidal, threat to staff... and all critical care pts) @ -No - Lab Data Result diagrams: 12/28/24 21:47 12/28/24 21:47 Lab Results 12/28/24 12/28/24 12/28/24 Range/Units 21:47 21:47 21:47 WBC 11.82 H (4.50-10.00) 10*3/uL RBC 5.03 (4.10-5.20) 10*6/uL Hgb 15.1 H (12.0-15.0) g/dL Hct 44.7 (37.2-46.3) % MCV 88.9 (80.0-97.0) fL MCH 30.0 (27.0-32.0) pg MCHC 33.8 (32.0-37.0) g/dL Plt Count 275 (140-440) 10*3/uL MPV 10.0 (9.5-12.2) fL Immature Gran % (Auto) 0.3 % Neutrophils % 64.2 % Lymphocytes % 24.6 % Monocytes % 8.1 % Eosinophils % 2.0 % Basophils % 0.8 % Immature Gran # 0.04 (0.00-0.04) 10*3/uL Neutrophils # 7.58 (1.80-7.70) 10*3/uL Lymphocytes # 2.91 (0.90-5.00) 10*3/uL Monocytes # 0.96 (0.20-1.00) 10*3/uL Eosinophils # 0.24 (0.04-0.35) 10*3/uL Basophils # 0.09 (0.00-0.10) 10*3/uL PT 10.4 (10.0-12.5) sec INR 0.9 (<1.2) APTT 23.6 (22.0-30.0) sec Sodium 138 (137-145) mmol/L Potassium 4.3 (3.5-5.1) mmol/L Chloride 107 (98-107) mmol/L Carbon Dioxide 22 (22-30) mmol/L Anion Gap 9 mmol/L BUN 19 H (7-17) mg/dL Creatinine 0.96 (0.52-1.04) mg/dL Est GFR (CKD-EPI)AfAm 77 (>60 ml/min/1.73 sqM) Est GFR (CKD-EPI)NonAf 66 (>60 ml/min/1.73 sqM) Glucose 122 H (74-99) mg/dL Calcium 8.8 (8.4-10.2) mg/dL Magnesium 1.6 (1.6-2.3) mg/dL Total Bilirubin 0.8 (0.2-1.3) mg/dL AST 20 (14-36) U/L ALT 22 (4-34) U/L Alkaline Phosphatase 83 (38-126) U/L Troponin I (0.000-0.034) ng/mL NT-Pro-B Natriuret Pep 1090 pg/mL Total Protein 6.7 (6.3-8.2) g/dL Albumin 3.7 (3.5-5.0) g/dL 12/28/24 Range/Units 21:47 WBC (4.50-10.00) 10*3/uL RBC (4.10-5.20) 10*6/uL Hgb (12.0-15.0) g/dL Hct (37.2-46.3) % MCV (80.0-97.0) fL MCH (27.0-32.0) pg MCHC (32.0-37.0) g/dL Plt Count (140-440) 10*3/uL MPV (9.5-12.2) fL Immature Gran % (Auto) % Neutrophils % % Lymphocytes % % Monocytes % % Eosinophils % % Basophils % % Immature Gran # (0.00-0.04) 10*3/uL Neutrophils # (1.80-7.70) 10*3/uL Lymphocytes # (0.90-5.00) 10*3/uL Monocytes # (0.20-1.00) 10*3/uL Eosinophils # (0.04-0.35) 10*3/uL Basophils # (0.00-0.10) 10*3/uL PT (10.0-12.5) sec INR (<1.2) APTT (22.0-30.0) sec Sodium (137-145) mmol/L Potassium (3.5-5.1) mmol/L Chloride (98-107) mmol/L Carbon Dioxide (22-30) mmol/L Anion Gap mmol/L BUN (7-17) mg/dL Creatinine (0.52-1.04) mg/dL Est GFR (CKD-EPI)AfAm (>60 ml/min/1.73 sqM) Est GFR (CKD-EPI)NonAf (>60 ml/min/1.73 sqM) Glucose (74-99) mg/dL Calcium (8.4-10.2) mg/dL Magnesium (1.6-2.3) mg/dL Total Bilirubin (0.2-1.3) mg/dL AST (14-36) U/L ALT (4-34) U/L Alkaline Phosphatase (38-126) U/L Troponin I <0.012 (0.000-0.034) ng/mL NT-Pro-B Natriuret Pep pg/mL Total Protein (6.3-8.2) g/dL Albumin (3.5-5.0) g/dL Disposition Clinical Impression: Cervical strain, acute Disposition: HOME SELF-CARE Condition: Stable Instructions (If sedation given, give patient instructions): Cervical Strain (ED) Additional Instructions: Please take the Valium up to 3 times daily for neck pain. Place warm compresses to the site. Follow-up with your pin maker and return for any new or worsening symptoms Prescriptions: diazePAM [Valium] 5 mg PO Q8H PRN 3 Days #9 tab PRN Reason: Muscle Pain Is patient prescribed a controlled substance at d/c from ED?: Yes When asked, does pt state using other controlled substances?: No If prescribed controlled substance>3 days was MAPS reviewed?: Prescribed <3 Days Referrals: Goyo Christine DO [Primary Care Provider] - 1-2 days Micheal Melgoza MD [STAFF PHYSICIAN] - 1-2 days Time of Disposition: 22:43
== END 2024-12-28 23:10 | disposition home or self-care (01) ==
LOC: EC 20:43
DX: S16.1XXA Strain of muscle, fascia and tendon at neck level, initial encounter (principal); Z86.73 Personal history of transient ischemic attack (TIA), and cerebral infarction without residual deficits; F17.200 Nicotine dependence, unspecified, uncomplicated; Z88.0 Allergy status to penicillin; Z88.7 Allergy status to serum and vaccine; Z88.5 Allergy status to narcotic agent; X50.0XXA Overexertion from strenuous movement or load, initial encounter
CPT/HCPCS: 36415; 93005; 83880; 80053; 83735; 84484; 85025; 85610; 85730; 71046; 99284; 96374; 96375; J3360; J1171